=== PATIENT | female | born 1945 | race Caucasian/White ===

== ENCOUNTER 2019-02-18 03:45 | Emergency (ER) | payer MEDICARE, BC ==
[2019-02-18 03:54] VITALS: RESP 18; TEMP 97.7
[2019-02-18] MEDS ORDERED: DIAZEPAM 5 MG/ML 2 ML INJ IM ONE (04:18)
--- NOTE | 2019-02-18 04:30 | ED ---
Back Pain HPI - General Chief Complaint: Back Pain/Injury Stated Complaint: back pain Source: patient, family Limitations: no limitations - History of Present Illness Initial Comments: Anai is a 73-year-old female with a history of chronic back pain for which she is following with neurology. Patient reports that last week she had a cough which seemed to worsen on the spasms in her back. Patient reports that she has seen her primary care physician and was given a shot of anti-inflammatories with no improvement in her back pain. Patient reports she's been unable to sleep tonight due to feeling like her entire back is spasming. Patient reports this is similar to previous episodes of back pain but worse. Patient's been taking anti-inflammatories with no relief. She has a normal gait she denies any weakness in her legs, constipation, L or bladder incontinence. MD Complaint: back pain -: days(s) Place: home Radiation: none Severity: severe Quality: other (spasm) Consistency: constant Improves With: none Worsens With: movement, deep breaths/cough Treatments Prior to Arrival: cold therapy, heat therapy, NSAIDS - Related Data Allergies Allergy/AdvReac Type Severity Reaction Status Date / Time epinephrine Allergy Rash/Hives Verified 02/18/19 03:54 meperidine [From Demerol] Allergy Rash/Hives Verified 02/18/19 03:54 Sulfa (Sulfonamide Allergy Rash/Hives Verified 02/18/19 03:54 Antibiotics) vancomycin Allergy Rash/Hives Verified 02/18/19 03:54 Review of Systems ROS Statement: Those systems with pertinent positive or pertinent negative responses have been documented in the HPI. ROS Other: All systems not noted in ROS Statement are negative. Past Medical History Past Medical History: Hypertension Additional Past Medical History / Comment(s): sciatica History of Any Multi-Drug Resistant Organisms: None Reported Past Surgical History: Appendectomy, Back Surgery, Heart Catheterization, Hysterectomy, Joint Replacement, Orthopedic Surgery, Pacemaker, Tonsillectomy, Tubal Ligation Additional Past Surgical History / Comment(s): carpal tunnel, cataracts, cornea transplant Past Psychological History: No Psychological Hx Reported Smoking Status: Never smoker Past Alcohol Use History: None Reported Past Drug Use History: None Reported General Exam - General Exam Comments Initial Comments: Physical Exam GENERAL: Patient sitting up in bed crying HENT: Normocephalic, Atraumatic. EYES: PERRL, EOMI PULMONARY: Unlabored respirations. CARDIOVASCULAR: RRR ABDOMEN: Soft and nontender with normal bowel sounds. SKIN: Skin is clear with no lesions or rashes and otherwise unremarkable. : Deferred NEUROLOGIC: Patient is alert and oriented x3. Moving all extremities spontaneously MUSCULOSKELETAL: Tenderness to any palpation of the entire back. No focal tenderness. No skin abnormalities. PSYCHIATRIC: Normal psychiatric evaluation Limitations: no limitations Course Vital Signs 02/18/19 02/18/19 03:47 05:08 Temperature 97.7 F Pulse Rate 89 77 Respiratory 18 18 Rate Blood Pressure 146/86 158/86 O2 Sat by Pulse 98 100 Oximetry - Reevaluation(s) Reevaluation #1: I returned to the patients room, she was laying in bed, upon my entry into the room she sat up and again began moaning and stating that the medication isnt working 02/18/19 04:57 Medical Decision Making - Medical Decision Making Patient was seen and evaluated history is obtained from the patient and at bedside Patient with a history of chronic back pain and "throwing her back out" patient reports she has thrown her back out from coughing in the past week she has tried NSAIDs rest, heat, ice with no improvement. This morning it became intolerable a she's not been able to sleep all night. Patient is crying inconsolably. Valium will be ordered for muscle spasm. She was reevaluated after Valium, she appeared to be resting comfortably upon my entering but then began complaining of swelling. At this time IM morphine I'll be ordered. Patient received medications, she was observed to be sleeping comfortably. She reports feeling much better and is comfortable with plan for discharge home she will follow up outpatient with her primary care physician and neurologist to discuss further pain management. All questions pertaining care were answered return parameters were discussed the patient was discharged home in stable condition. Disposition Clinical Impression: Mechanical back pain Disposition: ADMITTED IP TO THIS HOSP Condition: Stable Instructions (If sedation given, give patient instructions): Acute Low Back Pain (ED) Is patient prescribed a controlled substance at d/c from ED?: No Referrals: Quita Ly DO [Primary Care Provider] - 1-2 days
[2019-02-18] MEDS ORDERED: LIDOCAINE 5% PATCH TOPICAL STA (04:57)
[2019-02-18] MEDS ORDERED: MORPHINE SULFATE 4 MG/ML SYRINGE IM STA (04:57)
[2019-02-18 05:09] VITALS: BP 158/86; PULSE 77
== END 2019-02-18 05:40 | disposition other institution (70) ==
LOC: EC 03:45
DX: M54.9 Dorsalgia, unspecified (principal); G89.29 Other chronic pain; M62.830 Muscle spasm of back; R45.83 Excessive crying of child, adolescent or adult; Z88.1 Allergy status to other antibiotic agents; Z88.2 Allergy status to sulfonamides; Z88.5 Allergy status to narcotic agent; Z88.6 Allergy status to analgesic agent; Z95.0 Presence of cardiac pacemaker; Z95.5 Presence of coronary angioplasty implant and graft
CPT/HCPCS: 99283; 96372 ×2; J2270; J3360

== ENCOUNTER → 2019-02-27 | Outpatient (CLI) | payer MEDICARE, BC ==
--- NOTE | 2019-03-13 10:35 | MM ---
Reason for exam: screening (asymptomatic). Last mammogram was performed 1 year and 3 months ago. History: Patient had first child at age 34. Family history of breast cancer in maternal aunt and breast cancer in maternal cousin. Physical Findings: A clinical breast exam by your physician is recommended on an annual basis and results should be correlated with mammographic findings. MG 3D Screening Mammo W/Cad Bilateral CC and MLO view(s) were taken. Prior study comparison: November 22, 2017, mammogram. November 14, 2016, mammogram. The breast tissue is heterogeneously dense. This may lower the sensitivity of mammography. There is no discrete abnormality. No significant changes when compared with prior studies. ASSESSMENT: Negative, BI-RAD 1 RECOMMENDATION: Routine screening mammogram of both breasts in 1 year.
== END | disposition home or self-care (01) ==
LOC: RADMAMWWP 08:27
PROVIDERS: ATTEND Family Medicine
DX: Z12.31 Encounter for screening mammogram for malignant neoplasm of breast (principal)
CPT/HCPCS: 77063; 77067

== ENCOUNTER 2019-06-23 12:11 | Emergency (ER) | payer BC, MEDICARE ==
[2019-06-23 12:22] VITALS: RESP 18
[2019-06-23] MEDS: SODIUM CHLORIDE 0.9% 500 ML 500 ML IV SCH (13:20)
--- NOTE | 2019-06-23 13:20 | ED ---
General Adult HPI - General Chief complaint: Extremity Problem,Nontraumatic Stated complaint: knee pain Time Seen by Provider: 06/23/19 12:51 Source: patient, RN notes reviewed Mode of arrival: wheelchair Limitations: physical limitation - History of Present Illness Initial comments: 73-year-old female with a past medical history of CAD, hypertension, total knee presents to the emergency department for a chief complaint of left knee pain. Patient states this started hurting yesterday and she is unable to walk on it. States that she had a total knee done in 2015. States that in February 2018 it became infected and had to be replaced. States all this was done in [place]. Denies any fevers or chills at this time. States that she sees Dr. Hdez for other orthopedic issues and states that if she were has a problem with the knee she could see Dr. Hunt.Patient has no other complaints at this time including shortness of breath, chest pain, abdominal pain, nausea or vomiting, headache, or visual changes. - Related Data Allergies Allergy/AdvReac Type Severity Reaction Status Date / Time epinephrine Allergy Rash/Hives Verified 06/23/19 12:21 meperidine [From Demerol] Allergy Rash/Hives Verified 06/23/19 12:21 Sulfa (Sulfonamide Allergy Rash/Hives Verified 06/23/19 12:21 Antibiotics) vancomycin Allergy Rash/Hives Verified 06/23/19 12:21 Review of Systems ROS Statement: Those systems with pertinent positive or pertinent negative responses have been documented in the HPI. ROS Other: All systems not noted in ROS Statement are negative. Past Medical History Past Medical History: Coronary Artery Disease (CAD), Hypertension, Myocardial Infarction (IA) Additional Past Medical History / Comment(s): sciatica History of Any Multi-Drug Resistant Organisms: None Reported Past Surgical History: Appendectomy, Back Surgery, Heart Catheterization, Hysterectomy, Joint Replacement, Orthopedic Surgery, Pacemaker, Tonsillectomy, Tubal Ligation Additional Past Surgical History / Comment(s): carpal tunnel, cataracts, cornea transplant Past Psychological History: No Psychological Hx Reported Smoking Status: Never smoker Past Alcohol Use History: None Reported Past Drug Use History: None Reported General Exam Limitations: physical limitation General appearance: alert, in no apparent distress Head exam: Present: atraumatic, normocephalic, normal inspection Eye exam: Present: normal appearance, PERRL, EOMI. Absent: scleral icterus, conjunctival injection, periorbital swelling ENT exam: Present: normal exam, mucous membranes moist Neck exam: Present: normal inspection, full ROM. Absent: tenderness, meni ngismus Respiratory exam: Present: normal lung sounds bilaterally. Absent: respiratory distress, wheezes, rales, rhonchi, stridor Cardiovascular Exam: Present: regular rate, normal rhythm, normal heart sounds. Absent: systolic murmur, diastolic murmur, rubs, gallop, clicks Extremities exam: Present: tenderness (Generalized tenderness of the left knee), normal capillary refill (cap refill less than 2 seconds, DP pulse 2+ in the left lower extremity), joint swelling (She does have edema with erythema noted of the left knee. There is an old surgical scar), other (Mild erythema is noted of the calf as well.). Absent: full ROM (Patient has about 10 flexion of the left knee which is limited by pain), pedal edema, calf tenderness (She does have calf tenderness) Course Vital Signs 06/23/19 06/23/19 06/23/19 12:19 13:01 15:35 Temperature 99.2 F 100.0 F H 100.9 F H Pulse Rate 109 H 104 H Respiratory 18 18 Rate Blood Pressure 132/67 161/81 O2 Sat by Pulse 97 97 Oximetry Procedures - Joint Aspiration/Injection Consent Obtained: verbal consent Indications: R/O septic arthritis Side of Body: left Joint Aspirated: knee Ultrasound Guidance: No Skin Prep: sterile prep and drape Local Anesthesia Used: Lidocaine 1% Amount of Anesthesia Used (mLs): 2 Needle Size Used: 18G Syringe Size Used: 10cc Fluid Obtained: purulent Total Fluid Obtained (mls): 40 Patient Tolerated Procedure: well, no complications Complications: none Medical Decision Making - Medical Decision Making She was evaluated. HPI and physical exam as documented. Patient has edema and erythema noted to the left knee with tenderness flexion. CBC was obtained which shows a white count of 15.5 with a left shift. CMP unremarkable. ESR of 40. CRP of 246. X-ray of the left knee shows arthroplasty. Prosthetic elements appearing good position. Ultrasound was obtained that showed no evidence of DVT in the left leg. I did tap the left knee and got 40 mL of cloudy yellow fluid. These results are pending. Patient was started on Rocephin. Patient is ALLERGIC to vancomycin with symptoms of angioedema. I spoke with Dr. Connell regarding this patient. He does not feel comfortable revising a hinged stem replacement. He spoke with Dr. Hdez and Dr Benavidez who also do not feel comfortable managing this revision. Dr. Connell recommended Located [facility] given advanced Joint replacement program. Dr. Mendez did accept the patient. Abbe from transfer team called back and recommended not starting antibiotics in this patient unless she is septic. I did relay to him that she is febrile and I did give 1 dose of Rocephin. I discussed with him that vancomycin was not given as patient is ALLERGIC and he will alert Dr. Mendez. - Lab Data Result diagrams: 06/23/19 13:25 06/23/19 13:25 Lab Results 06/23/19 06/23/19 06/23/19 Range/Units 13:25 13:25 13:25 WBC 15.5 H (3.8-10.6) k/uL RBC 4.66 (3.80-5.40) m/uL Hgb 13.5 (11.4-16.0) gm/dL Hct 39.7 (34.0-46.0) % MCV 85.2 (80.0-100.0) fL MCH 29.0 (25.0-35.0) pg MCHC 34.0 (31.0-37.0) g/dL RDW 12.8 (11.5-15.5) % Plt Count 386 (150-450) k/uL Neutrophils % 86 % Lymphocytes % 4 % Monocytes % 7 % Eosinophils % 1 % Basophils % 1 % Neutrophils # 13.3 H (1.3-7.7) k/uL Lymphocytes # 0.6 L (1.0-4.8) k/uL Monocytes # 1.0 (0-1.0) k/uL Eosinophils # 0.1 (0-0.7) k/uL Basophils # 0.2 (0-0.2) k/uL ESR 40 H (0-20) mm/hr PT (9.0-12.0) sec INR (<1.2) APTT (22.0-30.0) sec Sodium 134 L (137-145) mmol/L Potassium 3.8 (3.5-5.1) mmol/L Chloride 100 (98-107) mmol/L Carbon Dioxide 25 (22-30) mmol/L Anion Gap 9 mmol/L BUN 15 (7-17) mg/dL Creatinine 0.71 (0.52-1.04) mg/dL Est GFR (CKD-EPI)AfAm >90 (>60 ml/min/1.73 sqM) Est GFR (CKD-EPI)NonAf 86 (>60 ml/min/1.73 sqM) Glucose 113 H (74-99) mg/dL Plasma Lactic Acid Maycol 0.6 L (0.7-2.0) mmol/L Calcium 9.4 (8.4-10.2) mg/dL Total Bilirubin 0.5 (0.2-1.3) mg/dL AST 19 (14-36) U/L ALT 16 (9-52) U/L Alkaline Phosphatase 74 (38-126) U/L C-Reactive Protein 246.6 H (<10.0) mg/L Total Protein 6.9 (6.3-8.2) g/dL Albumin 3.9 (3.5-5.0) g/dL Fluid Source Fluid Color Fluid Appearance Fluid RBC /uL Fluid Nucleated Cells /uL Fluid Polynuclear WBCs % Fluid Mononuclear WBCs % 06/23/19 06/23/19 Range/Units 13:25 15:00 WBC (3.8-10.6) k/uL RBC (3.80-5.40) m/uL Hgb (11.4-16.0) gm/dL Hct (34.0-46.0) % MCV (80.0-100.0) fL MCH (25.0-35.0) pg MCHC (31.0-37.0) g/dL RDW (11.5-15.5) % Plt Count (150-450) k/uL Neutrophils % % Lymphocytes % % Monocytes % % Eosinophils % % Basophils % % Neutrophils # (1.3-7.7) k/uL Lymphocytes # (1.0-4.8) k/uL Monocytes # (0-1.0) k/uL Eosinophils # (0-0.7) k/uL Basophils # (0-0.2) k/uL ESR (0-20) mm/hr PT 9.8 (9.0-12.0) sec INR 0.9 (<1.2) APTT 24.4 (22.0-30.0) sec Sodium (137-145) mmol/L Potassium (3.5-5.1) mmol/L Chloride (98-107) mmol/L Carbon Dioxide (22-30) mmol/L Anion Gap mmol/L BUN (7-17) mg/dL Creatinine (0.52-1.04) mg/dL Est GFR (CKD-EPI)AfAm (>60 ml/min/1.73 sqM) Est GFR (CKD-EPI)NonAf (>60 ml/min/1.73 sqM) Glucose (74-99) mg/dL Plasma Lactic Acid Maycol (0.7-2.0) mmol/L Calcium (8.4-10.2) mg/dL Total Bilirubin (0.2-1.3) mg/dL AST (14-36) U/L ALT (9-52) U/L Alkaline Phosphatase (38-126) U/L C-Reactive Protein (<10.0) mg/L Total Protein (6.3-8.2) g/dL Albumin (3.5-5.0) g/dL Fluid Source Synovial Fluid Color Yellow Fluid Appearance Cloudy Fluid RBC 1250 /uL Fluid Nucleated Cells 82909 /uL Fluid Polynuclear WBCs 85 % Fluid Mononuclear WBCs 15 % Disposition Clinical Impression: Septic joint of left knee joint Disposition: OTHER INSTITUTION NOT DEFINED Condition: Good Is patient prescribed a controlled substance at d/c from ED?: No Referrals: Quita Ly DO [Primary Care Provider] - 1-2 days Time of Disposition: 16:19 - Out of Hospital Transfer - Req. Specs Out of Hospital Transfer - Requested Specifics: Other Emergency Center (Located Within [facility])
[2019-06-23 13:40] LABS: Basophils # (A) 0.2 k/uL (0-0.2); Basophils % (A) 1 %; Eosinophils # (A) 0.1 k/uL (0-0.7); Eosinophils % (A) 1 %; HCT 39.7 % (34.0-46.0); HGB 13.5 gm/dL (11.4-16.0); Lymphocytes # (A) 0.6 k/uL (1.0-4.8); Lymphocytes % (A) 4 %; MCV 85.2 fL (80.0-100.0); Mean Platelet Volume 5.7; Monocytes % (A) 7 %; Neutrophils # (A) 13.3 k/uL (1.3-7.7); Neutrophils % (A) 86 %; Platelet Count 386 k/uL (150-450); RBC 4.66 m/uL (3.80-5.40); RDW 12.8 % (11.5-15.5); WBC 15.5 k/uL (3.8-10.6)
[2019-06-23 13:50] LABS: INR 0.9 (<1.2); Partial Thromboplastin Time 24.4 sec (22.0-30.0); Prothrombin Time 9.8 sec (9.0-12.0)
[2019-06-23 13:52] LABS: ALT 16 U/L (9-52); AST 19 U/L (14-36); African American GFR (CKD) >90 (>60 ml/min/1.73 sqM); Albumin 3.9 g/dL (3.5-5.0); Alkaline Phosphatase 74 U/L (38-126); Anion Gap 9 mmol/L; Blood Urea Nitrogen 15 mg/dL (7-17); Calcium 9.4 mg/dL (8.4-10.2); Carbon Dioxide 25 mmol/L (22-30); Chloride 100 mmol/L (98-107); Glucose 113 mg/dL (74-99); Potassium 3.8 mmol/L (3.5-5.1); Sodium 134 mmol/L (137-145); Total Bilirubin 0.5 mg/dL (0.2-1.3); Total Protein 6.9 g/dL (6.3-8.2)
[2019-06-23 14:06] LABS: C Reactive Protein 246.6 mg/L (<10.0)
--- NOTE | 2019-06-23 14:16 | US ---
EXAMINATION TYPE: US venous doppler duplex LE LT DATE OF EXAM: 06/23/2019 2:08 PM COMPARISON: NONE CLINICAL HISTORY: swelling. Left leg swelling for more than 1 year, left leg pain x 2 days SIDE PERFORMED: Left TECHNIQUE: The lower extremity deep venous system is examined utilizing real time linear array sonog bebeto with graded compression, doppler sonography and color-flow sonography. VESSELS IMAGED: External Iliac Vein (EIV) Common Femoral Vein Deep Femoral Vein Greater Saphenous Vein * Femoral Vein Popliteal Vein Small Saphenous Vein * Proximal Calf Veins (* superficial vessels) Left Leg: Appears negative for DVT IMPRESSION: No evidence of deep venous thrombosis in the left leg.
[2019-06-23 14:17] LABS: Erythrocyte Sedimentation Rate 40 mm/hr (0-20)
--- NOTE | 2019-06-23 14:17 | XR ---
EXAMINATION TYPE: XR knee complete LT , 3 VIEWS DATE OF EXAM ORDERED: 06/23/2019 HISTORY: pain, total knee 1 yr ago. COMPARISON: None. FINDINGS: A longstem knee prosthesis is in place. Prosthetic elements appear in good position. No fr acture or dislocation is seen. IMPRESSION: STATUS POST LEFT KNEE ARTHROPLASTY.
[2019-06-23 15:37] LABS: Appearance,BF Cloudy; Color,BF Yellow; Nucleated Cells, Body Fluid 44900 /uL; RBC, Body Fluid 1250 /uL
[2019-06-23 15:42] LABS: Mononuclear WBC,Body Fluid 15 %; Polynuclear WBC,Body Fluid 85 %; Total Cells Counted,Body Fluid 100
[2019-06-23] MEDS ORDERED: ACETAMINOPHEN TAB 325 MG TAB PO STA (16:01)
[2019-06-23] MEDS ORDERED: cefTRIAXone IN SWFI 1,000 MG/10 ML SYRINGE IVP STA ×2 (16:04→16:10)
[2019-06-23 16:54] VITALS: BP 157/81; PULSE 102; TEMP 99.4
[2019-06-24 10:24] LABS: Glucose, BF Source Body Fluid; Glucose, Body Fluid <4 mg/dL; LDH, Body Fluid Source Body Fluid
[2019-06-24 10:35] LABS: Total Protein, Body Fluid 5200 mg/dL
== END 2019-06-23 17:01 | disposition short-term general hospital (02) ==
LOC: EC 12:11
DX: M00.862 Arthritis due to other bacteria, left knee (principal); Z88.1 Allergy status to other antibiotic agents; Z88.2 Allergy status to sulfonamides; Z88.5 Allergy status to narcotic agent; Z88.8 Allergy status to other drugs, medicaments and biological substances
CPT/HCPCS: 36415; 89060; 80053; 85652; 89050; 83605; 85025; 85610; 85730; 86140; 87040; 87070; 87205; 82945; 83615; 84157; 73562; 93971; 99285; 20610; 96365; 96361; J0696

== ENCOUNTER → 2020-03-17 | Outpatient (CLI) | payer MEDICARE ==
--- NOTE | 2020-03-18 08:38 | MM ---
Reason for exam: screening (asymptomatic). Last mammogram was performed 1 year and 1 month ago. History: Patient had first child at age 34. Family history of breast cancer in maternal aunt and breast cancer in maternal cousin. Physical Findings: A clinical breast exam by your physician is recommended on an annual basis and results should be correlated with mammographic findings. MG 3D Screening Mammo W/Cad Bilateral CC and MLO view(s) were taken. Prior study comparison: February 27, 2019, bilateral MG 3d screening mammo w/cad. November 22, 2017, mammogram. There are scattered fibroglandular densities. There are benign appearing round calcifications bilaterally. There is no discrete abnormality. Left axillary pacemaker. ASSESSMENT: Benign, BI-RAD 2 RECOMMENDATION: Routine screening mammogram of both breasts in 1 year.
== END | disposition home or self-care (01) ==
LOC: RADMAMWWP 09:15
PROVIDERS: ATTEND Family Medicine
DX: Z12.31 Encounter for screening mammogram for malignant neoplasm of breast (principal)
CPT/HCPCS: 77063; 77067

== ENCOUNTER → 2020-04-16 | Outpatient (CLI) | payer MEDICARE ==
[2020-04-16 14:25] LABS: Basophils # (A) 0.1 k/uL (0-0.2); Basophils % (A) 1 %; Eosinophils # (A) 0.3 k/uL (0-0.7); Eosinophils % (A) 4 %; HCT 38.2 % (34.0-46.0); HGB 12.1 gm/dL (11.4-16.0); Lymphocytes % (A) 12 %; MCH 26.8 pg (25.0-35.0); MCHC 31.7 g/dL (31.0-37.0); MCV 84.3 fL (80.0-100.0); Mean Platelet Volume 7.6; Monocytes # (A) 0.4 k/uL (0-1.0); Monocytes % (A) 5 %; Neutrophils # (A) 5.8 k/uL (1.3-7.7); Neutrophils % (A) 75 %; Platelet Count 293 k/uL (150-450); RBC 4.53 m/uL (3.80-5.40); RDW 14.1 % (11.5-15.5); WBC 7.7 k/uL (3.8-10.6)
[2020-04-16 15:01] LABS: Total Eosinophil Count 339 #EOS/uL (150-300)
[2020-04-16 20:10] LABS: Cat Epith & Dander IgE <0.10 kU/L; Dermato. farinae IgE <0.10 kU/L; Dog Dander IgE <0.10 kU/L
[2020-04-16 20:11] LABS: Cladosporian herbarum IgE <0.10 kU/L; Cockroach IgE <0.10 kU/L
[2020-04-16 20:12] LABS: Alternaria alternata IgE <0.10 kU/L; Aspergillus fumagatus IgE <0.10 kU/L; Maple (Box Elder) IgE <0.10 kU/L
[2020-04-16 20:13] LABS: Birch IgE <0.10 kU/L; Elm IgE <0.10 kU/L; Oak IgE <0.10 kU/L; Ragweed,Common IgE <0.10 kU/L
[2020-04-16 20:14] LABS: Red Top (Bentgrass) IgE <0.10 kU/L
== END | disposition home or self-care (01) ==
LOC: LABWHC1 13:53
PROVIDERS: ATTEND Internal Medicine
DX: J45.909 Unspecified asthma, uncomplicated (principal); R05 Cough
CPT/HCPCS: 36415; 82164; 82785; 85008; 85025; 86003

== ENCOUNTER → 2020-07-13 | Outpatient (CLI) | payer MEDICARE ==
--- NOTE | 2020-07-13 16:17 | CT ---
EXAMINATION TYPE: CT chest w con DATE OF EXAM: 07/13/2020 COMPARISON: HISTORY: cough CT DLP: 238.2 mGycm Automated exposure control for dose reduction was used. CONTRAST: CT scan of the chest is performed with IV Contrast, patient injected with 80cc mL of Isovue 300. FINDINGS: LUNGS: 6 mm groundglass nodular density within the lingula is nonspecific. No additional nodules are seen. There is no evidence for focal consolidation. No mass or volume loss. No evidence for free flui d. There is no pleural effusion or pneumothorax seen. The tracheobronchial tree is patent. MEDIASTINUM: There are no greater than 1 cm hilar or mediastinal lymph nodes. No pericardial effusi on is seen. Thoracic aorta is of normal caliber. The heart is not enlarged. UPPER ABDOMEN: No significant abnormality appreciated. OTHER: No additional significant abnormality is seen. IMPRESSION: 6 mm groundglass nodular density within the lingula is nonspecific. Follow-up CT of the chest is cleve mmended in 12 months.
== END | disposition home or self-care (01) ==
LOC: RADCTMAIN 14:58
PROVIDERS: ATTEND Internal Medicine Critical Care Medicine
DX: J98.4 Other disorders of lung (principal)
CPT/HCPCS: 82565; 84520; 71260; 36415; Q9967

== ENCOUNTER → 2020-09-29 | Outpatient (CLI) | payer MEDICARE ==
--- NOTE | 2020-09-29 14:39 | CT ---
EXAMINATION TYPE: CT lumbar spine wo con DATE OF EXAM: 09/29/2020 COMPARISON: 02/20/2019 HISTORY: lumbago CT DLP: 901 mGycm CONTRAST: None TECHNIQUE: CT of the lumbar spine is performed on a spiral scan at 3 mm thick sections. Reconstructed images are performed in the coronal and sagittal planes. FINDINGS: T11-T12: No focal disc herniation or significant disc bulge is evident. No spinal canal stenosis or neural foraminal stenosis is present. T12-L1: No focal disc herniation or significant disc bulge is evident. No spinal canal stenosis or neural foraminal stenosis is present. L1-L2: No focal disc herniation or significant disc bulge is evident. No spinal canal stenosis or n eural foraminal stenosis is present L2-L3: Broad-based disc bulge has mild anterior thecal sac compression. Facet hypertrophy and ligamen nii flavum laxity has posterior lateral thecal sac compression. No stenosis is present. Moderate righ t and mild left foraminal narrowing is present. Loss of disc height and vacuum disc phenomenon is pre sent. L3-L4: Broad-based disc bulge has moderate anterior thecal sac compression. Facet hypertrophy and lig amentum flavum laxity has posterior lateral thecal sac compression. Mild canal narrowing is present. No stenosis is present. Moderate right and mild to moderate left foraminal narrowing is present. L4-L5: There is loss of disc height and vacuum disc phenomenon present at this level. Broad-based dis c bulge is moderate thecal sac compression. Ligamentum flavum laxity is present with posterior latera l thecal sac compression contributing to lateral canal stenosis. Severe right and left foraminal sten osis is present L5-S1: Mild disc bulge is present. No AP spinal canal stenosis present. Some ligament calcification i s not excluded. No spinal canal stenosis or neural foraminal stenosis is present. Vertebral alignment appears normal. Vertebral body heights are preserved. There is loss of disc heigh t L2-3 through L4-5 present. IMPRESSION: 1. Advanced degenerative disc changes L4-5. 2. Severe foraminal narrowing L4-5 with moderate foraminal narrowing in the upper lumbar spine discus sed above. 3. Spinal canal narrowing, predominantly in the lateral direction, due to disc bulging and ligamentum flavum laxity L4-L5. Milder spinal canal narrowing may be present L3-4.
== END | disposition home or self-care (01) ==
LOC: RADCTMAIN 13:14
PROVIDERS: ATTEND Psychiatry & Neurology Neurology
DX: M48.061 Spinal stenosis, lumbar region without neurogenic claudication (principal); M51.26 Other intervertebral disc displacement, lumbar region; M47.816 Spondylosis without myelopathy or radiculopathy, lumbar region; M50.20 Other cervical disc displacement, unspecified cervical region; M51.27 Other intervertebral disc displacement, lumbosacral region; M96.1 Postlaminectomy syndrome, not elsewhere classified
CPT/HCPCS: 72131

== ENCOUNTER → 2020-12-02 | Outpatient (CLI) | payer MEDICARE ==
--- NOTE | 2020-12-02 10:29 | BD ---
EXAMINATION TYPE: Axial Bone Density DATE OF EXAM: 12/02/2020 COMPARISON: NONE CLINICAL HISTORY: Height: 62.5 Weight: 156.2 FRAX RISK QUESTIONS: Alcohol (3 or more units per day): no Family History (Parent hip fracture): no Glucocorticoids (More than 3mos): no (Ex: prednisone, prednisolone, methylprednisolone, dexamethasone, and hydrocortisone). History of Fracture in Adulthood: yes Secondary Osteoporosis: 1. Type 1 Diabetes: no 2. Hyperthyroidism: no 3. Menopause before 45: yes 4. Malnutrition: no 5. Chronic liver disease: no Rheumatoid Arthritis: yes Current Tobacco Use: no RISK FACTORS HISTORY OF: Surgery to Spine/Hip(right/left)/Wrist (right/left): c-spine fusion Family History of Osteoporosis: yes Active: no Diet low in dairy products/other sources of calcium: no Postmenopausal woman: age 45 Lost more than 2 inches in height since high school: no MEDICATIONS: list scanned into pacs Thyroid Medications: levothyroxine How Lon years Additional History: EXAM MEASUREMENTS: Bone mineral densitometry was performed using the [employer] System. Bone mineral density as measured about the Lumbar spine is: ----- L1-L4(G/cm2): 0.921 T Score Values are as follows: ----- L2: -3.1 ----- L3: -1.9 ----- L4: -1.2 ----- L1-L4: -2.2 Bone mineral density : baseline Bone mineral density about the R hip (g/cm2): 0.702 Bone mineral density about the L hip (g/cm2): 0.677 T Score values are as follows: -----R Neck: -2.4 -----L Neck: -2.6 -----R Total: -1.9 -----L Total: -2.6 Bone mineral density : baseline IMPRESSION: osteoporosis NOTE: T-SCORE=SD OF THE YOUNG ADULT MEAN.
== END | disposition home or self-care (01) ==
LOC: RADBDWWP 08:41
PROVIDERS: ATTEND Family Medicine
DX: M81.0 Age-related osteoporosis without current pathological fracture (principal); Z78.0 Asymptomatic menopausal state
CPT/HCPCS: 77080

== ENCOUNTER → 2021-03-18 | Outpatient (CLI) | payer MEDICARE ==
--- NOTE | 2021-03-19 11:56 | MM ---
Reason for exam: screening (asymptomatic). Last mammogram was performed 1 year ago. History: Patient had first child at age 34. Family history of breast cancer in maternal aunt and breast cancer in maternal cousin. Benign excisional biopsy of the left breast, 1971. Took estrogen beginning at age 44. Physical Findings: A clinical breast exam by your physician is recommended on an annual basis and results should be correlated with mammographic findings. MG 3D Screening Mammo W/Cad Bilateral CC and MLO view(s) were taken. Prior study comparison: March 17, 2020, bilateral MG 3d screening mammo w/cad. February 27, 2019, bilateral MG 3d screening mammo w/cad. There are scattered fibroglandular densities. Finding: There are stable from 2020 segmental fine calcifications in the right breast. New finding since March 17, 2020 and February 27, 2019. ASSESSMENT: Incomplete: need additional imaging evaluation, BI-RAD 0 RECOMMENDATION: Special view mammogram of the right breast. [facility] will attempt to contact patient to return for supplemental views.
== END | disposition home or self-care (01) ==
LOC: RADMAMWWP 11:07
PROVIDERS: ATTEND Family Medicine
DX: Z12.31 Encounter for screening mammogram for malignant neoplasm of breast (principal); Z80.3 Family history of malignant neoplasm of breast; Z79.818 Long term (current) use of other agents affecting estrogen receptors and estrogen levels
CPT/HCPCS: 77063; 77067

== ENCOUNTER → 2021-03-22 | Outpatient (CLI) | payer MEDICARE ==
--- NOTE | 2021-03-26 11:38 | MM ---
Reason for exam: additional evaluation requested from abnormal screening. Last mammogram was performed less than 1 month ago. History: Family history of breast cancer in maternal aunt and breast cancer in maternal cousin. Benign excisional biopsy of the left breast, 1970. Took estrogen beginning at age 44. Physical Findings: Nurse did not find any significant physical abnormalities on exam. MG 3D Work Up W/Cad RT CC with magnification, LM with magnification, and LM view(s) were taken of the right breast. Prior study comparison: March 18, 2021, bilateral MG 3d screening mammo w/cad. March 17, 2020, bilateral MG 3d screening mammo w/cad. There are scattered fibroglandular densities. 12 o'clock anterior grouped calcifications. some of the images suggest that these may be vascular. 6 month follow up recommended. These results were verbally communicated with the patient and result sheet given to the patient on 03/22/21. ASSESSMENT: Probably benign, BI-RAD 3 RECOMMENDATION: Follow-up diagnostic mammogram of the right breast in 6 months.
== END | disposition home or self-care (01) ==
LOC: RADMAMWWP 08:56
PROVIDERS: ATTEND Family Medicine
DX: N64.89 Other specified disorders of breast (principal); R92.1 Mammographic calcification found on diagnostic imaging of breast; Z80.3 Family history of malignant neoplasm of breast
CPT/HCPCS: 77065; G0279; 77061

== ENCOUNTER 2021-03-26 16:21 | Observation (INO) | payer MEDICARE ==
[2021-03-26] MEDS ORDERED: MORPHINE SULFATE 4 MG/ML SYRINGE IVP STA (16:37)
[2021-03-26] MEDS ORDERED: SODIUM CHLORIDE 0.9% 1,000 ML IV STA (16:37)
[2021-03-26] MEDS ORDERED: PANTOPRAZOLE 40 MG/10 ML VIAL IVP STA (16:37)
[2021-03-26] MEDS ORDERED: ONDANSETRON 4 MG/2 ML VIAL IVP STA (17:04)
[2021-03-26 17:06] LABS: Basophils % (A) 0 %; Eosinophils # (A) 0.3 k/uL (0-0.7); Eosinophils % (A) 2 %; HCT 40.4 % (34.0-46.0); HGB 13.8 gm/dL (11.4-16.0); Lymphocytes # (A) 0.8 k/uL (1.0-4.8); Lymphocytes % (A) 6 %; MCH 28.3 pg (25.0-35.0); MCHC 34.1 g/dL (31.0-37.0); MCV 83.2 fL (80.0-100.0); Monocytes # (A) 0.6 k/uL (0-1.0); Monocytes % (A) 5 %; Neutrophils % (A) 86 %; Platelet Count 256 k/uL (150-450); RBC 4.86 m/uL (3.80-5.40); RDW 15.3 % (11.5-15.5); WBC 12.8 k/uL (3.8-10.6)
[2021-03-26 17:15] LABS: ALT 18 U/L (4-34); AST 24 U/L (14-36); African American GFR (CKD) >90 (>60 ml/min/1.73 sqM); Albumin 3.9 g/dL (3.5-5.0); Alkaline Phosphatase 96 U/L (38-126); Anion Gap 9 mmol/L; Blood Urea Nitrogen 14 mg/dL (7-17); Calcium 8.8 mg/dL (8.4-10.2); Carbon Dioxide 22 mmol/L (22-30); Chloride 102 mmol/L (98-107); Glucose 106 mg/dL (74-99); Non-African American GFR(CKD) 79 (>60 ml/min/1.73 sqM); Potassium 4.1 mmol/L (3.5-5.1); Sodium 133 mmol/L (137-145); Total Bilirubin 0.6 mg/dL (0.2-1.3); Total Protein 6.5 g/dL (6.3-8.2)
--- NOTE | 2021-03-26 17:48 | CT ---
EXAMINATION TYPE: CT abdomen pelvis w con DATE OF EXAM: 03/26/2021 COMPARISON: None available. HISTORY: Lower abdominal pain and bright red rectal bleeding. CT DLP: 796.4 mGycm Automated exposure control for dose reduction was used. TECHNIQUE: Helical acquisition of images was performed from the lung bases through the pelvis. CONTRAST: Performed without Oral Contrast and with IV Contrast, patient injected with 100ml mL of Isovue 300. FINDINGS: LUNG BASES: No significant abnormality is appreciated. LIVER/GB: No acute abnormality is appreciated. Hepatic steatosis. PANCREAS: No significant abnormality is seen. SPLEEN: No significant abnormality is seen. ADRENALS: No significant abnormality is seen. KIDNEYS: No significant abnormality is seen. FREE AIR: No free air is visualized. RETROPERITONEAL ADENOPATHY: None visualized REPRODUCTIVE ORGANS: No significant abnormality is seen URINARY BLADDER: No significant abnormality is seen. PELVIC ADENOPATHY: None visualized. OSSEOUS STRUCTURES: No acute abnormality is seen. Moderate L4-L5 spondylosis. BOWEL: Diffuse moderate wall thickening of the distal transverse colon through the distal descending colon. Associated mild fat stranding. No bowel obstruction, free air or fluid. Mild colonic divertic ulosis. Small hiatal hernia. OTHER: Moderate atherosclerotic disease. IMPRESSION: DIFFUSE LEFT-SIDED COLONIC WALL THICKENING WITH SURROUNDING INFLAMMATORY CHANGES. FINDINGS MAY RELATE TO COLITIS. MALIGNANCY CANNOT BE EXCLUDED. RECOMMEND COLONOSCOPY CORRELATION. NO BOWEL OBSTRUCTION, FREE AIR OR FLUID.
--- NOTE | 2021-03-26 17:52 | ED ---
GI Bleed HPI - General Chief complaint: GI Bleed Stated complaint: Rectal Bleeding Time Seen by Provider: 03/26/21 16:25 Source: patient, RN notes reviewed Mode of arrival: ambulatory Limitations: no limitations - History of Present Illness Initial comments: Patient is a 75-year-old female that presents to the emergency department complaining of lower abdominal pain with bright red blood per rectum for the past several days. She notes that it got increasingly worse today so she came in to get evaluated. She noted that her pain was approximately 6-7 out of 10 with no relief from at home medications. She noted that she did not try to take anything as she did not want to complicate the issue. She was otherwise a well- appearing 75-year-old female. She denied any history of Crohn's ulcerative colitis diverticulitis or other abdominal issues. She denied any chest pain shortness of breath headache nausea vomiting diarrhea constipation fever fatigue chills. - Related Data Home Medications Medication Instructions Recorded Confirmed Albuterol Sulfate [Proair Hfa] 2 puff INHALATION RT-QID PRN 03/26/21 03/26/21 Ascorbic Acid [Vitamin C] 500 mg PO BID 03/26/21 03/26/21 Atorvastatin Calcium [Lipitor] 40 mg PO HS 03/26/21 03/26/21 Calcium 600-Vit D3 1 tab PO BID 03/26/21 03/26/21 Candesartan Cilexetil 4 mg PO HS 03/26/21 03/26/21 Cetirizine HCl [Zyrtec] 10 mg PO DAILY 03/26/21 03/26/21 Curcumin 750mg 1 tab PO DAILY 03/26/21 03/26/21 Cyclobenzaprine [Flexeril] 10 mg PO TID PRN 03/26/21 03/26/21 Denosumab [Prolia] 1 dose SQ Q180D 03/26/21 03/26/21 Diltiazem HCl [Diltiazem HCl 24Hr 360 mg PO DAILY 03/26/21 03/26/21 ER ([place])] Docusate [Colace] 100 mg PO DAILY PRN 03/26/21 03/26/21 Doxycycline Hyclate [Vibramycin] 100 mg PO BID 03/26/21 03/26/21 Ezetimibe [Zetia] 10 mg PO HS 03/26/21 03/26/21 Fluticasone Nasal [place] [Flonase 2 spr EA NOSTRIL BID PRN 03/26/21 03/26/21 Nasal [place]] Gabapentin [Neurontin] 300 mg PO HS 03/26/21 03/26/21 Ketotifen Fumarate [Alaway] 1 drop BOTH EYES DAILY 03/26/21 03/26/21 L.acidoph,Paracasei, B.lactis 1 cap PO DAILY 03/26/21 03/26/21 [Probiotic] Levothyroxine Sodium [Synthroid] 25 mcg PO DAILY 03/26/21 03/26/21 Mometasone/Formoterol [Dulera 200 2 puff PO RT-BID 03/26/21 03/26/21 Mcg-5 Mcg Inhaler] Montelukast Sodium [Singulair] 10 mg PO HS 03/26/21 03/26/21 Nitroglycerin Sl Tabs [Nitrostat] 0.4 mg SUBLINGUAL Q5M PRN 03/26/21 03/26/21 Omeprazole 40 mg PO BID 03/26/21 03/26/21 Tiotropium 2.5 Mcg/Puff [Spiriva 2 puff INHALATION RT-DAILY 03/26/21 03/26/21 Respimat 2.5 Mcg] Ubidecarenone [Co Q-10] 100 mg PO DAILY 03/26/21 03/26/21 Vitamin B Complex 1 cap PO DAILY 03/26/21 03/26/21 Allergies Allergy/AdvReac Type Severity Reaction Status Date / Time ceftriaxone [From Rocephin] Allergy Rash/Hives Verified 03/26/21 17:01 epinephrine Allergy Rash/Hives Verified 03/26/21 17:01 meperidine [From Demerol] Allergy Rash/Hives Verified 03/26/21 17:01 Sulfa (Sulfonamide Allergy Rash/Hives Verified 03/26/21 17:01 Antibiotics) vancomycin Allergy Rash/Hives Verified 03/26/21 17:01 Review of Systems ROS Statement: Those systems with pertinent positive or pertinent negative responses have been documented in the HPI. ROS Other: All systems not noted in ROS Statement are negative. Past Medical History Past Medical History: Coronary Artery Disease (CAD), Hypertension, Myocardial Infarction ([place]) Additional Past Medical History / Comment(s): sciatica History of Any Multi-Drug Resistant Organisms: None Reported Past Surgical History: Appendectomy, Back Surgery, Heart Catheterization, Hysterectomy, Joint Replacement, Orthopedic Surgery, Pacemaker, Tonsillectomy, Tubal Ligation Additional Past Surgical History / Comment(s): carpal tunnel, cataracts, cornea transplant Past Psychological History: No Psychological Hx Reported Smoking Status: Never smoker Past Alcohol Use History: None Reported Past Drug Use History: None Reported General Exam Limitations: no limitations General appearance: alert, in no apparent distress Head exam: Present: atraumatic, normocephalic, normal inspection Eye exam: Present: normal appearance, PERRL, EOMI. Absent: scleral icterus, conjunctival injection, periorbital swelling Neck exam: Present: normal inspection Respiratory exam: Present: normal lung sounds bilaterally. Absent: respiratory distress, wheezes, rales, rhonchi, stridor Cardiovascular Exam: Present: regular rate, normal rhythm, normal heart sounds. Absent: systolic murmur, diastolic murmur, rubs, gallop, clicks GI/Abdominal exam: Present: soft, tenderness (Left lower quadrant), normal bowel sounds. Absent: distended, guarding, rebound, rigid Extremities exam: Present: normal inspection, full ROM, normal capillary refill. Absent: tenderness, pedal edema, joint swelling, calf tenderness Neurological exam: Present: alert, oriented X3 Psychiatric exam: Present: normal affect, normal mood Skin exam: Present: warm, dry, intact, normal color. Absent: rash Course Vital Signs 03/26/21 03/26/21 16:22 17:49 Temperature 98.0 F Pulse Rate 115 H 81 Respiratory 20 18 Rate Blood Pressure 128/81 153/84 O2 Sat by Pulse 98 95 Oximetry Medical Decision Making - Medical Decision Making 75-year-old male complaining of bright red blood per rectum for the past several days. Labs, 1 L normal saline, CT of the abdomen and pelvis, 4 g of morphine, 4 mg Zofran, 40 mg of Protonix ordered. Labs: Elevated white count at 12.8, rest unremarkable. CT shows diffuse colonic wall thickening cannot rule out malignancy. Case discussed with Dr. Hill, patient will be admitted inpatient. Se Rodriguez was consulted for [facility] and accepted the admit with GI on consult for colonoscopy. Broad-spectrum antibiotics were initiated. - Lab Data Result diagrams: 03/26/21 16:57 03/26/21 16:57 Lab Results 03/26/21 03/26/21 03/26/21 Range/Units 16:57 16:57 16:57 WBC 12.8 H (3.8-10.6) k/uL RBC 4.86 (3.80-5.40) m/uL Hgb 13.8 (11.4-16.0) gm/dL Hct 40.4 (34.0-46.0) % MCV 83.2 (80.0-100.0) fL MCH 28.3 (25.0-35.0) pg MCHC 34.1 (31.0-37.0) g/dL RDW 15.3 (11.5-15.5) % Plt Count 256 (150-450) k/uL MPV 8.0 Neutrophils % 86 % Lymphocytes % 6 % Monocytes % 5 % Eosinophils % 2 % Basophils % 0 % Neutrophils # 11.0 H (1.3-7.7) k/uL Lymphocytes # 0.8 L (1.0-4.8) k/uL Monocytes # 0.6 (0-1.0) k/uL Eosinophils # 0.3 (0-0.7) k/uL Basophils # 0.0 (0-0.2) k/uL APTT 23.1 (22.0-30.0) sec Sodium 133 L (137-145) mmol/L Potassium 4.1 (3.5-5.1) mmol/L Chloride 102 (98-107) mmol/L Carbon Dioxide 22 (22-30) mmol/L Anion Gap 9 mmol/L BUN 14 (7-17) mg/dL Creatinine 0.75 (0.52-1.04) mg/dL Est GFR (CKD-EPI)AfAm >90 (>60 ml/min/1.73 sqM) Est GFR (CKD-EPI)NonAf 79 (>60 ml/min/1.73 sqM) Glucose 106 H (74-99) mg/dL Plasma Lactic Acid [place] (0.7-2.0) mmol/L Calcium 8.8 (8.4-10.2) mg/dL Total Bilirubin 0.6 (0.2-1.3) mg/dL AST 24 (14-36) U/L ALT 18 (4-34) U/L Alkaline Phosphatase 96 (38-126) U/L Troponin I (0.000-0.034) ng/mL Total Protein 6.5 (6.3-8.2) g/dL Albumin 3.9 (3.5-5.0) g/dL 03/26/21 03/26/21 Range/Units 16:57 16:57 WBC (3.8-10.6) k/uL RBC (3.80-5.40) m/uL Hgb (11.4-16.0) gm/dL Hct (34.0-46.0) % MCV (80.0-100.0) fL MCH (25.0-35.0) pg MCHC (31.0-37.0) g/dL RDW (11.5-15.5) % Plt Count (150-450) k/uL MPV Neutrophils % % Lymphocytes % % Monocytes % % Eosinophils % % Basophils % % Neutrophils # (1.3-7.7) k/uL Lymphocytes # (1.0-4.8) k/uL Monocytes # (0-1.0) k/uL Eosinophils # (0-0.7) k/uL Basophils # (0-0.2) k/uL APTT (22.0-30.0) sec Sodium (137-145) mmol/L Potassium (3.5-5.1) mmol/L Chloride (98-107) mmol/L Carbon Dioxide (22-30) mmol/L Anion Gap mmol/L BUN (7-17) mg/dL Creatinine (0.52-1.04) mg/dL Est GFR (CKD-EPI)AfAm (>60 ml/min/1.73 sqM) Est GFR (CKD-EPI)NonAf (>60 ml/min/1.73 sqM) Glucose (74-99) mg/dL Plasma Lactic Acid [place] 0.8 (0.7-2.0) mmol/L Calcium (8.4-10.2) mg/dL Total Bilirubin (0.2-1.3) mg/dL AST (14-36) U/L ALT (4-34) U/L Alkaline Phosphatase (38-126) U/L Troponin I <0.012 (0.000-0.034) ng/mL Total Protein (6.3-8.2) g/dL Albumin (3.5-5.0) g/dL - Radiology Data Radiology results: report reviewed, image reviewed CT of the abdomen and pelvis: Diffuse left-sided colonic wall thickening with surrounding inflammatory changes. Findings may relate to colitis. malignancy cannot be excluded recommend colonoscopy. No bowel obstruction or free fluid or air. Disposition Clinical Impression: Hematochezia Disposition: ADMITTED IP TO THIS [facility] Condition: Stable Is patient prescribed a controlled substance at d/c from ED?: No Referrals: Quita Ly DO [Primary Care Provider] - 1-2 days Time of Disposition: 18:37
[2021-03-26] MEDS ORDERED: MORPHINE SULFATE 4 MG/ML SYRINGE IV PRN (18:31)
[2021-03-26] MEDS ORDERED: ONDANSETRON 4 MG/2 ML VIAL IVP PRN (18:31)
[2021-03-26] MEDS ORDERED: NALOXONE 0.4 MG/ML 1 ML VIAL IV PRN (18:31)
[2021-03-26] MEDS ORDERED: metroNIDAZOLE-NS PMX 500 MG in SALINE 1 100ML.BAG IVPB STA (18:31)
[2021-03-26] MEDS ORDERED: LEVOFLOXACIN 750MG-D5W PMX 750 MG in DEXTROSE/WATER 1 150ML.BAG IVPB STA (18:31)
[2021-03-26] MEDS: SODIUM CHLORIDE 0.9% 1,000 ML IV SCH (19:00)
[2021-03-27] MEDS: SODIUM CHLORIDE 0.9% 1,000 ML IV SCH ×3 (05:19→18:06)
--- NOTE | 2021-03-27 10:35 | CONS ---
CONSULTATION DATE OF CONSULTATION: March 27, 2021. REASON FOR CONSULTATION: Abdominal pain and bloody diarrhea of one day duration. HISTORY OF PRESENT ILLNESS: The patient is a 75-year-old pleasant white female came to the emergency room complaining of severe lower abdominal pain that started on evening. The pain was mostly in the left lower quadrant area and suprapubic area and subsequently had multiple episodes of loose watery bowel movements followed by bright red blood per rectum. She had at least 10 or 15 of these episodes starting from night until yesterday night. Came to the emergency room. She had a CT of the abdomen and pelvis done in the ER that showed thickening of the left colon with surrounding inflammatory changes consistent with acute colitis and possibility of malignancy could not be excluded. The patient was started on empiric antibiotics in the ER. This morning she is feeling better. The abdominal pain has significantly improved. She had only 1 bloody bowel movement this morning. She did not have any through the night. She never had these symptoms in the past. Her last colonoscopy was about 3 and half years ago and according to the patient it was within normal limits. She denies any antibiotic use. No recent travel history. No fever, chills, or night sweats. PAST MEDICAL HISTORY: Significant for hypertension, hyperlipidemia, anxiety, coronary artery disease and [place] in the past, chronic back pain. PAST SURGICAL HISTORY: Appendectomy, back surgery, cardiac catheterization, hysterectomy, joint replacement, pacemaker implantation, tonsillectomy, tubal ligation, bilateral cataract surgeries and corneal transplant. MEDICATIONS: Medications at home include: ProAir, vitamin C, Lipitor, Flexeril, Zyrtec, diltiazem, Vibramycin, Zetia, Neurontin, Synthroid, Singulair, Nitrostat, omeprazole, vitamin B. ALLERGIES: ROCEPHIN, DEMEROL, SULFA, VANCOMYCIN. SOCIAL HISTORY: No smoking. No alcohol use. FAMILY HISTORY: Unremarkable. REVIEW OF SYSTEMS: CARDIOPULMONARY: No chest pain or shortness of breath. GENITOURINARY: No dysuria, no hematuria. MUSCULOSKELETAL unremarkable. SKIN unremarkable. ENDOCRINE unremarkable. PSYCHIATRIC unremarkable. NEUROLOGY: Unremarkable. ENT/VISION: Unremarkable. CONSTITUTIONAL: No recent weight loss. No fever, chills, night sweats. PHYSICAL EXAMINATION: She appears comfortable. No apparent distress Vital signs are stable. Blood pressure is 125/73, pulse rate 81, temperature 98. HEENT examination unremarkable. Conjunctivae pink. Sclerae anicteric. Oral cavity no lesions. NECK: No JVD or lymph node enlargement. CHEST was clear auscultation. HEART: Regular rate and rhythm. ABDOMEN: Soft. Mild tenderness in the left lower quadrant area. Rest of the abdomen benign. EXTREMITIES: No pedal edema. SKIN no rashes. NEURO: She is alert and oriented x3. No focal deficits. LABS: Labs done at the time of admission to the hospital: WBC 12.8, hemoglobin 13.8, platelets normal. Basic metabolic panel is within normal limits. IMPRESSION: 1. This is a lady who presented to the hospital with acute onset of lower abdominal pain followed by multiple episodes of loose bowel movements followed by rectal bleeding for the last [address] of the abdomen showed thickening of the left colon consistent with acute colitis. Possibility of neoplasm could not be excluded. Last colonoscopy 3 and half years ago was within normal limits. Most likely we are dealing with acute ischemic colitis versus infectious colitis. 2. History of hypertension. 3. History of hyperlipidemia. 4. History of coronary artery disease status post myocardial infarction in the past. RECOMMENDATIONS: 1. Start on a clear liquid diet. 2. Continue with empiric antibiotics with Flagyl and Levaquin. 3. Obtain stool cultures. 4. If the patient is doing well, she can be discharged home in the next 24 to 48 hours. 5. We will plan a colonoscopy in 3-4 weeks following discharge from the hospital. Thank you for this consultation. We will follow with you closely. MMODL / IJN: [id number] /
[2021-03-27] MEDS: LEVOFLOXACIN 500MG-D5W PMX 500 MG in DEXTROSE/WATER 1 100ML.BAG IVPB SCH (11:23)
[2021-03-27] MEDS: metroNIDAZOLE-NS PMX 500 MG in SALINE 1 100ML.BAG IVPB SCH ×2 (12:43→21:02)
[2021-03-27] MEDS ORDERED: CYCLOBENZAPRINE 10 MG TAB PO PRN (17:16)
[2021-03-27] MEDS ORDERED: DOCUSATE 100 MG CAP PO PRN (17:16)
[2021-03-27] MEDS ORDERED: ALBUTEROL NEBULIZED 2.5 MG/3 ML INHALATION PRN (17:16)
[2021-03-27] MEDS: PANTOPRAZOLE 40 MG TABLET PO SCH (18:06)
[2021-03-27] MEDS: SYMBICORT 160-4.5 MCG INHALER INHALATION SCH (19:55)
[2021-03-27] MEDS: EZETIMIBE 10 MG TAB PO SCH (21:02)
[2021-03-27] MEDS: LOSARTAN 25 MG TAB PO SCH (21:02)
[2021-03-27] MEDS: ATORVASTATIN 40 MG TAB PO SCH (21:02)
[2021-03-27] MEDS: MONTELUKAST 10 MG TAB PO SCH (21:02)
[2021-03-27] MEDS: GABAPENTIN 300 MG CAP PO SCH (21:03)
--- NOTE | 2021-03-27 23:34 | P.HPIM ---
History of Present Illness H&P Date: 03/27/21 Chief Complaint: Abdominal pain. Patient is a 75-year-old female with a known history of coronary artery disease, history MD, hypertension and other medical problems presents to ER with the complaints of lower abdominal pain with bright red blood per rectum started 1 day prior to admission. Patient is also having left lower quadrant abdominal pain and had multiple episodes of watery bowel movements followed by bright red blood until yesterday. Patient presents to ER on night. No complaints of fever or chills. No nausea or vomiting. No prior history of inflammatory bowel disease. No chest pain or shortness of breath. CT of the abdomen pelvis in the ER showed diffuse left-sided colonic wall thickening with surrounding inflammatory changes. Findings may relate to colitis. Malignancy cannot be excluded. Recommend colonoscopy correlation. Laboratory data showed WBC 12.8 hemoglobin 13.8 and platelets 256 Sodium 133 potassium 4.1 chloride 102 BUN 14 and creatinine 0.75 and troponin 0 0.012 Review of Systems Constitutional: Patient denies any fever or chills . No generalized weakness or weight loss. Abdomen: Left-sided abdominal pain with diarrhea and bloody bowel movement. Cardiovascular: Patient denies any chest pain or short of breath no palpitations. Respiratory: patient denied any cough or sputum production. No shortness of breath Neurologic: Patient denied any numbness or tingling headache. Musculoskeletal: Patient denies any complaints of joint swelling or deformity. Skin: Negative Psychiatric: Negative Endocrine: No heat or cold intolerance. No recent weight gain. Genitourinary: No dysuria or hematuria. All other 14 point ROS negative except the above Past Medical History Past Medical History: Coronary Artery Disease (CAD), Hypertension, Myocardial Infarction ([place]) Additional Past Medical History / Comment(s): sciatica Last Myocardial Infarction Date:: 1999 History of Any Multi-Drug Resistant Organisms: None Reported Past Surgical History: Appendectomy, Back Surgery, Heart Catheterization, Hysterectomy, Joint Replacement, Orthopedic Surgery, Pacemaker, Tonsillectomy, Tubal Ligation Additional Past Surgical History / Comment(s): carpal tunnel, cataracts, cornea transplant, Left knee replacements x 2 Type of Cardiac Device: Unknown Device Placement Date:: 2011 Past Psychological History: No Psychological Hx Reported Smoking Status: Never smoker Past Alcohol Use History: None Reported Past Drug Use History: None Reported Medications and Allergies Home Medications Medication Instructions Recorded Confirmed Type Albuterol Sulfate [Proair Hfa] 2 puff INHALATION RT-QID PRN 03/26/21 03/26/21 History Ascorbic Acid [Vitamin C] 500 mg PO BID 03/26/21 03/26/21 History Atorvastatin Calcium [Lipitor] 40 mg PO HS 03/26/21 03/26/21 History Calcium 600-Vit D3 1 tab PO BID 03/26/21 03/26/21 History Candesartan Cilexetil 4 mg PO HS 03/26/21 03/26/21 History Cetirizine HCl [Zyrtec] 10 mg PO DAILY 03/26/21 03/26/21 History Curcumin 750mg 1 tab PO DAILY 03/26/21 03/26/21 History Cyclobenzaprine [Flexeril] 10 mg PO TID PRN 03/26/21 03/26/21 History Denosumab [Prolia] 1 dose SQ Q180D 03/26/21 03/26/21 History Diltiazem HCl [Diltiazem HCl 24Hr 360 mg PO DAILY 03/26/21 03/26/21 History ER ([place])] Docusate [Colace] 100 mg PO DAILY PRN 03/26/21 03/26/21 History Doxycycline Hyclate [Vibramycin] 100 mg PO BID 03/26/21 03/26/21 History Ezetimibe [Zetia] 10 mg PO HS 03/26/21 03/26/21 History Fluticasone Nasal [place] [Flonase 2 spr EA NOSTRIL BID PRN 03/26/21 03/26/21 History Nasal [place]] Gabapentin [Neurontin] 300 mg PO HS 03/26/21 03/26/21 History Ketotifen Fumarate [Alaway] 1 drop BOTH EYES DAILY 03/26/21 03/26/21 History L.acidoph,Paracasei, B.lactis 1 cap PO DAILY 03/26/21 03/26/21 History [Probiotic] Levothyroxine Sodium [Synthroid] 25 mcg PO DAILY 03/26/21 03/26/21 History Mometasone/Formoterol [Dulera 200 2 puff PO RT-BID 03/26/21 03/26/21 History Mcg-5 Mcg Inhaler] Montelukast Sodium [Singulair] 10 mg PO HS 03/26/21 03/26/21 History Nitroglycerin Sl Tabs [Nitrostat] 0.4 mg SUBLINGUAL Q5M PRN 03/26/21 03/26/21 History Omeprazole 40 mg PO BID 03/26/21 03/26/21 History Tiotropium 2.5 Mcg/Puff [Spiriva 2 puff INHALATION RT-DAILY 03/26/21 03/26/21 History Respimat 2.5 Mcg] Ubidecarenone [Co Q-10] 100 mg PO DAILY 03/26/21 03/26/21 History Vitamin B Complex 1 cap PO DAILY 03/26/21 03/26/21 History Allergies Allergy/AdvReac Type Severity Reaction Status Date / Time ceftriaxone [From Rocephin] Allergy Rash/Hives Verified 03/26/21 17:01 epinephrine Allergy Rash/Hives Verified 03/26/21 17:01 meperidine [From Demerol] Allergy Rash/Hives Verified 03/26/21 17:01 Sulfa (Sulfonamide Allergy Rash/Hives Verified 03/26/21 17:01 Antibiotics) vancomycin Allergy Rash/Hives Verified 03/26/21 17:01 Physical Exam Vitals: Vital Signs Temp Pulse Pulse Resp BP BP Pulse Ox 03/27/21 07:56 81 16 03/27/21 07:00 98.3 F 81 16 125/73 95 03/27/21 01:36 98.2 F 89 16 119/72 97 03/26/21 20:00 98.5 F 94 16 119/65 96 03/26/21 17:49 81 18 153/84 95 03/26/21 16:22 98.0 F 115 H 20 128/81 98 Intake and Output 03/26/21 03/27/21 03/27/21 22:59 06:59 14:59 Intake Total 1040 Balance 1040 Intake: Intake, IV Titration 1040 Amount Sodium Chloride 0.9% 1, 1040 000 ml @ 130 mls/hr IV . Q7H42M [facility] Rx#:[id number] Other: Voiding Method Toilet Toilet # Voids 1 Weight 69.853 kg PHYSICAL EXAMINATION: Patient is lying in the bed comfortably, no acute distress, awake alert and oriented.. HEENT: Normocephalic. Neck is supple. Pupils reactive. Nostrils clear. Oral cavity is moist. Neck reveals no JVD, carotid bruits, or thyromegaly. CHEST EXAMINATION: Trachea is central. Symmetrical expansion. Lung [place] clear to auscultation and percussion. CARDIAC: Normal S1, S2 with no gallops. No murmurs ABDOMEN: Soft. Bowel sounds normal. No organomegaly. No abdominal bruits. Extremities: reveal no edema. No clubbing or cyanosis Neurologically awake, alert, oriented x3 with well-coordinated movements. No focal deficits noted Skin: No rash or skin lesions. Psychiatric: Coperative. Nonsuicidal Musculoskeletal: No joint swelling or deformity. Normal range of motion. Results CBC & Chem 7: 03/26/21 16:57 03/26/21 16:57 Labs: Abnormal Lab Results - Last 24 Hours (Table) 03/26/21 03/26/21 Range/Units 16:57 16:57 WBC 12.8 H (3.8-10.6) k/uL Neutrophils # 11.0 H (1.3-7.7) k/uL Lymphocytes # 0.8 L (1.0-4.8) k/uL Sodium 133 L (137-145) mmol/L Glucose 106 H (74-99) mg/dL Thrombosis Risk Factor Assmnt - DVT/VTE Prophylaxis DVT/VTE Prophylaxis: Mechanical Prophylaxis ordered - Choose All That Apply Any of the Below Risk Factors Present?: Yes Each Factor Represents 1 point: Acute MD Each Risk Factor Represents 2 Points: Age 61-74 years Thrombosis Risk Factor Assessment Total Risk Factor Score: 3 Thrombosis Risk Factor Assessment Level: Moderate Risk Assessment and Plan Assessment: Acute left-sided colitis Possible infectious. Malignancy cannot be excluded. Left lower quadrant abdominal pain secondary to colitis with bloody bowel movement. Hypertension Coronary disease history of MD. No PCI. Hyperlipidemia DVT prophylaxis SCDs Plan: Patient will be continued on IV hydration and antibiotics in the form of Levaquin and Flagyl. Follow-up culture reports. Stool studies will be sent. Gastroenterology was consulted. Continue with conservative management and follow-up closely.
[2021-03-28] MEDS: metroNIDAZOLE-NS PMX 500 MG in SALINE 1 100ML.BAG IVPB SCH ×3 (03:20→20:20)
[2021-03-28] MEDS: SODIUM CHLORIDE 0.9% 1,000 ML IV SCH ×4 (03:26→22:12)
[2021-03-28] MEDS: LEVOTHYROXINE 25 MCG TAB PO SCH (05:54)
[2021-03-28] MEDS: SYMBICORT 160-4.5 MCG INHALER INHALATION SCH ×2 (07:14→20:03)
[2021-03-28] MEDS: PANTOPRAZOLE 40 MG TABLET PO SCH ×2 (08:40→18:01)
[2021-03-28] MEDS: DILTIAZEM CD 180 MG CAP.ER.24H PO SCH (08:41)
[2021-03-28] MEDS: LACTOBACILLUS ACIDOPH & BULGAR 1 EACH PACKET PO SCH (08:41)
[2021-03-28 10:22] LABS: Basophils # (A) 0.03 X 10*3/uL (0.00-0.10); Basophils % (A) 0.5 %; Eosinophils # (A) 0.21 X 10*3/uL (0.04-0.35); Eosinophils % (A) 3.5 %; HCT 35.5 % (37.2-46.3); HGB 10.9 g/dL (12.0-15.0); Lymphocytes # (A) 0.68 X 10*3/uL (0.90-5.00); Lymphocytes % (A) 11.2 %; MCH 26.7 pg (27.0-32.0); MCHC 30.7 g/dL (32.0-37.0); Mean Platelet Volume 10.4 fL (9.5-12.2); Monocytes # (A) 0.53 X 10*3/uL (0.20-1.00); Monocytes % (A) 8.7 %; Neutrophils # (A) 4.61 X 10*3/uL (1.80-7.70); Neutrophils % (A) 75.8 %; Platelet Count 218 X 10*3/uL (140-440); RBC 4.08 X 10*6/uL (4.10-5.20); RDW 15.9 % (11.5-14.5); WBC 6.08 X 10*3/uL (4.50-10.00)
[2021-03-28 10:54] LABS: African American GFR (CKD) 104.8 (60.0-200.0); Anion Gap 6.1 mmol/L (4.00-12.00); BUN/Creat Ratio 8.33 Ratio (12.00-20.00); Calcium 7.8 mg/dL (8.7-10.3); Carbon Dioxide 24.9 mmol/L (21.6-31.8); Non-African American GFR(CKD) 90.4 (60.0-200.0); Potassium 3.8 mmol/L (3.5-5.5)
[2021-03-28] MEDS: LEVOFLOXACIN 500MG-D5W PMX 500 MG in DEXTROSE/WATER 1 100ML.BAG IVPB SCH (12:06)
--- NOTE | 2021-03-28 12:24 | PN ---
PROGRESS NOTE DATE OF SERVICE: 03/28/2021. HISTORY: Patient is a 75-year-old pleasant white female admitted to the hospital with acute onset of severe lower abdominal pain followed by bloody diarrhea of 2 days duration. She is feeling much better today. She only had 1 bowel movement all day yesterday and 1 this morning which was dark with old blood. Abdominal pain has improved. No nausea no vomiting. PHYSICAL EXAMINATION: GENERAL: She appears comfortable. VITAL SIGNS: Stable, blood pressure 138/76, pulse rate 86, temperature 98.2. HEENT: Examination unremarkable. Conjunctivae pink. Sclerae anicteric. Oral cavity no lesions. NECK: No JVD. No lymph node enlargement. CHEST: Clear to auscultation. HEART: Regular rate and rhythm. ABDOMEN: Soft, bowel sounds are positive. No organomegaly. EXTREMITIES: No pedal edema. SKIN: No rashes. NEUROLOGIC: Alert and oriented x3. No focal deficits. LABS: From today are still pending at the time of this dictation. IMPRESSION: Acute onset of lower abdominal pain followed by bloody diarrhea of 2 days duration. Her symptoms are very consistent with acute ischemic colitis versus infectious colitis. She is clinically doing better, remains on empiric antibiotics with Flagyl and Levaquin. Hemoglobin at presentation was 13.8. Today CBC is still pending. RECOMMENDATIONS: 1. Continue with empiric antibiotics. 2. Advance to a soft diet. 3. Await labs from today. 4. She can be discharged home later today or tomorrow with outpatient colonoscopy in 3- 4 weeks. MMODL / IJN: [id number] /
[2021-03-28] MEDS: LOSARTAN 25 MG TAB PO SCH (20:21)
[2021-03-28] MEDS: MONTELUKAST 10 MG TAB PO SCH (20:21)
[2021-03-28] MEDS: ATORVASTATIN 40 MG TAB PO SCH (20:21)
[2021-03-28] MEDS: GABAPENTIN 300 MG CAP PO SCH (20:21)
[2021-03-28] MEDS: EZETIMIBE 10 MG TAB PO SCH (20:22)
--- NOTE | 2021-03-29 01:20 | P.PN ---
Subjective Progress Note Date: 03/28/21 Principal diagnosis: Acute left-sided colitis Possible infectious. Malignancy cannot be excluded. Patient is a 75-year-old female with a known history of coronary artery disease, history [place], hypertension and other medical problems presents to ER with the complaints of lower abdominal pain with bright red blood per rectum started 1 day prior to admission. Patient is also having left lower quadrant abdominal pain and had multiple episodes of watery bowel movements followed by bright red blood until yesterday. Patient presents to ER on night. No complaints of fever or chills. No nausea or vomiting. No prior history of inflammatory bowel disease. No chest pain or shortness of breath. CT of the abdomen pelvis in the ER showed diffuse left-sided colonic wall thickening with surrounding inflammatory changes. Findings may relate to colitis. Malignancy cannot be excluded. Recommend colonoscopy correlation. Laboratory data showed WBC 12.8 hemoglobin 13.8 and platelets 256 Sodium 133 potassium 4.1 chloride 102 BUN 14 and creatinine 0.75 and troponin 0 0.012 03/28/2021 Patient is resting in the bed comfortably. Did have a brown-colored stool. No bright red blood noted. No complaints of chest pain or shortness breath. No nausea vomiting or abdominal pain. Patient is tolerating oral diet. no diarrhea. Currently being continued on antibiotics with all Levaquin and Flagyl. Laboratory data showed WBC trending down to 6.08 and hemoglobin 10.9 platelets 214, sodium 141 potassium 3.8 and chloride 110 BUN 5 creatinine 0.6 GI is following. Current medications reviewed.. Objective - Vital Signs Vital signs: Vital Signs Temp 98.6 F 03/28/21 20:00 Pulse 83 03/28/21 20:00 Resp 17 03/28/21 20:00 BP 131/74 03/28/21 20:00 Pulse Ox 97 03/28/21 20:00 Intake & Output 03/28/21 03/28/21 03/29/21 06:59 18:59 06:59 Intake Total 200 700 Balance 200 700 Intake: Intake, IV Titration 200 Amount metroNIDAZOLE-NS PMX 500 200 mg In Saline 1 100ml.bag @ 100 mls/hr IVPB Q8H TASHA Rx#:[id number] Oral 700 Other: Voiding Method Toilet Toilet # Voids 1 1 - Exam PHYSICAL EXAMINATION: Patient is lying in the bed comfortably, no acute distress, awake alert and oriented.. HEENT: Normocephalic. Neck is supple. Pupils reactive. Nostrils clear. Oral cavity is moist. Neck reveals no JVD, carotid bruits, or thyromegaly. CHEST EXAMINATION: Trachea is central. Symmetrical expansion. Lung medina clear to auscultation and percussion. CARDIAC: Normal S1, S2 with no gallops. No murmurs ABDOMEN: Soft. Bowel sounds normal. No organomegaly. No abdominal bruits. Extremities: reveal no edema. No clubbing or cyanosis Neurologically awake, alert, oriented x3 with well-coordinated movements. No focal deficits noted Skin: No rash or skin lesions. Psychiatric: Coperative. Nonsuicidal Musculoskeletal: No joint swelling or deformity. Normal range of motion. - Labs CBC & Chem 7: 03/28/21 06:44 03/28/21 06:44 Labs: Abnormal Lab Results - Last 24 Hours (Table) 03/28/21 03/28/21 Range/Units 06:44 06:44 RBC 4.08 L (4.10-5.20) X 10*6/uL Hgb 10.9 L (12.0-15.0) g/dL Hct 35.5 L (37.2-46.3) % MCH 26.7 L (27.0-32.0) pg MCHC 30.7 L (32.0-37.0) g/dL RDW 15.9 H (11.5-14.5) % Lymphocytes # 0.68 L (0.90-5.00) X 10*3/uL Chloride 110 H (96-109) mmol/L BUN 5.0 L (9.0-27.0) mg/dL BUN/Creatinine Ratio 8.33 L (12.00-20.00) Ratio Calcium 7.8 L (8.7-10.3) mg/dL Assessment and Plan Assessment: Acute left-sided colitis Possible infectious. Malignancy cannot be excluded. Left lower quadrant abdominal pain secondary to colitis with bloody bowel movement. Hypertension Coronary disease history of [place]. No PCI. Hyperlipidemia DVT prophylaxis SCDs Plan: Patient will be continued on IV hydration and antibiotics in the form of Levaquin and Flagyl. Follow-up culture reports. . Gastroenterology is on board. Continue with conservative management and follow-up closely.
[2021-03-29] MEDS: metroNIDAZOLE-NS PMX 500 MG in SALINE 1 100ML.BAG IVPB SCH (03:59)
[2021-03-29] MEDS: SODIUM CHLORIDE 0.9% 1,000 ML IV SCH (04:05)
[2021-03-29] MEDS: LEVOTHYROXINE 25 MCG TAB PO SCH (05:46)
[2021-03-29 07:49] VITALS: BP 132/77; PULSE 72; RESP 18; TEMP 98
[2021-03-29] MEDS: SYMBICORT 160-4.5 MCG INHALER INHALATION SCH (08:18)
[2021-03-29] MEDS: DILTIAZEM CD 180 MG CAP.ER.24H PO SCH (08:50)
[2021-03-29] MEDS: EZETIMIBE 10 MG TAB PO SCH (08:50)
[2021-03-29] MEDS: PANTOPRAZOLE 40 MG TABLET PO SCH (08:50)
[2021-03-29] MEDS: LACTOBACILLUS ACIDOPH & BULGAR 1 EACH PACKET PO SCH (08:51)
[2021-03-29 09:04] LABS: Basophils # (A) 0.03 X 10*3/uL (0.00-0.10); Basophils % (A) 0.5 %; Eosinophils # (A) 0.28 X 10*3/uL (0.04-0.35); Eosinophils % (A) 5.1 %; HCT 33.6 % (37.2-46.3); HGB 10.6 g/dL (12.0-15.0); Lymphocytes # (A) 0.74 X 10*3/uL (0.90-5.00); Lymphocytes % (A) 13.5 %; MCHC 31.5 g/dL (32.0-37.0); MCV 85.7 fL (80.0-97.0); Mean Platelet Volume 10.2 fL (9.5-12.2); Neutrophils # (A) 3.79 X 10*3/uL (1.80-7.70); Neutrophils % (A) 69.4 %; Platelet Count 215 X 10*3/uL (140-440); RBC 3.92 X 10*6/uL (4.10-5.20); WBC 5.47 X 10*3/uL (4.50-10.00)
[2021-03-29 09:39] LABS: African American GFR (CKD) 104.8 (60.0-200.0); Calcium 7.8 mg/dL (8.7-10.3); Non-African American GFR(CKD) 90.4 (60.0-200.0); Potassium 3.6 mmol/L (3.5-5.5)
--- NOTE | 2021-03-29 13:52 | P.DS ---
Providers Date of admission: 03/26/21 19:21 Expected date of discharge: 03/29/21 Attending physician: Carleen Case Consults: 03/26/21 18:31 Consult Physician Stat Consulting Provider: Melvina Pena Consult Reason/Comments: gi bleed, colonoscopy Do you want consulting provider notified?: Yes Primary care physician: Quita Ly Hospital Course: Final diagnosis Acute left-sided colitis Possible infectious. Malignancy cannot be excluded. Left lower quadrant abdominal pain secondary to colitis with bloody bowel movement. Hypertension Coronary disease history of [place]. No PCI. Hyperlipidemia DVT prophylaxis SCDs Discharge Disposition Patient is being discharged in a stable condition with gaurded prognosis to home. Patient will follow up with Dr. Dawson Pena in 3 to 4 weeks to schedule colonoscopy as well as PCP. Total time take is greater than 35 minutes. Hospital Course This is a pleasant 75-year-old female who presented to the emergency center on 03/26/2021 with complaints of left lower quadrant abdominal pain with multiple episodes of watery bowel movements followed by bright red blood that ended on March 26. Patient denies nausea vomiting, no prior history of inflammatory bowel disease. Patient denies chest pain denies shortness of breath. Patient has a known history of coronary artery disease, history of [place] hypertension and other medical problems. CT of the abdomen and pelvis in the ER showed a diffuse left-sided colonic wall thickening and surrounding inflammatory changes. A colonoscopy was recommended to correlate. Today 03/28 Patient is evaluated bedside comfortable but does Report of mild left lower abdominal pain much improved since admission. Patient has denied any diarrhea, is passing gas and tolerating oral diet. Patient was evaluated in consultation by Dr. Pena for GI services and was ultimately placed on an antibiotic therapy with Levaquin and Flagyl for an acute ischemic colitis versus infectious colitis. Hemoglobin is stable today at 10.6, CBC will be repeated outpatient. Patient will continue antibiotics for 7 days, patient can advance diet as tolerated and will follow up with Dr. Pena to schedule a colonoscopy in the next 3-4 weeks. Patient is evaluated today on 03/29 at bedside no complaints of nausea vomiting diarrhea, no complaints of chest pain or shortness of breath. Patient states she is feeling well and ready to be discharged home and is aware of her follow- up and diet recommendations. Vital signs are stable patient remains afebrile, and on room air. Ultimately patient is discharged on a course of antiemetic therapy and will follow up with Dr. Pena. Please Refer to medication reconciliation for current medications. Patient Condition at Discharge: Stable Plan - Discharge Summary Discharge Rx Participant: No New Discharge Prescriptions: New metroNIDAZOLE [Flagyl] 500 mg PO Q8H 7 Days #21 tab Levofloxacin [Levaquin] 500 mg PO DAILY 7 Days #7 tab Continue Vitamin B Complex 1 cap PO DAILY Calcium 600-Vit D3 1 tab PO BID Ascorbic Acid [Vitamin C] 500 mg PO BID Doxycycline Hyclate [Vibramycin] 100 mg PO BID Omeprazole 40 mg PO BID Levothyroxine Sodium [Synthroid] 25 mcg PO DAILY Cyclobenzaprine [Flexeril] 10 mg PO TID PRN PRN Reason: Muscle Pain Atorvastatin Calcium [Lipitor] 40 mg PO HS Tiotropium 2.5 Mcg/Puff [Spiriva Respimat 2.5 Mcg] 2 puff INHALATION RT-DAILY Ketotifen Fumarate [Alaway] 1 drop BOTH EYES DAILY Ezetimibe [Zetia] 10 mg PO HS Fluticasone Nasal [place] [Flonase Nasal [place]] 2 spr EA NOSTRIL BID PRN PRN Reason: Allergy Symptoms Cetirizine HCl [Zyrtec] 10 mg PO DAILY Curcumin 750mg 1 tab PO DAILY Docusate [Colace] 100 mg PO DAILY PRN PRN Reason: Constipation Ubidecarenone [Co Q-10] 100 mg PO DAILY L.acidoph,Paracasei, B.lactis [Probiotic] 1 cap PO DAILY Denosumab [Prolia] 1 dose SQ Q180D Gabapentin [Neurontin] 300 mg PO HS Diltiazem HCl [Diltiazem HCl 24Hr ER (LA)] 360 mg PO DAILY Candesartan Cilexetil 4 mg PO HS Nitroglycerin Sl Tabs [Nitrostat] 0.4 mg SUBLINGUAL Q5M PRN PRN Reason: Chest Pain Mometasone/Formoterol [Dulera 200 Mcg-5 Mcg Inhaler] 2 puff PO RT-BID Montelukast Sodium [Singulair] 10 mg PO HS Albuterol Sulfate [Proair Hfa] 2 puff INHALATION RT-QID PRN PRN Reason: Shortness Of Breath Discharge Medication List Albuterol Sulfate [Proair Hfa] 2 puff INHALATION RT-QID PRN 03/26/21 [History] Ascorbic Acid [Vitamin C] 500 mg PO BID 03/26/21 [History] Atorvastatin Calcium [Lipitor] 40 mg PO HS 03/26/21 [History] Calcium 600-Vit D3 1 tab PO BID 03/26/21 [History] Candesartan Cilexetil 4 mg PO HS 03/26/21 [History] Cetirizine HCl [Zyrtec] 10 mg PO DAILY 03/26/21 [History] Curcumin 750mg 1 tab PO DAILY 03/26/21 [History] Cyclobenzaprine [Flexeril] 10 mg PO TID PRN 03/26/21 [History] Denosumab [Prolia] 1 dose SQ Q180D 03/26/21 [History] Diltiazem HCl [Diltiazem HCl 24Hr ER (LA)] 360 mg PO DAILY 03/26/21 [History] Docusate [Colace] 100 mg PO DAILY PRN 03/26/21 [History] Doxycycline Hyclate [Vibramycin] 100 mg PO BID 03/26/21 [History] Ezetimibe [Zetia] 10 mg PO HS 03/26/21 [History] Fluticasone Nasal [place] [Flonase Nasal [place]] 2 spr EA NOSTRIL BID PRN 03/26/21 [History] Gabapentin [Neurontin] 300 mg PO HS 03/26/21 [History] Ketotifen Fumarate [Alaway] 1 drop BOTH EYES DAILY 03/26/21 [History] L.acidoph,Paracasei, B.lactis [Probiotic] 1 cap PO DAILY 03/26/21 [History] Levothyroxine Sodium [Synthroid] 25 mcg PO DAILY 03/26/21 [History] Mometasone/Formoterol [Dulera 200 Mcg-5 Mcg Inhaler] 2 puff PO RT-BID 03/26/21 [History] Montelukast Sodium [Singulair] 10 mg PO HS 03/26/21 [History] Nitroglycerin Sl Tabs [Nitrostat] 0.4 mg SUBLINGUAL Q5M PRN 03/26/21 [History] Omeprazole 40 mg PO BID 03/26/21 [History] Tiotropium 2.5 Mcg/Puff [Spiriva Respimat 2.5 Mcg] 2 puff INHALATION RT-DAILY 03/26/21 [History] Ubidecarenone [Co Q-10] 100 mg PO DAILY 03/26/21 [History] Vitamin B Complex 1 cap PO DAILY 03/26/21 [History] Levofloxacin [Levaquin] 500 mg PO DAILY 7 Days #7 tab 03/29/21 [Rx] metroNIDAZOLE [Flagyl] 500 mg PO Q8H 7 Days #21 tab 03/29/21 [Rx] Follow up Appointment(s)/Referral(s): Melvina Pena MD [STAFF PHYSICIAN] - 04/20/21 4:00 pm (Please show up @ 3:30pm for paperwork.) Quita Ly DO [Primary Care Provider] - 1-2 days Ambulatory/Diagnostic Orders: Complete Blood Count w/diff [LAB.AMB] Time Frame: 3 Days, Location: None Selected Patient Instructions/Handouts: Infectious Colitis (GEN) Activity/Diet/Wound Care/Special Instructions: Activity Limited until follow-up Follow-up with GI outpatient in 3-4 weeks for possible colonoscopy Continue with antibiotics for 1 week Continue current diet and slowly advance as tolerated Discharge Disposition: HOME SELF-CARE
[2021-03-29] MEDS ORDERED: metroNIDAZOLE 500 MG TAB PO SCH (20:00)
== END 2021-03-29 12:17 | disposition home or self-care (01) ==
LOC: EC 16:21 → 6NMEDSUR 19:21
PROVIDERS: ADMIT Hospitalist; ATTEND Hospitalist
DX: K51.50 Left sided colitis without complications (principal); I10 Essential (primary) hypertension; I25.2 Old myocardial infarction; E78.5 Hyperlipidemia, unspecified; I25.10 Atherosclerotic heart disease of native coronary artery without angina pectoris; F41.9 Anxiety disorder, unspecified; G89.29 Other chronic pain; M54.9 Dorsalgia, unspecified; M54.30 Sciatica, unspecified side; Z79.51 Long term (current) use of inhaled steroids; Z79.890 Hormone replacement therapy; Z79.899 Other long term (current) drug therapy; Z88.2 Allergy status to sulfonamides; Z88.1 Allergy status to other antibiotic agents; Z88.5 Allergy status to narcotic agent; Z90.710 Acquired absence of both cervix and uterus; Z96.1 Presence of intraocular lens; Z98.41 Cataract extraction status, right eye; Z98.42 Cataract extraction status, left eye; Z94.7 Corneal transplant status; Z90.49 Acquired absence of other specified parts of digestive tract; Z87.39 Personal history of other diseases of the musculoskeletal system and connective tissue; Z95.0 Presence of cardiac pacemaker; Z88.8 Allergy status to other drugs, medicaments and biological substances; Z79.2 Long term (current) use of antibiotics
CPT/HCPCS: 96361 ×4; 96366 ×3; 96367; 96365; 96375; 99285; 36415; 80053; 80048 ×2; 83605; 84484; 85025 ×3; 85730; 74177; G0378 ×4; J2270; J2405; J1956 ×3; C9113; Q9967; 96368

== ENCOUNTER → 2021-06-22 | Outpatient (CLI) | payer MEDICARE ==
--- NOTE | 2021-06-22 09:27 | CT ---
EXAMINATION TYPE: CT chest wo con DATE OF EXAM: 06/22/2021 COMPARISON: 07/13/2020 HISTORY: 75-year-old female R91.8 Abnormal findings of lung, R42 Dizziness/Giddiness TECHNIQUE: Contiguous axial scanning of the chest without IV contrast. Coronal and sagittal reconstru ctions performed. CT DLP: 172.50 mGycm Automated exposure control for dose reduction was used. FINDINGS: Left anterior chest wall pacemaker generator with right atrial and right ventricular leads. Heart upper limits of normal in size without pericardial effusion. Proximal LAD coronary artery calci fications are noted. Ectatic ascending aorta 3.7 cm. Mild atherosclerotic arch calcifications. Conventional arch vessel br anching anatomy. Calcified left hilar lymph nodes compatible with prior granulomatous disease. Otherwise, no thoracic lymphadenopathy by CT size criteria. The previous 6 mm groundglass density at the periphery of the left base has resolved. There is some m inimal strandy atelectasis or scarring in the inferior lingula. No consolidation or pleural effusion. There is a small hiatal hernia. Hilar splenule. Bones: No osseous destructive process. IMPRESSION: 1. EVIDENCE OF PRIOR GRANULOMATOUS DISEASE WITH CALCIFIED LEFT HILAR LYMPH NODES. 2. THE PREVIOUS 6 MM GROUNDGLASS FOCUS HAS RESOLVED. NO ACUTE PULMONARY PROCESS. 3. SMALL HIATAL HERNIA.
== END | disposition home or self-care (01) ==
LOC: RADCTMAIN 07:33
PROVIDERS: ATTEND Family Medicine
DX: J84.10 Pulmonary fibrosis, unspecified (principal); K44.9 Diaphragmatic hernia without obstruction or gangrene
CPT/HCPCS: 71250

== ENCOUNTER → 2021-06-29 | Outpatient (CLI) | payer MEDICARE ==
--- NOTE | 2021-06-29 09:05 | CT ---
EXAMINATION TYPE: CT sinus wo con DATE OF EXAM: 06/29/2021 COMPARISON: NONE HISTORY: Chronic sinusitis per order. Headaches, dizziness, and double vision for years per patient. CT DLP: 643.10 mGycm. Automated Exposure Control for Dose Reduction was Utilized. TECHNIQUE: CT scan of the sinuses is performed without contrast, axial images are obtained, coronal r eformatted images are also reviewed. FINDINGS: The paranasal sinuses including the right frontal, ethmoid, sphenoid, and maxillary sinuse s bilaterally are well-aerated without abnormal opacification. There is hypoplastic or nondeformed le ft frontal sinus The ostiomeatal complex is patent on the left coronal image 21. It is occluded on th e right due to antral mucosal thickening and/or web coronal image 20. Nasal septum slightly deviated to right of midline. Visualized portion of mastoid air cells show no abnormal opacification. Scleral calcification right g lobe incidentally noted. Visualized portion of brain parenchyma unremarkable. IMPRESSION: No acute sinusitis currently.
== END | disposition home or self-care (01) ==
LOC: RADCTMAIN 07:04
PROVIDERS: ATTEND Otolaryngology
DX: J32.9 Chronic sinusitis, unspecified (principal); R51.9 Headache, unspecified; R42 Dizziness and giddiness
CPT/HCPCS: 70486

== ENCOUNTER → 2021-07-16 | Outpatient (CLI) | payer MEDICARE ==
--- NOTE | 2021-07-16 11:50 | US ---
EXAMINATION TYPE: US carotid duplex BILAT DATE OF EXAM: 07/16/2021 COMPARISON: NONE CLINICAL HISTORY: 75-year-old female R42 DIZZINESS AND GIDDINESS. TECHNIQUE: Carotid duplex ultrasound examination. Indirect Doppler criteria was utilized. FINDINGS: EXAM MEASUREMENTS: RIGHT: Peak Systolic Velocity (PSV) cm/sec ----- Right CCA: 74.0 ----- Right ICA: 133.5 ----- Right ECA: 89.3 ICA/CCA ratio: 1.8 RIGHT: End Diastole cm/sec ----- Right CCA: 20.3 ----- Right ICA: 40.5 ----- Right ECA: 13.1 LEFT: Peak Systolic Velocity (PSV) cm/sec ----- Left CCA: 77.1 ----- Left ICA: 145.4 ----- Left ECA: 72.9 ICA/CCA ratio: 1.9 LEFT: End Diastole cm/sec ----- Left CCA: 22.8 ----- Left ICA: 38.8 ----- Left ECA: 13.1 VERTEBRALS (direction of flow): Right Vertebral: Antegrade Left Vertebral: Antegrade Rhythm: Normal Spouting Installer notes: Elevated velocities: right prox CCA, right mid ICA and left mid ICA IMPRESSION: Slightly elevated peak systolic velocities bilateral internal carotid arteries. Findings may be on th e basis of turbulence versus a moderate, 50-69% stenosis. Criteria for Assigning % of Stenosis / Diameter reduction (Estimation based on the indirect measurements of the internal carotid artery velocities (ICA PSV). 1. Normal (no stenosis)=ICA PSV < 125 cm/s: ratio < 2.0: ICA EDV<40 cm/s. 2. Less than 50% stenosis=ICA PSV < 125 cm/s: ratio < 2.0: ICA EDV<40 cm/s. 3. 50 to 69% stenosis=ICA PSV of 125 to 230 cm/s: ration 2.0 ? 4.0: ICA EDV 40-100 cm/s. 4. Greater than 70% stenosis to near occlusion= ICA PSV > 230 cm/s: ratio > 4.0: ICA EDV > 100 cm/s. 5. Near occlusion= ICA PSV velocities may be low or undetectable: variable ratio and ICA EDV. 6. Total occlusion=unable to detect flow.
== END | disposition home or self-care (01) ==
LOC: RADUSWWP 10:50
PROVIDERS: ATTEND Family Medicine
DX: I77.89 Other specified disorders of arteries and arterioles (principal)
CPT/HCPCS: 93880

== ENCOUNTER → 2021-09-08 | Outpatient (CLI) | payer MEDICARE ==
[2021-09-08 14:42] LABS: Basophils # (A) 0.03 X 10*3/uL (0.00-0.10); Basophils % (A) 0.4 %; Eosinophils # (A) 0.21 X 10*3/uL (0.04-0.35); Eosinophils % (A) 2.7 %; HCT 36.4 % (37.2-46.3); HGB 10.9 g/dL (12.0-15.0); Lymphocytes # (A) 0.69 X 10*3/uL (0.90-5.00); Lymphocytes % (A) 8.9 %; MCH 25.3 pg (27.0-32.0); MCHC 29.9 g/dL (32.0-37.0); MCV 84.7 fL (80.0-97.0); Mean Platelet Volume 9.8 fL (9.5-12.2); Monocytes # (A) 0.71 X 10*3/uL (0.20-1.00); Monocytes % (A) 9.2 %; Neutrophils # (A) 6.04 X 10*3/uL (1.80-7.70); Neutrophils % (A) 78.4 %; Platelet Count 326 X 10*3/uL (140-440); RDW 16.2 % (11.5-14.5); WBC 7.71 X 10*3/uL (4.50-10.00)
[2021-09-08 15:28] LABS: African American GFR (CKD) 95.3 (60.0-200.0); Anion Gap 11.9 mmol/L (10.00-18.00); BUN/Creat Ratio 17.63 Ratio (12.00-20.00); Blood Urea Nitrogen 12.8 mg/dL (9.0-27.0); C Reactive Protein 2.8 mg/dL (0.00-0.80); Calcium 8.8 mg/dL (8.7-10.3); Carbon Dioxide 24.5 mmol/L (20.0-27.5); Non-African American GFR(CKD) 82.3 (60.0-200.0); Potassium 4.4 mmol/L (3.5-5.5)
[2021-09-08 17:25] LABS: Erythrocyte Sedimentation Rate 51 mm/Hr (0-30)
== END | disposition home or self-care (01) ==
LOC: LABWHC1 10:30
PROVIDERS: ATTEND Internal Medicine Infectious Disease
DX: B99.9 Unspecified infectious disease (principal); B95.61 Methicillin susceptible Staphylococcus aureus infection as the cause of diseases classified elsewhere
CPT/HCPCS: 36415; 80048; 85025; 85652; 86140

== ENCOUNTER → 2021-09-23 | Outpatient (CLI) | payer MEDICARE ==
--- NOTE | 2021-09-23 11:16 | MM ---
Reason for exam: follow-up at short interval from prior study. Last mammogram was performed 6 months ago. History: Family history of breast cancer in maternal aunt and breast cancer in maternal cousin. Benign excisional biopsy of the left breast, 1970. Took estrogen beginning at age 44. Physical Findings: Nurse did not find any significant physical abnormalities on exam. MG 3D Diag Mammo W/Cad RT CC, MLO, CC with magnification, LM with magnification, and LM view(s) were taken of the right breast. Prior study comparison: March 22, 2021, right breast MG 3d work up w/cad RT. March 18, 2021, bilateral MG 3d screening mammo w/cad. There are scattered fibroglandular densities. Finding: There are typically benign vascular, linear arranged calcifications in the upper outer quadrant, anterior position of the right breast. No new calcifications. No significant changes in finding since March 22, 2021 and March 18, 2021. These results were verbally communicated with the patient and result sheet given to the patient on 09/23/21. ASSESSMENT: Probably benign, BI-RAD 3 RECOMMENDATION: Follow-up diagnostic mammogram of both breasts in 6 months. (with magnification views of the right breast)
== END | disposition home or self-care (01) ==
LOC: RADMAMWWP 10:09
PROVIDERS: ATTEND Family Medicine
DX: R92.1 Mammographic calcification found on diagnostic imaging of breast (principal); Z80.3 Family history of malignant neoplasm of breast
CPT/HCPCS: 77065; G0279; 77061

== ENCOUNTER → 2022-04-04 | Outpatient (CLI) | payer MEDICARE ==
--- NOTE | 2022-04-04 09:48 | MM ---
Reason for Exam: Follow-up at short interval from prior study. Last mammogram was performed 1 year(s) and 1 month(s) ago. Patient History: Menarche at age 16. First Full-Term at age 23. Right ovary removed at age 45. Hysterectomy at age 45. Estrogen, from age 44 until age 57. 1971, Benign Excisional Biopsy on the left side. Maternal cousin had breast cancer, age 55. Maternal aunt had breast cancer, age 60. Maternal cousin had breast cancer, age 56. Maternal cousin had breast cancer, age 57. Risk Values: Tania 5 year model risk: 1.7%. NCI Lifetime model risk: 3.9%. Tissue Density: There are scattered fibroglandular densities. Findings: Analyzed By CAD. There is average density parenchymal tissue covering two thirds of the breast. The pattern appears symmetrical and stable. There are stable appearing calcifications in the anterior right breast. Benign vascular calcifications present bilaterally. No suspicious spiculated or lobular masses, clusters of microcalcifications, architectural distortion, or other secondary signs of malignancy are radiographically apparent. Overall Assessment: Benign, BI-RAD 2 Management: Screening Mammogram of both breasts in 1 year. A clinical breast exam by your physician is recommended on an annual basis and results should be correlated with mammographic findings. This exam should not preclude additional follow-up of suspicious palpable abnormalities. Results were given to the patient verbally at the time of exam. Electronically signed and approved by: Hans Pablo D.O. Radiologis
== END | disposition home or self-care (01) ==
LOC: RADMAMWWP 08:47
PROVIDERS: ATTEND Family Medicine
DX: R92.0 Mammographic microcalcification found on diagnostic imaging of breast (principal)
CPT/HCPCS: 77066; G0279; 77062

== ENCOUNTER → 2022-11-25 | Outpatient (CLI) | payer MEDICARE ==
--- NOTE | 2022-11-25 08:57 | CT ---
EXAMINATION TYPE: CT lumbar spine wo con DATE OF EXAM: 11/25/2022 8:35 AM COMPARISON: CT lumbar spine September 29, 2020 HISTORY: Lumbar pain CT DLP: 396.8 mGycm Automated exposure control for dose reduction was used. Unenhanced CT of the lumbar spine was performed. Bone and soft tissue window settings are submitted as well as coronal and sagittal reconstructions. There are 5 lumbar type vertebra are redemonstrated. Slight scoliotic curvature and coronal images is redemonstrated. There is no slight grade 1 anterolisthesis L4 on L5 on sagittal images. Vertebral yoni dy heights are preserved. There is moderate disc space narrowing with vacuum disc phenomenon and mild to moderate anterior spurring at L2-L3 level redemonstrated. There is efmb-ny-eumslpiw disc space na rrowing at L3-L4 level redemonstrated. There is severe disc space narrowing with endplate sclerosis a t L4-L5 level redemonstrated. Axial images show T12-L1 level to remain within normal limits. Axial images at L1-L2 level show mild broad disc bulge minimally effaces the anterior thecal sac. Pat ent bilateral neural foramina. No significant change from prior. Axial images at L2-L3 level redemonstrate mild to moderate broad-based posterior disc protrusion effa cing the anterior thecal sac and mild facet arthropathy bilaterally. There is mild bilateral anterior inferior neural foraminal narrowing. No significant change from prior. Axial images at L3-L4 level show moderate broad disc bulge effacing the anterior thecal sac and mild- to-moderate facet arthropathy and ligamentum flavum hypertrophy with some effacement of the right gre ater than left posterior lateral thecal sac. There is mild to moderate bilateral anterior inferior ne ural foraminal narrowing. No significant change from prior. Axial images L4-L5 level shows spondylolisthesis with advanced facet arthropathy causing some effacem ent of the right posterolateral thecal sac axial image 45 similar to prior. There is broad-based post erior disc protrusion. There is effacement of the anterior thecal sac. There is moderate to severe ri ght greater than left bilateral neural foraminal narrowing. Findings more prominent from prior. Axial images at L5-S1 level redemonstrate mild facet arthropathy bilaterally. There is central disc p rotrusion. Mild bilateral neural foraminal narrowing is present. No significant change from prior. Fejj-to-yemgxait calcified plaque of the overlying aorta is again seen. IMPRESSION: Multilevel degenerative changes as detailed above. Most prominent findings at L4-L5 level with interval degenerative progression from most recent CT noted.
== END | disposition home or self-care (01) ==
LOC: RADCTMAIN 08:02
PROVIDERS: ATTEND Orthopaedic Surgery Orthopaedic Surgery of the Spine
DX: M47.816 Spondylosis without myelopathy or radiculopathy, lumbar region (principal); M43.16 Spondylolisthesis, lumbar region; E66.3 Overweight; M41.86 Other forms of scoliosis, lumbar region
CPT/HCPCS: 72131

== ENCOUNTER 2022-12-13 06:46 | Day surgery (SDC) | payer MEDICARE ==
[2022-12-08 10:49] VITALS: BMI 25.0
[~2022-12-13 06:46] MED LIST: LACTATED RINGERS 1,000 ML IV SCH; LIDOCAINE 1% (10MG/ML) FOR IV START INTRADERMA PRN
[2022-12-13 07:14] VITALS: TEMP 98.1
[2022-12-13] MEDS ORDERED: LIDOCAINE 2% INJ 20 MG/ML (2 ML VIAL) ONE (07:56)
[2022-12-13] MEDS ORDERED: PROPOFOL 10 MG/ML 20 ML VIAL IV ONE (07:56)
--- NOTE | 2022-12-13 08:20 | P.PCN ---
Date of Procedure: 12/13/22 Procedure(s) Performed: Brief history: Patient is a pleasant 77-year-old white female scheduled for an elective upper endoscopy as well as colonoscopy as a part of evaluation of intermittent dysphagia to solids and prior history of colon polyps Procedure performed: Esophagogastroduodenoscopy with biopsy and balloon dilation Colonoscopy Preoperative diagnosis: Intermittent dysphagia to solids History of colon polyps Anesthesia: MAC Procedure: After informed consent was obtained from the patient was brought into the endoscopy unit and IV sedation was administered by anesthesia under continuous monitoring. Initially upper endoscopy was done. The Olympus GF 160 video endoscope was inserted inserted into the mouth and esophagus intubated without any difficulty and was gradually advanced into the stomach and duodenum and carefully examined. The bulb and second part of the duodenum appeared normal. The scope was then withdrawn into the stomach adequately insufflated with air and upon careful examination the antrum and body, cardia and fundus appeared normal. Small gastric polyps noted which were biopsied. The scope was then withdrawn into the esophagus. I hernia noted. The GE junction was located at 36 cm to the incisors. There was a mild patent distal esophageal Schatzki's ring identified that was dilated using 18-20 mm TTS balloon in a sequential fashion for 30 seconds. It appeared regular with no erythema erosions or ulcerations. Rest of the esophagus appeared normal. Patient tolerated the procedure well. At this time the patient continued to remain sedation. Initial digital rectal examination was normal. Olympus CF 160 video colonoscope was then inserted into the rectum and gradually advanced to the cecum without any difficulty. Careful examination was performed as the scope was gradually being withdrawn. The prep was poor in the cecum despite thorough irrigation I could not visualize the entire cecum. The cecum, ascending colon, transverse colon, descending colon, sigmoid colon and rectum appeared normal. At her sigmoid diverticulosis. Retroflexion was performed in the rectum and no lesions were noted. Patient tolerated the procedure well. Impression: 1. Upper endoscopy revealed small hiatal hernia widely patent distal esophageal Schatzki's ring status post balloon dilation with an 18-20 mm TTS balloon and small gastric polyps 2. Colonoscopy revealed scattered sigmoid diverticulosis but no evidence of colorectal neoplasia Recommendations: Findings of this examination were discussed with the patient as well as her family. She was advised to have a repeat screening colonoscopy in 5 years from now because of prior history of colon polyps
[2022-12-13 08:40] VITALS: BP 121/55; PULSE 84; RESP 18
== END 2022-12-13 09:04 | disposition home or self-care (01) ==
LOC: ORWHC2ENDO 06:46
PROVIDERS: ATTEND Internal Medicine Gastroenterology
DX: Z12.11 Encounter for screening for malignant neoplasm of colon (principal); K57.30 Diverticulosis of large intestine without perforation or abscess without bleeding; K21.9 Gastro-esophageal reflux disease without esophagitis; K31.7 Polyp of stomach and duodenum; K22.2 Esophageal obstruction; Z87.19 Personal history of other diseases of the digestive system
CPT/HCPCS: 43249; J2704; J2001; C1726; G0121; 88305

== ENCOUNTER → 2023-01-24 | Outpatient (CLI) | payer MEDICARE ==
--- NOTE | 2023-01-24 09:55 | XR ---
EXAMINATION TYPE: XR chest 2V DATE OF EXAM: 01/24/2023 9:48 AM COMPARISON: Chest radiographs from 06/22/2021 TECHNIQUE: XR chest 2V Frontal and lateral views of the chest. CLINICAL INDICATION:Female, 77 years old with history of Z01.818; FINDINGS: Lungs/Pleura: There is no evidence of pleural effusion, focal consolidation, or pneumothorax. Pulmonary vascularity: Unremarkable. Heart/mediastinum: Cardiomediastinal silhouette is unremarkable. Two lead cardiac conduction device o verlying the left hemithorax with lead tips projecting over the right ventricle and right atrium. Musculoskeletal: No acute osseous pathology. IMPRESSION: No acute cardiopulmonary disease/process.
[2023-01-24 10:07] LABS: INR 0.9 (<1.2); Partial Thromboplastin Time 25.2 sec (22.0-30.0); Prothrombin Time 9.4 sec (9.0-12.0)
[2023-01-24 15:13] LABS: Basophils # (A) 0.05 X 10*3/uL (0.00-0.10); Basophils % (A) 0.8 %; Eosinophils # (A) 0.24 X 10*3/uL (0.04-0.35); Eosinophils % (A) 3.7 %; HCT 40.7 % (37.2-46.3); HGB 12.5 g/dL (12.0-15.0); Immature Grans, Automated 0.5 %; Lymphocytes # (A) 0.74 X 10*3/uL (0.90-5.00); Lymphocytes % (A) 11.4 %; MCH 27.6 pg (27.0-32.0); MCHC 30.7 g/dL (32.0-37.0); MCV 89.8 fL (80.0-97.0); Mean Platelet Volume 9.8 fL (9.5-12.2); Monocytes # (A) 0.63 X 10*3/uL (0.20-1.00); Monocytes % (A) 9.7 %; NRBC Per 100 WBC 0 /100 WBCS (0.0-0.0); Neutrophils # (A) 4.81 X 10*3/uL (1.80-7.70); Neutrophils % (A) 73.9 %; Platelet Count 296 X 10*3/uL (140-440); RBC 4.53 X 10*6/uL (4.10-5.20); RDW 14.2 % (11.5-14.5)
[2023-01-24 15:55] LABS: African American GFR (CKD) 83.6 (60.0-200.0); Anion Gap 10.6 mmol/L (10.00-18.00); Blood Urea Nitrogen 17.6 mg/dL (9.0-27.0); Calcium 9.9 mg/dL (8.7-10.3); Carbon Dioxide 29.4 mmol/L (20.0-27.5); Non-African American GFR(CKD) 72.1 (60.0-200.0)
[2023-01-24 16:28] LABS: Appearance,Urine Clear (Clear); Bilirubin,Urine Negative (Negative); Blood,Urine Negative (Negative); Color,Urine Yellow (Yellow); Ketones,Urine Negative (Negative); Nitrite,Urine Negative (Negative); PH, Urine 6.5 (5.0-8.0); Specific Gravity,Urine 1.021 (1.001-1.030); Urobilinogen,Urine 0.2 (0.2,1.0)
== END | disposition home or self-care (01) ==
LOC: LABPAT 08:35
PROVIDERS: ATTEND Orthopaedic Surgery Orthopaedic Surgery of the Spine
DX: Z01.818 Encounter for other preprocedural examination (principal); I25.2 Old myocardial infarction; M48.061 Spinal stenosis, lumbar region without neurogenic claudication; R94.31 Abnormal electrocardiogram [ECG] [EKG]
CPT/HCPCS: 71046; 80048; 81003; 85025; 85610; 85730; 87070; 93005

== ENCOUNTER 2023-02-01 10:37 | Inpatient (IN) | payer MEDICARE ==
[2023-01-27 13:05] VITALS: BMI 25.6
[~2023-02-01 10:37] MED LIST changes: +DEXAMETHASONE SOD PHOSPHATE 4 MG/ML 1 ML VIAL IV ONE; +HYDROmorphone 0.5 MG/0.5 ML SYRINGE IVP PRN; -LACTATED RINGERS 1,000 ML IV SCH; +ONDANSETRON 4 MG/2 ML VIAL IVP ONE; +ceFAZolin 1,000 MG in SODIUM CHLORIDE 0.9% IRRIGATIO 1,000 ML IRRIGATION PRN
[2023-02-01] MEDS ORDERED: LACTATED RINGERS 1,000 ML IV ONE ×3 (11:00→16:31)
[2023-02-01] MEDS ORDERED: KETAMINE 10 MG/ML 20 ML VIAL ONE (12:27)
[2023-02-01] MEDS ORDERED: NEOSTIGMINE 1 MG/ML 10 ML VIAL ONE (12:27)
[2023-02-01] MEDS ORDERED: GLYCOPYRROLATE 0.2 MG/ML 2 ML VIAL ONE (12:27)
[2023-02-01] MEDS ORDERED: fentaNYL (PF) 50 MCG/ML 2 ML AMP ONE (12:27)
[2023-02-01] MEDS ORDERED: ROCURONIUM 10 MG/ML (5 ML VIAL) IV ONE (12:27)
[2023-02-01] MEDS ORDERED: LIDOCAINE 2% INJ 20 MG/ML (2 ML VIAL) ONE (12:27)
[2023-02-01] MEDS ORDERED: SUCCINYLCHOLINE CHLORIDE 200 MG/10 ML VIAL IV ONE (12:27)
[2023-02-01] MEDS ORDERED: PROPOFOL 10 MG/ML 20 ML VIAL IV ONE (12:27)
[2023-02-01] MEDS ORDERED: MIDAZOLAM 2 MG/2 ML VIAL ONE (12:27)
[2023-02-01] MEDS ORDERED: PHENYLEPHRINE-0.9% NACL SYG 1,000 MCG/10 ML SYRINGE ONE (12:27)
[2023-02-01] MEDS ORDERED: BUPIVACAINE (PF) 0.5% 30 ML VIAL SQ ONE ×2 (13:10)
[2023-02-01] MEDS ORDERED: LIDOCAINE 2%-EPI 1:100,000 20 ML VIAL SQ ONE ×2 (13:10)
[2023-02-01] MEDS ORDERED: THROMBIN (BOVINE) 5,000 UNIT VIAL MISCELLANE ONE (13:18)
[2023-02-01] MEDS ORDERED: GELATIN SPONGE,ABSORB (LARGE) 1 EACH SPONGE MISCELLANE ONE (13:18)
[2023-02-01] MEDS ORDERED: HYDROmorphone 0.5 MG/0.5 ML SYRINGE IVP PRN (15:03)
[2023-02-01] MEDS ORDERED: MAGNESIUM HYDROXIDE 2,400 MG/10 ML CUP PO PRN ×2 (15:03)
[2023-02-01] MEDS ORDERED: BENZOCAINE/MENTHOL LOZENG 1 EACH LOZENGE MUCOUS MEM PRN (15:03)
[2023-02-01] MEDS ORDERED: SENNOSIDES-DOCUSATE SODIUM 1 EACH TAB PO PRN (15:03)
[2023-02-01] MEDS ORDERED: DOCUSATE 100 MG CAP PO PRN (15:07)
[2023-02-01] MEDS ORDERED: diphenhydrAMINE 25 MG CAP PO PRN (15:07)
[2023-02-01] MEDS ORDERED: CYCLOBENZAPRINE 10 MG TAB PO PRN (15:07)
[2023-02-01] MEDS ORDERED: ACETAMINOPHEN TAB 500 MG TAB PO PRN (15:07)
[2023-02-01] MEDS ORDERED: ALBUTEROL NEBULIZED 2.5 MG/3 ML INHALATION PRN (15:07)
[2023-02-01] MEDS ORDERED: FLUTICASONE 50MCG/SPRAY NASAL 16GM EA NOSTRIL PRN (15:07)
--- NOTE | 2023-02-01 15:13 | P.OP ---
Date of Procedure: 02/01/23 Preoperative Diagnosis: Spondylolisthesis, dynamic L4-L5 Spinal stenosis L4 5 Degenerative disc disease Facet arthrosis Lower extremity radiculopathy Neurogenic claudication Postoperative Diagnosis: Same Anesthesia: GETA Pathology: none sent Condition: stable Disposition: PACU Description of Procedure: DESCRIPTION OF PROCEDURE(S): BRIEF OPERATIVE NOTE Preoperative Diagnosis: Spondylolisthesis, dynamic L4-L5 Spinal stenosis L4 5 Degenerative disc disease Facet arthrosis Lower extremity radiculopathy Neurogenic claudication Postoperative Diagnosis: Same Procedure: Laminectomy and decompression L4 [address] navigation aided Minimally invasive Posterior lateral decompression and facet fusion L4 5 Minimally invasive Transforaminal lumbar interbody fusion for a 360 fusion L4 5 Discectomy for decompression L4 5 Placement of interbody graft L4 5 Use of computer navigation for fusion Local autogenous bone grafting Aspiration of bone marrow from the vertebral body pedicle from L4 Use of bone graft extenders Surgeon: Dr. Novoa Visual Merchandiser: Doyle HAHN who is present throughout the entire the case persistence during positioning, dissection, exposure, visualization, and all crucial elements of the case as well as closure. Anesthesia: General anesthesia per Dr. Mccormick Estimated blood loss: Approximately 150 mL Complications: None apparent Components implanted: K2M minimally invasive [place] pedicle screw system withscrews measuring 6.5 mm in diameter to rods one PEEK 6 mm interbody cage with 10 mL of osteo amp bio4 bone graft substitute and 30 mL of the BX bone fibers to supplement the local autogenous bone graft and bone marrow aspirate Disposition: To recovery room in good stable condition. OPERATIVE INDICATIONS The patient has had severe issues at their lower extremity in her lower back over the past several years with significant worsening over the past several months. Over the past few months the patient had pain at their back and their lower extremities. The patient is having severe radicular symptoms at their lower extremity with weakness. The patient is having significant pain in their back. They are unable to obtain any comfort. We did aggressive conservative treatment with medications therapy and interventional pain management however thery were not having any relief. The patient also showed evidence of a listhesis at L4 5 with some dynamic instability with severe disc height loss and degenerative spondylosis with facet arthrosis.. The patient has been through conservative treatment. We discussed various treatment options including surgery, and the patient wishes to proceed with surgery We discussed the risk, patient's alternatives and benefits of surgery including but not limited to, risk of bleeding risk of infection, risk of need for further surgery, risk of decreased, loss of motion, muscle function, malunion nonunion, hardware failure, nerve damage, paralysis, heart attack, blindness and . They understood issues with the current pandemic and the possibility of exposure. OPERATIVE SUMMARY After discussing all the risks, patient alternatives and benefits at length, the patient elected to proceed with surgical intervention, signed informed consent, and presented for their procedure. The patient was seen and examined in the preoperative holding area and the surgical site was marked. The patient was given antibiotics and brought to the operating room. The patient was sedated and intubated by anesthesia in standard fashion. The patient was positioned on to the operating room table in a prone position on the appropriate frame which was well-padded and well molded. We were careful to pad any bony prominences and pressure points. We were careful to maintain the patient's cervical spine and good neutral alignment and position throughout. The patient was prepped and draped in a normal standard fashion. An appropriate timeout and keystone protocol performed. We were able to proceed with the surgery. The local wound area was infiltrated with local anesthetic. Over the right iliac crest I was able to make small stab incisions and establish a guidepin screw fixation to the iliac crest 2. I was able place the computer referencing device over the guidepins to establish an appropriate reference point for the Ziem CT navigation. We then were able to place patient in an appropriate drape and do a navigation spin for visualization and 3-D reconstruction of the lumbar spine. I was able utilize C-arm guidance and navigation to establish appropriate position over the pedicles bilaterally at the appropriate levels at L4 5. With the appropriate levels confirmed was able to make small incisions over the appropriate pedicle sites bilaterally. Utilizing the computer navigation device I was able to establish bony landmarks at the right iliac crest for a bony reference point for the navigation device. I was able to establish a Jamshidi needle over the lateral aspect of the pedicle and advanced the trocar into the pedicle being careful not to breech superiorly inferiorly medially or laterally using computer navigation device. Position was confirmed regularly with AP and lateral images on C-arm and with the computer navigation device at the appropriate levels bilaterally and L4 5. I was able to establish the trocar into the pedicle appropriately into the posterior aspect of the vertebral body bilaterally at the appropriate levels. This was done at each of the pedicle positions and each of the vertebrae. At the superior vertebrae I was able to take approximately 25 mL of bone aspiration for use later in the case to supplement the allograft and autograft bone. I was able place the guidewire into the trocar and into the vertebral body appropriately under C-arm guidance. Dissection was taken down over the wire to the appropriate starting position for the screw placed. The appropriate length screw was chosen, threaded over the guidewire and screwed appropriately into the pedicle and vertebral body under C-arm guidance in excellent alignment and position with good bony purchase. This is done at each of the screw sites at the appropriate levels at L4 5 bilaterally.. With the screws intact I extended the incision to connect the screw hole sites on the most symptomatic side on the left. I dissected down to establish access over the pars and lamina to the base of the spinous process. I was able to expose the facet joint. The capsule the facet was taken down and showed some severe facet arthrosis at the joint with osteophytes. I was able to use a combination of curettes and Kerrison rongeurs and a high-speed drill to take down the facet joint and do a facetectomy. I was able get excellent foraminal decompression and central decompression with undermining across midline to perform a laminectomy centrally and contralaterally. As able get good central decompression. The ligamentum flavum was taken down to further decompress centrally and at bilateral neural foramen. I was able to expose the disc space and visualize the traversing nerve root. Note was made of some disc protrusion and disc herniation that was abutting the traversing nerve root at the level causing further compression of the nerve root. I was able to establish a annulotomy at the appropriate level protecting soft tissue and neural structures. Note was made of some severe disc desiccation at the disc and disc loss. I performed a complete discectomy with accommodation of curettes and rasps and scrapers. I was able get good endplate preparation at the disc space. I sized for the appropriate size interbody spacer protecting the soft tissue and neural structures. The wound was copiously irrigated and suctioned dry. There is no evidence of any dural tear or leak. I was able to pack the disc space with local autogenous bone graft as well as a small amount of bone graft which was also placed into the interbody cage itself. Protecting the soft tissue structures and neural structures I was able place the interbody cage in good alignment and good position with good fit and fill at the interbody space. Position was confirmed with C-arm guidance. Good hemostasis maintained. There is no evidence of any dural tear or leak. The wound was irrigated and suctioned dry. With the hardware intact, intraoperative C-arm imaging was again taken which showed good alignment and position of the hardware at the appropriate levels at L4 5. We were then able to measure, contour and place the rods and appropriate hardware bilaterally. I was able to place capcrews, tighten them down, and torque them with the torque screwdriver appropriately. With this intact I was able to place the local autogenous bone graft with additional bone graft enhancer as necessary into the posterior lateral gutters over the decorticated transverse processes and facet joints on the contralateral side on the right. The remainder of the bone graft was placed over the facet joint on the cont ralateral side after taking down the facet joint capsule. With the bone graft intact, a stable construct, and good decompression at the appropriate levels, we were able to proceed with closure. Good hemostasis was maintained. There is no evidence of dural tear or leak. The fascia was closed for a watertight closure. he subcuticular tissue was closed with absorbable suture. The wound was cleaned and dried and dressed with the appropriate dressing. The drapes were broken down. The patient was gently rolled back onto their hospital bed being careful to maintain their cervical spine and good neutral alignment and position. They were woken up by anesthesia, extubated, and brought to the recovery room in good stable condition. The patient will be admitted to the hospital for appropriate postoperative care, medical management and monitoring. We will continue to follow them closely about the postoperative course.
[2023-02-01] MEDS ORDERED: DENOSUMAB 60 MG/ML 1 ML SYRINGE SQ SCH (15:15)
[2023-02-01] MEDS ORDERED: HYDROmorphone 0.5 MG/0.5 ML SYRINGE IVP ONE ×2 (15:35→16:01)
--- NOTE | 2023-02-01 16:28 | FL ---
EXAMINATION TYPE: FL guidance operating room, XR lumbar spine 2 or 3V DATE OF EXAM: 02/01/2023 CLINICAL HISTORY: Low back pain. TECHNIQUE: Fluoroscopy. Intraoperative 2 views lumbar spine. COMPARISON: CT lumbar spine November 25, 2022. FINDINGS: Fluoroscopic guidance was provided during minimally invasive lumbar fusion procedure perfo rmed by Dr. Novoa. A total of approximate 30 seconds of fluoroscopic time was utilized during the pr ocedure and 6 spot images was acquired. Total dose area product (DAP) in uGy*m?, mGy*cm? (or similar : 1.0. Images acquired show placement of posterior interpedicular rods and screws bilaterally at L4-L5 level . IMPRESSION: As Above.
[2023-02-01] MEDS: HYDROcodone/APAP 5-325MG 1 EACH TAB PO PRN ×2 (17:29→21:55)
[2023-02-01] MEDS: HYDROmorphone 1 MG/ML 1 ML SYRINGE IVP PRN ×2 (18:17→22:50)
[2023-02-01] MEDS: LACTATED RINGERS 1,000 ML IV SCH (19:30)
[2023-02-01] MEDS: PANTOPRAZOLE 40 MG TABLET PO SCH (19:30)
[2023-02-01] MEDS: SODIUM CHLORIDE 0.9% 1,000 ML IV SCH (19:30)
[2023-02-01] MEDS: EZETIMIBE 10 MG TAB PO SCH (21:06)
[2023-02-01] MEDS: ATORVASTATIN 40 MG TAB PO SCH (21:06)
[2023-02-01] MEDS: DOXYCYCLINE 100 MG CAP PO SCH (21:07)
[2023-02-01] MEDS: traMADol 50 MG TAB PO PRN (21:07)
[2023-02-01] MEDS: LOSARTAN 25 MG TAB PO SCH (21:07)
[2023-02-01] MEDS: MONTELUKAST 10 MG TAB PO SCH (21:07)
[2023-02-01] MEDS: ASCORBIC ACID 500 MG TAB PO SCH (21:07)
[2023-02-01] MEDS: CALCIUM CARBONATE 500 MG CHEWABLE PO SCH (21:07)
[2023-02-01] MEDS: ONDANSETRON 4 MG/2 ML VIAL IVP PRN (21:12)
[2023-02-01] MEDS: SYMBICORT 160-4.5 MCG INHALER INHALATION SCH (21:44)
[2023-02-02] MEDS: SODIUM CHLORIDE 0.9% 1,000 ML IV SCH ×2 (06:16→19:00)
[2023-02-02] MEDS: PANTOPRAZOLE 40 MG TABLET PO SCH ×2 (06:16→17:02)
[2023-02-02] MEDS: LEVOTHYROXINE 25 MCG TAB PO SCH (06:16)
[2023-02-02] MEDS: HYDROmorphone 1 MG/ML 1 ML SYRINGE IVP PRN ×3 (06:18→18:05)
[2023-02-02 06:34] LABS: Basophils % (A) 0 %; Eosinophils % (A) 0 %; HCT 35.2 % (34.0-46.0); HGB 11.5 gm/dL (11.4-16.0); Lymphocytes # (A) 0.3 k/uL (1.0-4.8); Lymphocytes % (A) 3 %; MCH 28.8 pg (25.0-35.0); MCHC 32.5 g/dL (31.0-37.0); MCV 88.6 fL (80.0-100.0); Mean Platelet Volume 7.2; Monocytes # (A) 0.7 k/uL (0-1.0); Monocytes % (A) 6 %; Neutrophils # (A) 10.7 k/uL (1.3-7.7); Neutrophils % (A) 90 %; Platelet Count 249 k/uL (150-450); RBC 3.97 m/uL (3.80-5.40); RDW 13.7 % (11.5-15.5); WBC 11.9 k/uL (3.8-10.6)
[2023-02-02 06:49] LABS: Potassium 4.4 mmol/L (3.5-5.1)
[2023-02-02 06:50] LABS: African American GFR (CKD) >90 (>60 ml/min/1.73 sqM); Anion Gap 10 mmol/L; Blood Urea Nitrogen 10 mg/dL (7-17); Calcium 7.4 mg/dL (8.4-10.2); Carbon Dioxide 23 mmol/L (22-30); Chloride 97 mmol/L (98-107); Glucose 96 mg/dL (74-99); Non-African American GFR(CKD) >90 (>60 ml/min/1.73 sqM); Sodium 130 mmol/L (137-145)
--- NOTE | 2023-02-02 08:57 | P.PN ---
Progress Note - Text Progress Note Date: 02/02/23 Postoperative day #1 Patient is seen and examined today at bedside. The patient has some pain around the surgical site as expected. Pain is being controlled with medication. She has not yet been out of bed. She feels her legs are doing well. She denies any nausea or vomiting. Physical Exam Afebrile with stable vital signs Abdomen is soft nontender. Chest has good excursion deep and space expiration The incision site is clean dry and intact. No erythema there is no purulence. Extremities have not had neurologic change from prior to surgery. She has sustained dorsal flexion plantarflexion and EHL hip flexion and extension intact. Calves and thighs were soft nontender without evidence of DVT. Assessment/Plan Postoperative day #1 status post and we basically decompression fusion L4 5 for her spondylolisthesis with spinal stenosis and disc degeneration Patient is progressing as expected from the surgery. We will continue to increase the patient's mobilization with therapy. We will start to get her out of bed this morning and will discontinue her Mak catheter. We will continue pain control with oral or IV medications. We'll continue to follow patient closely.
[2023-02-02] MEDS ORDERED: NON FORMULARY DRUG (Ubidecarenone [Co Q-10] 100 MG Capsule) PO SCH (09:00)
[2023-02-02] MEDS: CYCLOBENZAPRINE 10 MG TAB PO PRN ×2 (09:05→15:39)
[2023-02-02] MEDS: HYDROcodone/APAP 5-325MG 1 EACH TAB PO PRN ×3 (09:05→20:39)
[2023-02-02] MEDS: GABAPENTIN 300 MG CAP PO PRN ×2 (09:05→15:39)
[2023-02-02] MEDS: ONDANSETRON 4 MG/2 ML VIAL IVP PRN (09:08)
[2023-02-02] MEDS: LACTATED RINGERS 1,000 ML IV SCH (09:10)
[2023-02-02] MEDS: CALCIUM CARBONATE 500 MG CHEWABLE PO SCH ×2 (09:19→20:39)
[2023-02-02] MEDS: CHOLECALCIFEROL 25 MCG (1000 IU) TABLET PO SCH (09:21)
[2023-02-02] MEDS: ASCORBIC ACID 500 MG TAB PO SCH ×2 (09:21→20:38)
[2023-02-02] MEDS: SENNOSIDES-DOCUSATE SODIUM 1 EACH TAB PO SCH (09:21)
[2023-02-02] MEDS: SYMBICORT 160-4.5 MCG INHALER INHALATION SCH ×2 (09:45→22:23)
[2023-02-02] MEDS: TIOTROPIUM 2.5 MCG INHALER INHALATION SCH (09:57)
[2023-02-02] MEDS: LACTOBACILLUS ACIDOPH & BULGAR 1 EACH PACKET PO SCH (10:20)
[2023-02-02] MEDS: DILTIAZEM CD 180 MG CAP.ER.24H PO SCH (10:23)
[2023-02-02] MEDS: DOXYCYCLINE 100 MG CAP PO SCH ×2 (10:23→20:39)
[2023-02-02] MEDS: KETOTIFEN 0.025% OPHTH DROPS 5 ML BTL BOTH EYES SCH (10:44)
--- NOTE | 2023-02-02 12:25 | CONS ---
CONSULTATION REASON FOR CONSULTATION: Advice regarding CAD and other multiple medical issues, requested by Dr. Novoa. HISTORY OF PRESENT ILLNESS: This is a 77-year-old woman with a past medical history of CAD, myocardial infarction, and other medical issues, underwent laminectomy and decompression L4-5. The patient complains of some back pain. There is no history of any fever, rigors, or chills at this time. PAST MEDICAL HISTORY: Reviewed, includes asthma, CAD, fibromyalgia, GERD. Rest of the history and rest of the chart are also reviewed. HOME MEDICATIONS: Reviewed, include Ultram, doses and rest of the medications reviewed. ALLERGIES: Reviewed, include . Rest of allergies noted. FAMILY HISTORY: History of skin cancer. SOCIAL HISTORY: No history of smoking or alcohol intake. REVIEW OF SYSTEMS: A 14-point review of systems is negative except as mentioned earlier. PHYSICAL EXAMINATION: VITAL SIGNS: Pulse is 113, blood pressure 135/81, respirations 16. HEENT: Conjunctivae normal. NECK: No jugular vein distention. CARDIOVASCULAR: S1, S2 muffled. RESPIRATORY: at the bases. No rhonchi. No crackles. ABDOMEN: Soft and nontender. LEGS: No edema. NERVOUS SYSTEM: Nonfocal. LABORATORY DATA: Reviewed. ASSESSMENT: 1. Status post laminectomy and decompression, L4-5, for severe degenerative joint disease. 2. Tachycardia, postoperative. 3. Mild . 4. History of asthma. 5. History of coronary artery disease. 6. Hypertension. 7. Hyperlipidemia. 8. History of myocardial infarction. RECOMMENDATIONS AND DISCUSSION: This is a 77-year-old woman, who presented with multiple medical issues. We will monitor the patient closely, continue the current medications and symptomatic treatment. Otherwise, I would recommend resume the home medication and monitor blood pressure closely. I would also recommend a set of troponins and EKG also. Further recommendations to follow. DVT prophylaxis and incentive spirometry. See orders for further details. MMODL / IJN: [id number] /
[2023-02-02 13:55] LABS: Appearance,Urine Clear (Clear); Bilirubin,Urine Negative (Negative); Blood,Urine Negative (Negative); Color,Urine Yellow; Glucose,Urine (UA) Negative (Negative); Ketones,Urine 2+ (Negative); Leukocyte Esterase,Urine Small (Negative); Mucus,Urine Rare /hpf; Nitrite,Urine Negative (Negative); PH, Urine 6.5 (5.0-8.0); Protein,Urine Trace (Negative); RBC,Urine 3 /hpf (0-5); Specific Gravity,Urine 1.018 (1.001-1.035); Urobilinogen,Urine <2.0 mg/dL (<2.0); WBC,Urine 18 /hpf (0-5)
[2023-02-02] MEDS: ATORVASTATIN 40 MG TAB PO SCH (20:38)
[2023-02-02] MEDS: LOSARTAN 25 MG TAB PO SCH (20:39)
[2023-02-02] MEDS: MONTELUKAST 10 MG TAB PO SCH (20:39)
[2023-02-02] MEDS: EZETIMIBE 10 MG TAB PO SCH (20:39)
[2023-02-03] MEDS: HYDROmorphone 1 MG/ML 1 ML SYRINGE IVP PRN ×3 (02:20→20:26)
[2023-02-03] MEDS: CYCLOBENZAPRINE 10 MG TAB PO PRN ×3 (03:55→18:14)
[2023-02-03] MEDS: HYDROcodone/APAP 5-325MG 1 EACH TAB PO PRN ×3 (03:55→16:13)
[2023-02-03] MEDS: LEVOTHYROXINE 25 MCG TAB PO SCH (06:33)
[2023-02-03] MEDS: PANTOPRAZOLE 40 MG TABLET PO SCH ×2 (06:33→18:14)
[2023-02-03] MEDS: SODIUM CHLORIDE 0.9% 1,000 ML IV SCH ×2 (06:34→20:26)
[2023-02-03] MEDS: LACTATED RINGERS 1,000 ML IV SCH (06:35)
[2023-02-03 08:08] LABS: African American GFR (CKD) >90 (>60 ml/min/1.73 sqM); Anion Gap 3 mmol/L; Blood Urea Nitrogen 7 mg/dL (7-17); Calcium 7.3 mg/dL (8.4-10.2); Carbon Dioxide 27 mmol/L (22-30); Chloride 97 mmol/L (98-107); Glucose 124 mg/dL (74-99); Magnesium 2.2 mg/dL (1.6-2.3); Non-African American GFR(CKD) >90 (>60 ml/min/1.73 sqM); Potassium 4.3 mmol/L (3.5-5.1); Sodium 127 mmol/L (137-145)
[2023-02-03 08:46] LABS: Basophils % (A) 0 %; Eosinophils # (A) 0.1 k/uL (0-0.7); Eosinophils % (A) 1 %; HCT 33.4 % (34.0-46.0); HGB 10.7 gm/dL (11.4-16.0); Lymphocytes # (A) 0.5 k/uL (1.0-4.8); Lymphocytes % (A) 5 %; MCH 27.8 pg (25.0-35.0); MCV 86.9 fL (80.0-100.0); Mean Platelet Volume 7.9; Monocytes # (A) 0.6 k/uL (0-1.0); Monocytes % (A) 6 %; Neutrophils # (A) 9.2 k/uL (1.3-7.7); Neutrophils % (A) 87 %; Platelet Count 226 k/uL (150-450); RBC 3.84 m/uL (3.80-5.40); RDW 13.9 % (11.5-15.5); WBC 10.5 k/uL (3.8-10.6)
[2023-02-03] MEDS: DILTIAZEM CD 180 MG CAP.ER.24H PO SCH (08:53)
[2023-02-03] MEDS: CHOLECALCIFEROL 25 MCG (1000 IU) TABLET PO SCH (08:53)
[2023-02-03] MEDS: ASCORBIC ACID 500 MG TAB PO SCH ×2 (08:53→20:25)
[2023-02-03] MEDS: SENNOSIDES-DOCUSATE SODIUM 1 EACH TAB PO SCH (08:53)
[2023-02-03] MEDS: DOXYCYCLINE 100 MG CAP PO SCH ×2 (08:53→20:25)
[2023-02-03] MEDS: CALCIUM CARBONATE 500 MG CHEWABLE PO SCH ×2 (08:53→20:25)
[2023-02-03] MEDS: KETOTIFEN 0.025% OPHTH DROPS 5 ML BTL BOTH EYES SCH (08:54)
--- NOTE | 2023-02-03 09:02 | P.PN ---
Progress Note - Text Progress Note Date: 02/03/23 Orthopedic Spine History of present illness: Patient is a pleasant 77-year-old female who is seen and examined at the bedside following posterior lateral decompression and fusion performed Monday. She has been progressing somewhat slowly postoperatively. Her Mak catheter was discontinued yesterday. She has some urinary retention. She did require straight catheterization. They're currently planned to monitor with bladder scan imaging today. If she continues to have retention we will plan for reinsertion of Mak catheter. Discontinue have significant pain at the surgical sites of her lumbar spine. She is requiring oral and IV medications for pain control. She was able to work on a limited basis with physical therapy yesterday. She is utilizing a walker. She continues be seen and examined by medicine. EKG was performed yesterday with some changes as ordered by medicine following tachycardia postoperatively. Troponins were negative. Patient has been able to eat without significant difficulty but does not have much of an appetite. Physical Exam Lumbar Fusion: Status post surgical day number 1 Patient is awake, alert, and oriented 3 Vital signs stable Good chest excursion with deep inspiration and expiration Dorsiflexion, plantarflexion, and extensor hallucis longus positive sustained bilaterally No signs or symptoms of DVT; no calf pain; pneumatic cuffs intact bilateral lower extremities Optifoam dressings are clean, dry, and intact over the lumbar spine and right iliac crest; no erythema, purulence, or signs of infection Neurovascularly intact bilaterally lower extremities Assessment: Status post L4-5 minimally invasive posterior lateral decompression and fusion with transforaminal lumbar interbody fusion Low back pain Lumbar facet arthrosis Lower degenerative disc disease Lower extremity radiculopathy Neurogenic claudication L4-5 dynamic spondylolisthesis L4-5 spinal stenosis Coronary artery disease Fibromyalgia Hypertension Hyperlipidemia Plan: 1. Ambulate as tolerated; work with Physical Therapy to increase mobilization. Patient may continue utilize walker to aid in ambulation. Patient does have a walker at home. 2. Continue pain control with IV and oral medications; will plan to begin weaning the patient off of IV narcotic medication in anticipation for discharge home in the next 1-2 days; she has continued has significant difficulty with pain control. MAPS has been reviewed today, 02/03/2023, with an Overall Overdose Risk Score of 260. An "Opiod Start Talking" Form has been signed and placed in the patient's chart. A prescription has been written for [place] 5 mg/325 mg, 1 tab every 6 hours as needed for acute pain, dispensed #28. Patient is also given a prescription for baclofen 10 mg 1 tab 3 times a day, as needed for muscle spasm, dispense #90. Medicines are sent to her regular pharmacy request of the patient. 3. Dressings to remain intact with Optifoam; patient may shower with dressings intact 4. Medical management can continue to manage patient for patient's other medical diagnoses 5. Patient has had some difficulty with urinary retention postoperatively following discontinuation of Mak catheter. She didn't require straight catheterization yesterday. The patient continues to have urinary retention we'll plan for reinsertion of Mak catheter. 6. We will continue to follow the patient closely; depending on the patient's progress. Patient has been progressing slowly postoperatively. If she is able to improve, she'll most likely be discharged home as coming 02/05/2023. 7. Patient can follow-up with Doyle Akins PA-C or Dr. Dave Novoa at [facility] in 2-3 weeks following discharge Patient is seen and examined at bedside and I agree with the above. Patient is feeling well without any chest pain or shortness breath. We'll continue to manage her pain and we'll continue to follow her closely. She'll continue to increase her mobilization as well.
[2023-02-03] MEDS: SYMBICORT 160-4.5 MCG INHALER INHALATION SCH ×2 (09:40→20:54)
[2023-02-03] MEDS: TIOTROPIUM 2.5 MCG INHALER INHALATION SCH (09:40)
[2023-02-03] MEDS: LACTOBACILLUS ACIDOPH & BULGAR 1 EACH PACKET PO SCH (11:08)
--- NOTE | 2023-02-03 17:04 | P.PN ---
Subjective Progress Note Date: 02/03/23 77-year-old female who is seen and examined at the bedside following posterior lateral decompression and fusion performed Monday. She has been progressing somewhat slowly postoperatively. Her Mak catheter was discontinued yesterday. She has some urinary retention. She did require straight catheterization. They're currently planned to monitor with bladder scan imaging today. If she continues to have retention we will plan for reinsertion of Mak catheter. Objective - Vital Signs Vital signs: Vital Signs Temp 97.8 F 02/03/23 07:20 Pulse 88 02/03/23 07:20 Resp 15 02/03/23 07:20 BP 129/75 02/03/23 07:20 Pulse Ox 94 L 02/03/23 07:20 FiO2 Intake & Output 02/02/23 02/03/23 02/03/23 18:59 06:59 18:59 Output Total 1100 1250 950 Balance -1100 -1250 -950 Output: Urine 1100 900 950 Uretheral (Mak) 550 Post Void Residual 350 Other: Voiding Method Indwelling Catheter Bedside Commode # Voids 3 - Exam PHYSICAL EXAMINATION: GENERAL: The patient is alert and oriented x3, not in any acute distress. Well developed, well nourished. HEENT: Pupils are round and equally reacting to light. EOMI. No scleral icterus. No conjunctival pallor. Normocephalic, atraumatic. No pharyngeal erythema. No thyromegaly. CARDIOVASCULAR: S1 and S2 present. No murmurs, rubs, or gallops. PULMONARY: Chest is clear to auscultation, no wheezing or crackles. ABDOMEN: Soft, nontender, nondistended, normoactive bowel sounds. No palpable organomegaly. MUSCULOSKELETAL: No joint swelling or deformity. EXTREMITIES: No cyanosis, clubbing, or pedal edema. NEUROLOGICAL: Gross neurological examination did not reveal any focal deficits. SKIN: No rashes. - Labs CBC & Chem 7: 02/03/23 07:35 02/03/23 07:35 Labs: Abnormal Lab Results - Last 24 Hours (Table) 02/02/23 02/03/23 02/03/23 Range/Units 11:47 07:35 07:35 Hgb 10.7 L (11.4-16.0) gm/dL Hct 33.4 L (34.0-46.0) % Neutrophils # 9.2 H (1.3-7.7) k/uL Lymphocytes # 0.5 L (1.0-4.8) k/uL Sodium 127 L (137-145) mmol/L Chloride 97 L (98-107) mmol/L Glucose 124 H (74-99) mg/dL Calcium 7.3 L (8.4-10.2) mg/dL Urine Protein Trace H (Negative) Urine Ketones 2+ H (Negative) Ur Leukocyte Esterase Small H (Negative) Urine WBC 18 H (0-5) /hpf Urine Mucus Rare H (None) /hpf Assessment and Plan Assessment: Status post laminectomy and decompression at L4 5 for severe DJD Postoperative tachycardia Hypertension Hyperlipidemia Asthma History of coronary artery disease/GA -- Plan is to continue with current IV antibiotics - EKG completed reveals sinus tachycardia with frequent PVCs; cardiology is consulted for further recommendations - Continue with current home medications and monitor vital signs closely - Counseling done and need for DVT prophylaxis and incentive spirometry
[2023-02-03] MEDS: LOSARTAN 25 MG TAB PO SCH (20:25)
[2023-02-03] MEDS: EZETIMIBE 10 MG TAB PO SCH (20:25)
[2023-02-03] MEDS: MONTELUKAST 10 MG TAB PO SCH (20:25)
[2023-02-03] MEDS: ATORVASTATIN 40 MG TAB PO SCH (20:25)
[2023-02-04] MEDS: HYDROcodone/APAP 5-325MG 1 EACH TAB PO PRN ×3 (01:17→22:06)
[2023-02-04] MEDS: CYCLOBENZAPRINE 10 MG TAB PO PRN ×3 (01:17→22:08)
[2023-02-04] MEDS: HYDROmorphone 1 MG/ML 1 ML SYRINGE IVP PRN ×2 (03:49→11:11)
[2023-02-04] MEDS: PANTOPRAZOLE 40 MG TABLET PO SCH ×2 (03:49→17:05)
[2023-02-04] MEDS: LEVOTHYROXINE 25 MCG TAB PO SCH (03:50)
--- NOTE | 2023-02-04 07:03 | P.PN ---
Progress Note - Text Progress Note Date: 02/04/23 Postoperative day #3 Patient is seen and examined today at bedside. The patient has some pain around the surgical site as expected. Pain is being controlled with medication. She feels her pain is making progress as his her mobility. She is denies any chest pain shortness breath she did have some tachycardia. She was also able to void about 400 mL but still had about 400 residual and at the straight cath and now has a Mak catheter intact. Physical Exam Afebrile with stable vital signs Abdomen is soft nontender. Chest has good excursion deep and space expiration The incision site is clean dry and intact. No erythema there is no purulence. Extremities have not had neurologic change from prior to surgery. Lower extremities have sustained dorsal flexion plantar flexion and EHL intact Calves and thighs were soft nontender without evidence of DVT. Assessment/Plan Postoperative day #3 status post minimally invasive decompression fusion L4 5 for her severe spinal stenosis with spondylolisthesis and degenerative disc disease with lower extremity radiculopathy Urinary retention Tachycardia negative troponins Patient is progressing somewhat slowly from the surgery in terms of her ability to void on her own. She is able to void but still has significant residual and had to have her catheter replaced. Medicine is managing this issue. Patient did have some tachycardia and medicine S paralysis to see. She has negative troponins and denies any chest pain. We will continue to increase the patient's mobilization with therapy. We will continue pain control with oral or IV medications. We'll continue to follow patient closely.
[2023-02-04] MEDS: SYMBICORT 160-4.5 MCG INHALER INHALATION SCH ×2 (09:00→21:58)
[2023-02-04] MEDS: TIOTROPIUM 2.5 MCG INHALER INHALATION SCH (09:00)
[2023-02-04] MEDS: LACTOBACILLUS ACIDOPH & BULGAR 1 EACH PACKET PO SCH (10:57)
[2023-02-04] MEDS: CALCIUM CARBONATE 500 MG CHEWABLE PO SCH ×2 (10:57→20:26)
[2023-02-04] MEDS: ASCORBIC ACID 500 MG TAB PO SCH ×2 (10:58→20:26)
[2023-02-04] MEDS: DILTIAZEM CD 180 MG CAP.ER.24H PO SCH (10:58)
[2023-02-04] MEDS: KETOTIFEN 0.025% OPHTH DROPS 5 ML BTL BOTH EYES SCH (10:58)
[2023-02-04] MEDS: SENNOSIDES-DOCUSATE SODIUM 1 EACH TAB PO SCH (10:58)
[2023-02-04] MEDS: CHOLECALCIFEROL 25 MCG (1000 IU) TABLET PO SCH (10:58)
[2023-02-04] MEDS: DOXYCYCLINE 100 MG CAP PO SCH ×2 (10:58→20:26)
[2023-02-04] MEDS: SODIUM CHLORIDE 0.9% 1,000 ML IV SCH (10:59)
[2023-02-04] MEDS: ONDANSETRON 4 MG/2 ML VIAL IVP PRN (14:05)
[2023-02-04] MEDS: GABAPENTIN 300 MG CAP PO PRN (17:05)
[2023-02-04] MEDS: EZETIMIBE 10 MG TAB PO SCH (20:25)
[2023-02-04] MEDS: traMADol 50 MG TAB PO PRN (20:25)
[2023-02-04] MEDS: MONTELUKAST 10 MG TAB PO SCH (20:26)
[2023-02-04] MEDS: LOSARTAN 25 MG TAB PO SCH (20:26)
[2023-02-04] MEDS: ATORVASTATIN 40 MG TAB PO SCH (20:26)
[2023-02-05] MEDS: HYDROcodone/APAP 5-325MG 1 EACH TAB PO PRN ×4 (03:09→20:24)
[2023-02-05] MEDS: SODIUM CHLORIDE 0.9% 1,000 ML IV SCH ×2 (03:09→12:01)
[2023-02-05] MEDS: LEVOTHYROXINE 25 MCG TAB PO SCH (06:36)
[2023-02-05] MEDS: CYCLOBENZAPRINE 10 MG TAB PO PRN ×2 (06:36→16:58)
[2023-02-05] MEDS: PANTOPRAZOLE 40 MG TABLET PO SCH ×2 (06:36→16:58)
[2023-02-05] MEDS: traMADol 50 MG TAB PO PRN ×2 (06:36→16:58)
[2023-02-05] MEDS: SYMBICORT 160-4.5 MCG INHALER INHALATION SCH ×2 (08:34→21:14)
[2023-02-05] MEDS: TIOTROPIUM 2.5 MCG INHALER INHALATION SCH (08:35)
[2023-02-05] MEDS: CHOLECALCIFEROL 25 MCG (1000 IU) TABLET PO SCH (09:45)
[2023-02-05] MEDS: ASCORBIC ACID 500 MG TAB PO SCH ×2 (09:45→20:24)
[2023-02-05] MEDS: KETOTIFEN 0.025% OPHTH DROPS 5 ML BTL BOTH EYES SCH (09:46)
[2023-02-05] MEDS: DILTIAZEM CD 180 MG CAP.ER.24H PO SCH (09:46)
[2023-02-05] MEDS: SENNOSIDES-DOCUSATE SODIUM 1 EACH TAB PO SCH (09:46)
[2023-02-05] MEDS: DOXYCYCLINE 100 MG CAP PO SCH ×2 (09:46→20:25)
[2023-02-05] MEDS: LACTOBACILLUS ACIDOPH & BULGAR 1 EACH PACKET PO SCH (09:46)
[2023-02-05] MEDS: CALCIUM CARBONATE 500 MG CHEWABLE PO SCH ×2 (09:47→20:23)
--- NOTE | 2023-02-05 10:06 | P.PN ---
Subjective Progress Note Date: 02/05/23 This is a 77-year-old female who is status post minimally invasive decompression fusion L4 5 for her severe spinal stenosis with spondylolisthesis and degenerative disc disease with lower extremity radiculopathy. This is postoperative day #4. Patient is seen and evaluated at bedside today. Patient states that she is moving better today, but states that physical therapy did not come to work with her yesterday. Patient does complain of some soreness in the lower back today. Patient has a Mak catheter placed and states that they are planning to remove it later today to see if she is able to void. Patient denies any new complaints today. Objective - Vital Signs Vital signs: Vital Signs Temp 98.2 F 02/05/23 06:52 Pulse 85 02/05/23 06:52 Resp 16 02/05/23 06:52 BP 126/69 02/05/23 06:52 Pulse Ox 92 L 02/05/23 08:38 FiO2 21 02/05/23 08:38 Intake & Output 02/04/23 02/05/23 02/05/23 18:59 06:59 18:59 Intake Total 600 400 Output Total 1350 1875 Balance -750 -1475 Intake: Intake, IV Titration 600 Amount Sodium Chloride 0.9% 1, 600 000 ml @ 75 mls/hr IV . [id number] [facility] Rx#:[id number] Oral 400 Output: Urine 1350 1875 Uretheral (Mak) 1875 Other: Voiding Method Indwelling Catheter Indwelling Catheter - Exam On exam dressings are clean, dry and intact. Patient moves bilateral lower extremities freely. Calvies are soft and nontender to palpation bilaterally. - Labs CBC & Chem 7: 02/03/23 07:35 02/03/23 07:35 Labs: Microbiology - Last 24 Hours (Table) 02/02/23 11:47 Urine Culture - Final Urine,Voided Assessment and Plan Assessment: Status post minimally invasive decompression fusion L4 5 for her severe spinal stenosis with spondylolisthesis and degenerative disc disease with lower extremity radiculopathy. Urinary retention Tachycardia Plan: 1. Continue routine postoperative care and pain control. Dressings are to re main intact. 2. Continue mobilization with physical therapy. 3. Appreciate input from internal medicine. 4. Anticipate discharge home in the next 24-48 hours.
--- NOTE | 2023-02-05 15:45 | P.PN ---
Subjective Progress Note Date: 02/04/23 77-year-old female who is seen and examined at the bedside following posterior lateral decompression and fusion performed Monday. She has been progressing somewhat slowly postoperatively. Her Mak catheter was discontinued yesterday. She has some urinary retention. She did require straight catheterization. They're currently planned to monitor with bladder scan imaging today. If she continues to have retention we will plan for reinsertion of Mak catheter. 02/04/2023 Patient is seen and evaluated in room at bedside; continues to complain of pain around surgical site; remains on pain control and reports adequacy; Mak catheter remains in place Patient is POD #3 status post minimally invasive decompression fusion L4 5 for severe spinal stenosis and spondylolisthesis steatosis. DJD with lower extremity radiculopathy -- Patient developed urinary retention postoperatively; Mak catheter in place -- Patient remains on IV pain medications; orthopedic surgery planning to transition as soon as patient is stable Objective - Vital Signs Vital signs: Vital Signs Temp 98.9 F 02/04/23 13:53 Pulse 92 02/04/23 13:53 Resp 16 02/04/23 13:53 BP 145/74 02/04/23 13:53 Pulse Ox 93 L 02/04/23 13:53 FiO2 Intake & Output 02/03/23 02/04/23 02/04/23 18:59 06:59 18:59 Output Total 2250 850 1000 Balance -2250 -850 -1000 Output: Urine 2250 850 1000 Uretheral (Mak) 600 Other: Voiding Method Bedside Commode Indwelling Catheter - Exam PHYSICAL EXAMINATION: GENERAL: The patient is alert and oriented x3, not in any acute distress. Well developed, well nourished. HEENT: Pupils are round and equally reacting to light. EOMI. No scleral icterus. No conjunctival pallor. Normocephalic, atraumatic. No pharyngeal erythema. No thyromegaly. CARDIOVASCULAR: S1 and S2 present. No murmurs, rubs, or gallops. PULMONARY: Chest is clear to auscultation, no wheezing or crackles. ABDOMEN: Soft, nontender, nondistended, normoactive bowel sounds. No palpable organomegaly. MUSCULOSKELETAL: No joint swelling or deformity. EXTREMITIES: No cyanosis, clubbing, or pedal edema. NEUROLOGICAL: Gross neurological examination did not reveal any focal deficits. SKIN: No rashes. - Labs CBC & Chem 7: 02/03/23 07:35 02/03/23 07:35 Assessment and Plan Assessment: Status post laminectomy and decompression at L4 5 for severe DJD Postoperative tachycardia Hypertension Hyperlipidemia Asthma History of coronary artery disease/OR -- Plan is to continue with current IV antibiotics - EKG completed reveals sinus tachycardia with frequent PVCs; cardiology is consulted for further recommendations - Continue with current home medications and monitor vital signs closely - Counseling done and need for DVT prophylaxis and incentive spirometry
--- NOTE | 2023-02-05 15:47 | P.PN ---
Subjective Progress Note Date: 02/05/23 77-year-old female who is seen and examined at the bedside following posterior lateral decompression and fusion performed Monday. She has been progressing somewhat slowly postoperatively. Her Mak catheter was discontinued yesterday. She has some urinary retention. She did require straight catheterization. They're currently planned to monitor with bladder scan imaging today. If she continues to have retention we will plan for reinsertion of Mak catheter. 02/04/2023 Patient is seen and evaluated in room at bedside; continues to complain of pain around surgical site; remains on pain control and reports adequacy; Mak catheter remains in place Patient is POD #3 status post minimally invasive decompression fusion L4 5 for severe spinal stenosis and spondylolisthesis steatosis. DJD with lower extremity radiculopathy -- Patient developed urinary retention postoperatively; Mak catheter in place -- Patient remains on IV pain medications; orthopedic surgery planning to transition as soon as patient is stable 02/05/2023 Patient is seen and evaluated in room at bedside; patient is status post minimally invasive decompression fusion L4 5 for her severe spinal stenosis with spondylolisthesis and degenerative disc disease with lower extremity radiculopathy. This is postoperative day #4. Reports feeling somewhat better today Vital signs are reviewed and remained temperature of 98.2, pulse 85, respiration 16 and blood pressure 126/69 - Patient is recommended to increase mobilization with physical therapy; continue with current pain control -- Orthopedic surgery on board and anticipating discharge home in next 24-48 hours Objective - Vital Signs Vital signs: Vital Signs Temp 98.2 F 02/05/23 06:52 Pulse 85 02/05/23 06:52 Resp 16 02/05/23 06:52 BP 126/69 02/05/23 06:52 Pulse Ox 92 L 02/05/23 08:38 FiO2 21 02/05/23 08:38 Intake & Output 02/04/23 02/05/23 02/05/23 18:59 06:59 18:59 Intake Total 600 400 Output Total 1350 1875 Balance -750 -1475 Intake: Intake, IV Titration 600 Amount Sodium Chloride 0.9% 1, 600 000 ml @ 75 mls/hr IV . [id number] [facility] Rx#:[id number] Oral 400 Output: Urine 1350 1875 Uretheral (Mak) 1875 Other: Voiding Method Indwelling Catheter Indwelling Catheter - Exam PHYSICAL EXAMINATION: GENERAL: The patient is alert and oriented x3, not in any acute distress. Well developed, well nourished. HEENT: Pupils are round and equally reacting to light. EOMI. No scleral icterus. No conjunctival pallor. Normocephalic, atraumatic. No pharyngeal erythema. No th yromegaly. CARDIOVASCULAR: S1 and S2 present. No murmurs, rubs, or gallops. PULMONARY: Chest is clear to auscultation, no wheezing or crackles. ABDOMEN: Soft, nontender, nondistended, normoactive bowel sounds. No palpable organomegaly. MUSCULOSKELETAL: No joint swelling or deformity. EXTREMITIES: No cyanosis, clubbing, or pedal edema. NEUROLOGICAL: Gross neurological examination did not reveal any focal deficits. SKIN: No rashes. - Labs CBC & Chem 7: 02/03/23 07:35 02/03/23 07:35 Labs: Microbiology - Last 24 Hours (Table) 02/02/23 11:47 Urine Culture - Final Urine,Voided Assessment and Plan Assessment: Status post laminectomy and decompression at L4 5 for severe DJD Postoperative tachycardia Hypertension Hyperlipidemia Asthma History of coronary artery disease/[place] -- Plan is to continue with current IV antibiotics - EKG completed reveals sinus tachycardia with frequent PVCs; cardiology is consulted for further recommendations - Continue with current home medications and monitor vital signs closely - Counseling done and need for DVT prophylaxis and incentive spirometry
[2023-02-05] MEDS: ATORVASTATIN 40 MG TAB PO SCH (20:24)
[2023-02-05] MEDS: LOSARTAN 25 MG TAB PO SCH (20:24)
[2023-02-05] MEDS: EZETIMIBE 10 MG TAB PO SCH (20:24)
[2023-02-05] MEDS: MONTELUKAST 10 MG TAB PO SCH (20:24)
[2023-02-06] MEDS: CYCLOBENZAPRINE 10 MG TAB PO PRN ×2 (01:18→07:35)
[2023-02-06] MEDS: HYDROcodone/APAP 5-325MG 1 EACH TAB PO PRN ×2 (01:18→17:37)
[2023-02-06] MEDS: SODIUM CHLORIDE 0.9% 1,000 ML IV SCH (02:53)
[2023-02-06] MEDS: LEVOTHYROXINE 25 MCG TAB PO SCH (05:46)
[2023-02-06] MEDS: traMADol 50 MG TAB PO PRN ×2 (05:46→21:09)
[2023-02-06] MEDS: PANTOPRAZOLE 40 MG TABLET PO SCH ×2 (07:34→17:35)
[2023-02-06] MEDS: CALCIUM CARBONATE 500 MG CHEWABLE PO SCH ×2 (07:34→21:05)
[2023-02-06] MEDS: SENNOSIDES-DOCUSATE SODIUM 1 EACH TAB PO SCH (07:35)
[2023-02-06] MEDS: CHOLECALCIFEROL 25 MCG (1000 IU) TABLET PO SCH (07:35)
[2023-02-06] MEDS: DOXYCYCLINE 100 MG CAP PO SCH ×2 (07:35→21:05)
[2023-02-06] MEDS: ASCORBIC ACID 500 MG TAB PO SCH ×2 (07:35→21:05)
[2023-02-06] MEDS: DILTIAZEM CD 180 MG CAP.ER.24H PO SCH (07:35)
[2023-02-06] MEDS: LACTOBACILLUS ACIDOPH & BULGAR 1 EACH PACKET PO SCH (07:36)
[2023-02-06] MEDS: KETOTIFEN 0.025% OPHTH DROPS 5 ML BTL BOTH EYES SCH (07:40)
--- NOTE | 2023-02-06 08:31 | P.PN ---
Progress Note - Text Progress Note Date: 02/06/23 Orthopedic Spine History of present illness: Patient is a pleasant 77-year-old female who is seen and examined at the bedside following posterior lateral decompression and fusion performed Monday. She continues to progress somewhat slowly postoperatively. Her Mak catheter was previously discontinued she was having some urinary retention. A Mak catheter was reinserted. This has remained intact over the weekend. It was not discontinued to see if she was able to void independently. She continues to have significant difficulty with mobilization with pain at the surgical sites of the lumbar spine. She states she is able to sit at the beds angel but has not been ambulating much. She is unsure if she would be at the discharged home. She is hoping to be discharged home but does not feel she is making adequate progress. She will consider discharge to a rehabilitation facility. She is utilizing a walker. She continues be seen and examined by medicine. Patient has been able to eat without significant difficulty but does not have much of an appetite. Physical Exam Lumbar Fusion: Status post surgical day number 5 Patient is awake, alert, and oriented 3 Vital signs stable Good chest excursion with deep inspiration and expiration Dorsiflexion, plantarflexion, and extensor hallucis longus positive sustained bilaterally No signs or symptoms of DVT; no calf pain; pneumatic cuffs intact bilateral lower extremities Optifoam dressings are clean, dry, and intact over the lumbar spine and right iliac crest; no erythema, purulence, or signs of infection Neurovascularly intact bilaterally lower extremities Assessment: Status post L4-5 minimally invasive posterior lateral decompression and fusion with transforaminal lumbar interbody fusion Low back pain Lumbar facet arthrosis Lower degenerative disc disease Lower extremity radiculopathy Neurogenic claudication L4-5 dynamic spondylolisthesis L4-5 spinal stenosis Coronary artery disease Fibromyalgia Hypertension Hyperlipidemia Postoperative urinary retention with Mak catheter reinserted Plan: 1. Ambulate as tolerated; work with Physical Therapy to increase mobilization. Patient may continue utilize walker to aid in ambulation. Patient does have a walker at home. 2. Continue pain control with oral medications; patient's last dose of IV Dilaudid was on 02/04/2023. We'll try to continue avoiding IV pain medications. MAPS was previously reviewed on 02/03/2023 with an Overall Overdose Risk Score of 260. An "Opiod Start Talking" Form has been signed and placed in the patie nt's chart. A prescription has been written for [place] 5 mg/325 mg, 1 tab every 6 hours as needed for acute pain, dispensed #28. Patient is also given a prescription for baclofen 10 mg 1 tab 3 times a day, as needed for muscle spasm, dispense #90. Medicines are sent to her regular pharmacy request of the patient. Narcotic pain medication may have to be handwritten patient is discharged to a [facility]. 3. Dressings to remain intact with Optifoam; patient may shower with dressings intact 4. Medical management can continue to manage patient for patient's other medical diagnoses 5. Patient has had some difficulty with urinary retention postoperatively following discontinuation of Mak catheter. She required straight catheterization. Mak catheter was placed and has been intact over the weekend. We will plan for this Mak catheter to be discontinued today. If patient is unable to void independently we'll plan for consultation with urology. 6. We will continue to follow the patient closely. Patient has been progressing slowly postoperatively. She states due to her slow progression, she will consider discharge to rehabilitation facility. Consultation has been placed with case management to discuss discharge options including a rehabilitation facility close to home. If patient is able to urinate and she is able to obtain approval for a rehabilitation facility, we may plan for discharge tomorrow, 02/07/2022. 7. Patient can follow-up with Doyle Akins PA-C or Dr. Dave Novoa at [facility] in 2-3 weeks following discharge
[2023-02-06] MEDS: TAMSULOSIN 0.4 MG CAP.ER.24H PO SCH (09:47)
[2023-02-06] MEDS: TIOTROPIUM 2.5 MCG INHALER INHALATION SCH (10:11)
[2023-02-06] MEDS: SYMBICORT 160-4.5 MCG INHALER INHALATION SCH ×2 (10:11→21:22)
[2023-02-06] MEDS ORDERED: bisacodyL 10 MG SUPP RECTAL STA (10:44)
--- NOTE | 2023-02-06 17:03 | P.PN ---
Subjective Progress Note Date: 02/06/23 This is a 77 year old female patient of Dr. Novoa, postoperative lumbar decompression and fusion. Patient is monitored on medical floor, discharge was held due to continued pain and difficulty ambulating and patient has authorization for D/C to subacute rehab that does tomorrow. Patient does want to discharge home if possible. Patient has not had a BM since surgery does have some abdominal distention with dullness to palpation, continues on bowel regimen and will be given a suppository today. If that does not work patient to be given the milk of magnesia. Patient had issues with urinary retention and IDC was reinserted and remained over the weekend. Patient is given flomax today and voiding trial in place. Sodium down to 127 and fluids are KVO now and will repeat labs in AM. 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 Review of Systems Constitutional: Denied any fatigue denied any fever. Cardio vascular: denied any chest pain, palpitations Gastrointestinal: denied any nausea, vomiting, diarrhea reports no BM, passing minimal gas. Pulmonary: Denied any shortness of breath cough Neurologic denied any new focal deficits All inpatient medications were reviewed and appropriate changes in these medications as dictated in the interval history and assessment and plan. PHYSICAL EXAMINATION: GENERAL: The patient is alert and oriented x3, not in any acute distress. Well developed, well nourished. HEENT: Pupils are round and equally reacting to light. EOMI. No scleral icterus. No conjunctival pallor. Normocephalic, atraumatic. No pharyngeal erythema. No thyromegaly. CARDIOVASCULAR: S1 and S2 present. No murmurs, rubs, or gallops. PULMONARY: Chest is clear to auscultation, no wheezing or crackles. ABDOMEN: Soft, nontender, distended dullness to percussion. normoactive bowel sounds. No palpable organomegaly. MUSCULOSKELETAL: No joint swelling or deformity. Postsurgical dressing intact deffered to primary. EXTREMITIES: No cyanosis, clubbing, or pedal edema. NEUROLOGICAL: Gross neurological examination did not reveal any focal deficits. SKIN: No rashes. 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 home with home care, insurance authorization does tomorrow. The impression and plan of care has been dictated by Rochelle Armendariz Nurse Practitioner as directed. Dr. Mamadou MD I have performed a history and physical examination and medical decision making of this patient, discussed the same with the dictator, and agree with the dictators assessment and plan as written, documented as a scribe. Based on total visit time, I have performed more than 50% of this visit. Objective - Vital Signs Vital signs: Vital Signs Temp 97.6 F 02/06/23 14:00 Pulse 79 02/06/23 14:00 Resp 18 02/06/23 14:00 BP 119/66 02/06/23 14:00 Pulse Ox 91 L 02/06/23 14:00 FiO2 21 02/05/23 08:38 Intake & Output 02/05/23 02/06/23 02/06/23 18:59 06:59 18:59 Intake Total 150 Output Total 1500 1800 Balance -1350 -1800 Intake: IV 150 Sodium Chloride 0.9% 1, 150 000 ml @ 75 mls/hr IV . [id number] [facility] Rx#:[id number] Output: Urine 1500 1800 Other: Voiding Method Indwelling Catheter Indwelling Catheter Indwelling Catheter # Voids 1 # Bowel Movements 0 1 - Labs CBC & Chem 7: 02/03/23 07:35 02/03/23 07:35 Assessment and Plan Time with Patient: Less than 30
[2023-02-06] MEDS: LOSARTAN 25 MG TAB PO SCH (21:05)
[2023-02-06] MEDS: EZETIMIBE 10 MG TAB PO SCH (21:05)
[2023-02-06] MEDS: ATORVASTATIN 40 MG TAB PO SCH (21:05)
[2023-02-06] MEDS: MONTELUKAST 10 MG TAB PO SCH (21:05)
[2023-02-07 05:53] LABS: African American GFR (CKD) >90 (>60 ml/min/1.73 sqM); Anion Gap 5 mmol/L; Blood Urea Nitrogen 12 mg/dL (7-17); Calcium 7.7 mg/dL (8.4-10.2); Carbon Dioxide 28 mmol/L (22-30); Chloride 98 mmol/L (98-107); Glucose 102 mg/dL (74-99); Non-African American GFR(CKD) >90 (>60 ml/min/1.73 sqM); Potassium 4.2 mmol/L (3.5-5.1); Sodium 131 mmol/L (137-145)
[2023-02-07] MEDS: LEVOTHYROXINE 25 MCG TAB PO SCH (06:00)
[2023-02-07] MEDS: HYDROcodone/APAP 5-325MG 1 EACH TAB PO PRN (06:00)
[2023-02-07] MEDS: PANTOPRAZOLE 40 MG TABLET PO SCH (06:48)
[2023-02-07 07:53] VITALS: BP 121/63; PULSE 77; RESP 16; TEMP 99.1
--- NOTE | 2023-02-07 08:25 | P.DS ---
Providers Date of admission: 02/06/23 08:01 Expected date of discharge: 02/07/23 Attending physician: Sae Novoa Consults: 02/01/23 17:49 Consult Physician Routine Consulting Provider: Carleen Case Consult Reason/Comments: medical management Do you want consulting provider notified?: Yes Primary care physician: Quita Ly - Discharge Diagnosis(es) (1) S/P lumbar fusion Current Visit: Yes Status: Acute (2) Low back pain Current Visit: Yes Status: Acute (3) Radiculopathy with lower extremity symptoms Current Visit: Yes Status: Acute (4) Lumbar facet arthropathy Current Visit: Yes Status: Acute (5) Neurogenic claudication due to lumbar spinal stenosis Current Visit: Yes Status: Acute (6) Lumbar degenerative disc disease Current Visit: Yes Status: Acute (7) Spondylolisthesis, lumbar region Current Visit: Yes Status: Acute (8) Fibromyalgia Current Visit: Yes Status: Acute (9) Hypertension Current Visit: Yes Status: Acute (10) Hyperlipidemia Current Visit: Yes Status: Acute (11) Coronary artery disease Current Visit: Yes Status: Acute (12) Postoperative urinary retention Current Visit: Yes Status: Acute Hospital Course: This is a pleasant 77-year-old female who presented with L4-5 dynamic spondylolisthesis and spinal stenosis, neurogenic claudication, lumbar degenerative disc disease, lumbar facet arthrosis, and low back pain with lower extremity radiculopathy who failed outpatient conservative therapy. She was admitted for an L4-5 minimally invasive posterior lateral decompression and fusion with transforaminal lumbar interbody fusion. Initially, she was progressing quite slowly. She is making significant improvement over the past 2 days. She is now able to ambulate to the restroom independently. She has better range of motion of her lower extremities. She has increased mobility. She is also having significant difficulty with urinary retention postoperatively. She did require straight catheterization and reinsertion of Mak catheter. Mak catheter was able to be discontinued yesterday. She's been able to void independently without difficulty since that time. She is very happy with her progress over the past 2 days. She so she be ready for discharge home today. She does not feel she needs discharge to rehabilitation facility. Her pain has been well-controlled with oral medications. We will plan to discharge the patient home today. We did discuss patient will need clearance by medicine prior to discharge home. Condition on day of discharge stable. Patient was cleared preoperatively for surgery by Dr. Ly. Patient currently denies any nausea, vomiting, fever, or chills. Patient is eating and voiding freely without difficulty. Dressings have been removed over the surgical sites at the lumbar spine and right iliac crest. Patient may shower without dressing is intact at this time. Patient should refrain from driving until at least after their first follow-up appointment in the office. Patient should avoid excessive bending, lifting, and twisting; no lifting greater than 10 pounds. Patient may utilize a walker to aid in ambulation as needed. Patient has a walker at home. She may also use a shower bench as needed, which she also has at home. MAPS was previously reviewed on 02/03/2023 with an Overall Overdose Risk Score of 260. An "Opiod Start Talking" Form has been signed and placed in the patient's chart. A prescription has been written for [place] 5 mg/325 mg, 1 tab every 6 hours as needed for acute pain, dispensed #28. Patient is also given a prescription for baclofen 10 mg 1 tab 3 times a day, as needed for muscle spasm, dispense #90. Prescriptions were sent to the patient's pharmacy per request of the patient. Patient should avoid tramadol while taking hydrocodone. Physical Exam on day of discharge: Patient is awake, alert, and oriented 3 Vital signs stable Good chest excursion with deep inspiration and expiration No signs or symptoms of DVT; no calf pain Extensor hallucis longus, plantarflexion, and dorsiflexion positive sustained bilateral lower extremities Surgical dressings are removed Incision sites remain clean, dry, and intact; no erythema, purulence, or signs of infection No significant bruising or swelling around the surgical sites No pain with palpation around the surgical sites the lumbar spine and right iliac crest Procedures: L4-5 minimally invasive posterior lateral decompression and fusion with transforaminal lumbar interbody fusion Patient Condition at Discharge: Stable Plan - Discharge Summary Discharge Rx Participant: Yes New Discharge Prescriptions: New HYDROcodone/APAP 5-325MG [Yukon 5] 1 each PO Q6HR PRN #28 tab PRN Reason: Pain Baclofen 10 mg PO TID PRN #90 tab PRN Reason: Spasms No Action Ascorbic Acid [Vitamin C] 500 mg PO BID Doxycycline Hyclate [Vibramycin] 100 mg PO BID Omeprazole 40 mg PO AC-BID Levothyroxine Sodium [Synthroid] 25 mcg PO DAILY Cyclobenzaprine [Flexeril] 10 mg PO TID PRN PRN Reason: Muscle Pain Atorvastatin Calcium [Lipitor] 40 mg PO HS Ketotifen Fumarate [Alaway] 1 drop BOTH EYES DAILY Ezetimibe [Zetia] 10 mg PO HS Fluticasone Nasal Midway [Flonase Nasal Midway] 1 spr EA NOSTRIL DAILY PRN PRN Reason: Allergy Symptoms diphenhydrAMINE [Benadryl] 50 mg PO BID PRN PRN Reason: Allergy Symptoms Tiotropium 18 Mcg/Puff [Spiriva] 2 puff INHALATION DAILY Acetaminophen [Tylenol Extra Strength] 1,000 mg PO DIRECTED PRN PRN Reason: Pain traMADol HCL [Ultram] 50 mg PO Q6HR PRN PRN Reason: Pain Docusate [Colace] 100 mg PO DAILY PRN PRN Reason: Constipation Ubidecarenone [Co Q-10] 100 mg PO DAILY L.acidoph,Paracasei, B.lactis [Probiotic] 1 cap PO DAILY Denosumab [Prolia] 60 mg SQ DIRECTED Gabapentin [Neurontin] 300 mg PO TID PRN PRN Reason: Pain dilTIAZem HCL [dilTIAZem HCL 24Hr ER (LA)] 360 mg PO DAILY Candesartan Cilexetil 4 mg PO HS Mometasone/Formoterol [Dulera 200 Mcg-5 Mcg Inhaler] 2 puff PO RT-BID Montelukast Sodium [Singulair] 10 mg PO HS Albuterol Sulfate [Proair Hfa] 2 puff INHALATION RT-QID PRN PRN Reason: Shortness Of Breath Cholecalciferol [Vitamin D3 (25 Mcg = 1000 Iu)] 25 mcg PO DAILY Calcium Carbonate [Calcium] 600 mg PO BID Discharge Medication List Albuterol Sulfate [Proair Hfa] 2 puff INHALATION RT-QID PRN 03/26/21 [History] Ascorbic Acid [Vitamin C] 500 mg PO BID 03/26/21 [History] Atorvastatin Calcium [Lipitor] 40 mg PO HS 03/26/21 [History] Candesartan Cilexetil 4 mg PO HS 03/26/21 [History] Cyclobenzaprine [Flexeril] 10 mg PO TID PRN 03/26/21 [History] Denosumab [Prolia] 60 mg SQ DIRECTED 03/26/21 [History] Docusate [Colace] 100 mg PO DAILY PRN 03/26/21 [History] Doxycycline Hyclate [Vibramycin] 100 mg PO BID 03/26/21 [History] Ezetimibe [Zetia] 10 mg PO HS 03/26/21 [History] Fluticasone Nasal Midway [Flonase Nasal Midway] 1 spr EA NOSTRIL DAILY PRN 03/26/21 [History] Gabapentin [Neurontin] 300 mg PO TID PRN 03/26/21 [History] Ketotifen Fumarate [Alaway] 1 drop BOTH EYES DAILY 03/26/21 [History] L.acidoph,Paracasei, B.lactis [Probiotic] 1 cap PO DAILY 03/26/21 [History] Levothyroxine Sodium [Synthroid] 25 mcg PO DAILY 03/26/21 [History] Mometasone/Formoterol [Dulera 200 Mcg-5 Mcg Inhaler] 2 puff PO RT-BID 03/26/21 [History] Montelukast Sodium [Singulair] 10 mg PO HS 03/26/21 [History] Omeprazole 40 mg PO AC-BID 03/26/21 [History] Ubidecarenone [Co Q-10] 100 mg PO DAILY 03/26/21 [History] dilTIAZem HCL [dilTIAZem HCL 24Hr ER (LA)] 360 mg PO DAILY 03/26/21 [History] Cholecalciferol [Vitamin D3 (25 Mcg = 1000 Iu)] 25 mcg PO DAILY 12/08/22 [History] diphenhydrAMINE [Benadryl] 50 mg PO BID PRN 12/08/22 [History] Acetaminophen [Tylenol Extra Strength] 1,000 mg PO DIRECTED PRN 01/27/23 [History] Calcium Carbonate [Calcium] 600 mg PO BID 01/27/23 [History] Tiotropium 18 Mcg/Puff [Spiriva] 2 puff INHALATION DAILY 01/27/23 [History] traMADol HCL [Ultram] 50 mg PO Q6HR PRN 01/27/23 [History] Baclofen 10 mg PO TID PRN #90 tab 02/03/23 [Rx] HYDROcodone/APAP 5-325MG [Y[place]on 5] 1 each PO Q6HR PRN #28 tab 02/03/23 [Rx] Follow up Appointment(s)/Referral(s): Doyle Akins PAC [PHYSICIAN INVOICING SPECIALIST] - 02/13/23 1:15 pm (Patient may follow-up with Doyle Akins PA-C or Dr. Dave Novoa at [facility] in 2-3 weeks following discharge. ) Activity/Diet/Wound Care/Special Instructions: 1. Patient may shower without dressings intact at that time. 2. Patient should refrain from driving until at least after their first follow- up appointment in the office. 3. Patient should avoid excessive bending, twisting, lifting; avoid overhead lifting; no lifting greater than 10 pounds 4. Take medications as prescribed 5. Patient may use walker to aid in ambulation as needed 6. Patient may use shower bench as needed to aid in bathing 7. Patient should avoid anti-inflammatory medications over the next 6 weeks postoperatively 8. Do not soak in tub Discharge Disposition: HOME SELF-CARE
[2023-02-07] MEDS: CHOLECALCIFEROL 25 MCG (1000 IU) TABLET PO SCH (08:26)
[2023-02-07] MEDS: DOXYCYCLINE 100 MG CAP PO SCH (08:26)
[2023-02-07] MEDS: LACTOBACILLUS ACIDOPH & BULGAR 1 EACH PACKET PO SCH (08:26)
[2023-02-07] MEDS: DILTIAZEM CD 180 MG CAP.ER.24H PO SCH (08:26)
[2023-02-07] MEDS: KETOTIFEN 0.025% OPHTH DROPS 5 ML BTL BOTH EYES SCH (08:27)
[2023-02-07] MEDS: ASCORBIC ACID 500 MG TAB PO SCH (08:27)
[2023-02-07] MEDS: CALCIUM CARBONATE 500 MG CHEWABLE PO SCH (08:27)
[2023-02-07] MEDS: SENNOSIDES-DOCUSATE SODIUM 1 EACH TAB PO SCH (08:27)
[2023-02-07] MEDS: TAMSULOSIN 0.4 MG CAP.ER.24H PO SCH (08:27)
[2023-02-07] MEDS: TIOTROPIUM 2.5 MCG INHALER INHALATION SCH (08:51)
[2023-02-07] MEDS: SYMBICORT 160-4.5 MCG INHALER INHALATION SCH (08:51)
--- NOTE | 2023-02-07 09:48 | XR ---
EXAMINATION TYPE: XR chest 2V DATE OF EXAM: 02/07/2023 9:40 AM COMPARISON: Chest radiographs from 01/24/2023 TECHNIQUE: XR chest 2V Frontal and lateral views of the chest. CLINICAL INDICATION:Female, 77 years old with history of fever; FINDINGS: Lungs/Pleura: Trace left pleural effusion. No focal consolidation or pneumothorax. Pulmonary vascularity: Unremarkable. Heart/mediastinum: Cardiomediastinal silhouette is unremarkable. Two lead cardiac conduction device o verlying the left hemithorax with lead tips projecting over the right ventricle and right atrium. Musculoskeletal: No acute osseous pathology. Cervical fusion hardware. Left shoulder arthropathy. IMPRESSION: Trace left pleural effusion.
--- NOTE | 2023-02-07 15:18 | P.PN ---
Subjective Progress Note Date: 02/07/23 This is a 77 year old female patient of Dr. Novoa, postoperative lumbar decompression and fusion. Patient is monitored on medical floor, discharge was held due to continued pain and difficulty ambulating and patient has authorization for D/C to subacute rehab that does tomorrow. Patient does want to discharge home if possible. Patient has not had a BM since surgery does have some abdominal distention with dullness to palpation, continues on bowel regimen and will be given a suppository today. If that does not work patient to be given the milk of magnesia. Patient had issues with urinary retention and IDC was reinserted and remained over the weekend. Patient is given flomax today and voiding trial in place. Sodium down to 127 and fluids are KVO now and will repeat labs in AM. 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 02/07/2023 Patient is evaluated today sitting up in bed. Reports improved surgical pain. Patient had BM x 2 and indwelling catheter remains out patient has passed voiding trial. Did have elevated fever overnight likely this is postoperative atelectasis patient is using incentive spirometer a chest xray was done showing trace left pleural effusion. Patients sodium improved to 131 after stopping the IV fluids suspect has some degree of diastolic dysfunction given patients age. Patient is on room and no reports of shortness of breath or chest pain. Tolerating diet and has been increasing activity. Cleared medically for discharge home today. Repeat labs in 2 to 3 days. Review of Systems Constitutional: Denied any fatigue denied any fever. Cardio vascular: denied any chest pain, palpitations Gastrointestinal: denied any nausea, vomiting, Pulmonary: Denied any shortness of breath cough Neurologic denied any new focal deficits All inpatient medications were reviewed and appropriate changes in these medications as dictated in the interval history and assessment and plan. PHYSICAL EXAMINATION: GENERAL: The patient is alert and oriented x3, not in any acute distress. Well developed, well nourished. HEENT: Pupils are round and equally reacting to light. EOMI. No scleral icterus. No conjunctival pallor. Normocephalic, atraumatic. No pharyngeal erythema. No thyromegaly. CARDIOVASCULAR: S1 and S2 present. No murmurs, rubs, or gallops. PULMONARY: Chest is clear to auscultation, no wheezing or crackles. ABDOMEN: Soft, nontender, nondistended . normoactive bowel sounds. No palpable organomegaly. MUSCULOSKELETAL: No joint swelling or deformity. Postsurgical dressing intact deffered to primary. EXTREMITIES: No cyanosis, clubbing, or pedal edema. NEUROLOGICAL: Gross neurological examination did not reveal any focal deficits. SKIN: No rashes. Assessment Status post laminectomy and decompression at L4 5 for severe DJD Postoperative tachycardia resolved Constipation on bowel regimen resolved Urinary retention, postoperative resolved Hyponatremia likely mild volume overload improved off IV fluids with chest xray showing trace left pleural effusion. Hypertension Hyperlipidemia Asthma History of coronary artery disease/UT GI prophylaxis DVT prophylaxis as per primary Full Code Plan Continue on bowel regimen and encourage patient to increase activity level. Recommend to continue doxycycline for 2 days on discharge to complete 7 days of antibiotic therapy empirically. Fluids were stopped and sodium improved from 127 to 131 and patient recommended to repeat BMP in 2 to 3 days Continue incentive spirometer on discharge. Medically cleared to discharge home with home care services and follow up with PCP and orthopedics. The impression and plan of care has been dictated by Rochelle Armendariz, Nurse Practitioner as directed. Dr. Mamadou MD I have performed a history and physical examination and medical decision making of this patient, discussed the same with the dictator, and agree with the dictators assessment and plan as written, documented as a scribe. Based on total visit time, I have performed more than 50% of this visit. Objective - Vital Signs Vital signs: Vital Signs Temp 99.1 F 02/07/23 07:20 Pulse 77 02/07/23 07:20 Resp 16 02/07/23 07:20 BP 121/63 02/07/23 07:20 Pulse Ox 97 02/07/23 08:55 FiO2 21 02/05/23 08:38 Intake & Output 02/06/23 02/07/23 02/07/23 18:59 06:59 18:59 Output Total 2200 Balance -2200 Output: Urine 2200 Other: Voiding Method Indwelling Catheter # Voids 3 1 # Bowel Movements 1 - Labs CBC & Chem 7: 02/03/23 07:35 02/07/23 04:51 Labs: Abnormal Lab Results - Last 24 Hours (Table) 02/07/23 Range/Units 04:51 Sodium 131 L (137-145) mmol/L Creatinine 0.49 L (0.52-1.04) mg/dL Glucose 102 H (74-99) mg/dL Calcium 7.7 L (8.4-10.2) mg/dL Assessment and Plan Time with Patient: Less than 30
--- NOTE | 2023-02-09 16:11 | CDI ---
Documentation Clarification Form Date: 02/09/2023 04:09:04 PM From: Aurea Watts RN, CCDS Email: [email or web address] Admit Date: 02/06/2023 08:01:00 AM Patient Name: Anai Duckworth Visit Number: [id number] Discharge Date: 02/07/2023 10:45:00 AM ATTENTION: The Clinical Documentation Specialists (CDI) and [facility] Coding Staff appreciate your assistance in clarifying documentation. Please respond to the clarification below the line at the bottom and electronically sign. The CDI & [facility] Coding staff will review the response and follow-up if needed. Please note: Queries are made part of the Legal Health Record. If you have any questions, please contact the author of this message via ITS. Dr. Syl Cedillo Postop tachycardia is documented in the progress notes and patient had a spinal fusion. Additional clarification is requested regarding the relationship, if any, that exists between the diagnosis and the procedure. Patients Admitting Diagnosis: DJD, spondylolisthesis and spinal stenosis L4-5 Post-Operative Diagnosis: same Procedure performed: laminectomy, 360 degree fusion, discectomy for decompression L4-5 History/Risk Factors: CAD, asthma, CAD, HTN, HLD, [place] Clinical Indicators: 02/02 IM Consult: "Tachycardia, postoperative." 02/02 Troponins: <0.012 x2 02/01-02/02 HR: [id number] 02/02 EKG: Sinus tachycardia 02/06 IM: "Postoperative tachycardia resolved." Treatment: Monitor troponins, EKG, IM consult as above What relationship, if any, exists between the diagnosis of postop tachycardia and the procedure: [ ] Postop tachycardia is a complication of surgical procedure [ x ] Postop tachycardia is related to patients co-morbid conditions & not a complication of the procedure [ ] Other please specify ____ [ ] Unable to determine MTDD
--- NOTE | 2023-02-09 16:25 | CDI ---
Documentation Clarification Form Date: 02/09/2023 04:12:04 PM From: Aurea Watts RN, CCDS Email: [email or web address] Admit Date: 02/06/2023 08:01:00 AM Patient Name: Anai Duckworth Visit Number: [id number] Discharge Date: 02/07/2023 10:45:00 AM ATTENTION: The Clinical Documentation Specialists (CDI) and [facility] Coding Staff appreciate your assistance in clarifying documentation. Please respond to the clarification below the line at the bottom and electronically sign. The CDI & [facility] Coding staff will review the response and follow-up if needed. Please note: Queries are made part of the Legal Health Record. If you have any questions, please contact the author of this message via ITS. Dr. Syl Cedillo Postop urinary retention is documented in the progress notes and patient had a spinal fusion. Additional clarification is requested regarding the relationship, if any, that exists between the diagnosis and the procedure. Patients Admitting Diagnosis: DJD, spondylolisthesis and spinal stenosis L4-5 Post-Operative Diagnosis: same Procedure performed: laminectomy, 360 degree fusion, discectomy for decompression L4-5 History/Risk Factors: CAD, asthma, CAD, HTN, HLD, [place] Clinical Indicators: 02/02 Nursing Note: " Bladder scan performed and 291 return. She does relay that "Sometimes gabapentin does this to me." Discussed with her avoiding prn gabapentin for the time until able to void. 02/03 Ortho: patient has had some difficulty with urinary retention postoperatively following discontinuation of rao catheter. She did require straight catheterization yesterday. If the patient continues to have urinary retention well plan for reinsertion of Rao catheter. 02/06 IM: "Patient is started on Flomax and voiding trial today. Treatment: Flomax 0.4mg po before breakfast daily, straight cath, indwelling Rao cath was reinserted and remained over the weekend. What relationship, if any, exists between the diagnosis of postop urinary retention and the procedure: [ ] Postop urinary retention is a complication of surgical procedure [ x ] Postop urinary retention is related to patients co-morbid conditions & not a complication of the procedure [ ] Other please specify ____ [ ] Unable to determine MTDD
== END 2023-02-07 10:45 | disposition home health service (06) | DRG 454 ==
LOC: OR 10:37 → 4SSUR 15:15 → OR 02-02 07:24 → OBSVTOIN 02-06 08:01
PROVIDERS: ADMIT Orthopaedic Surgery Orthopaedic Surgery of the Spine; ATTEND Orthopaedic Surgery Orthopaedic Surgery of the Spine
PROC: 01NB0ZZ Release Lumbar Nerve, Open Approach (ICD-10-PCS; principal; 2023-02-01 12:15)
PROC: 8E0WXBG Computer Assisted Procedure of Trunk Region, With Computerized Tomography (ICD-10-PCS; principal; 2023-02-01 12:15)
PROC: 0SG00AJ Fusion of Lumbar Vertebral Joint with Interbody Fusion Device, Posterior Approach, Anterior Column, Open Approach (ICD-10-PCS; principal; 2023-02-01 12:15)
PROC: 0ST20ZZ Resection of Lumbar Vertebral Disc, Open Approach (ICD-10-PCS; principal; 2023-02-01 12:15)
PROC: 0SG0071 Fusion of Lumbar Vertebral Joint with Autologous Tissue Substitute, Posterior Approach, Posterior Column, Open Approach (ICD-10-PCS; principal; 2023-02-01 12:15)
DX: M43.16 Spondylolisthesis, lumbar region (principal); E22.2 Syndrome of inappropriate secretion of antidiuretic hormone; J98.11 Atelectasis; R00.0 Tachycardia, unspecified; M48.062 Spinal stenosis, lumbar region with neurogenic claudication; M51.16 Intervertebral disc disorders with radiculopathy, lumbar region; M79.7 Fibromyalgia; I10 Essential (primary) hypertension; E78.5 Hyperlipidemia, unspecified; G89.18 Other acute postprocedural pain; R33.9 Retention of urine, unspecified; K59.00 Constipation, unspecified; I25.10 Atherosclerotic heart disease of native coronary artery without angina pectoris; K21.9 Gastro-esophageal reflux disease without esophagitis; M47.26 Other spondylosis with radiculopathy, lumbar region; J45.909 Unspecified asthma, uncomplicated; I49.3 Ventricular premature depolarization; I25.2 Old myocardial infarction; Z88.1 Allergy status to other antibiotic agents; Z88.5 Allergy status to narcotic agent; Z88.2 Allergy status to sulfonamides
CPT/HCPCS: 71046; 72100; 80048; 81001; 83735; 84484; 85025; 86850; 86900; 86901; 87086; 94640; 94760

== ENCOUNTER → 2023-08-16 | Outpatient (CLI) | payer MEDICARE ==
[2023-08-16 15:17] LABS: ALT 22 U/L (8-44); AST 20 U/L (13-35); Chol/HDL Ratio 1.75 Ratio; LDL Cholesterol,Calculated 63.5 mg/dL (0.0-131.0)
== END | disposition home or self-care (01) ==
LOC: LABWHC1 08:23
PROVIDERS: ATTEND Internal Medicine Cardiovascular Disease
DX: E78.2 Mixed hyperlipidemia (principal)
CPT/HCPCS: 36415; 80061; 84450; 84460

== ENCOUNTER 2024-01-03 03:59 | Emergency (ER) | payer MEDICARE ==
--- NOTE | 2024-01-03 04:19 | ED ---
Abdominal Pain HPI - General Source: patient, RN notes reviewed, old records reviewed Mode of arrival: ambulatory Limitations: no limitations - History of Present Illness MD Complaint: abdominal pain, other (Blood in the stool) -: days(s) Radiation: LLQ Migration to: suprapubic Severity: moderate Severity scale (1-10): 6 Quality: fullness, sharp Consistency: constant Improves With: nothing <Jarett Sheffield - Last Filed: 01/03/24 04:58> <Sean Hill - Last Filed: 01/03/24 08:15> - General Chief Complaint: Abdominal Pain Stated Complaint: rectal bleeding abd pain left side Time Seen by Provider: 01/03/24 04:18 - History of Present Illness Initial Comments: This is a 78-year-old female to the ER today. This patient presents today for evaluation regards to left-sided left lower quadrant abdominal pain with nausea no vomiting. Severe pain with bloody stools. Bloody diarrhea. Patient has history of colonoscopy about a year ago with no abnormalities. No fevers (Jarett Sheffield) - Related Data Home Medications Medication Instructions Recorded Confirmed Albuterol Sulfate [Proair Hfa] 2 puff INHALATION RT-QID PRN 03/26/21 02/01/23 Ascorbic Acid [Vitamin C] 500 mg PO BID 03/26/21 02/01/23 Atorvastatin Calcium [Lipitor] 40 mg PO HS 03/26/21 02/01/23 Candesartan Cilexetil 4 mg PO HS 03/26/21 02/01/23 Denosumab [Prolia] 60 mg SQ DIRECTED 03/26/21 02/01/23 Docusate [Colace] 100 mg PO DAILY PRN 03/26/21 02/01/23 Ezetimibe [Zetia] 10 mg PO HS 03/26/21 02/01/23 Fluticasone Nasal Hamer [Flonase 1 spr EA NOSTRIL DAILY PRN 03/26/21 02/01/23 Nasal Hamer] Gabapentin [Neurontin] 300 mg PO TID PRN 03/26/21 02/01/23 Ketotifen Fumarate [Alaway] 1 drop BOTH EYES DAILY 03/26/21 02/01/23 L.acidoph,Paracasei, B.lactis 1 cap PO DAILY 03/26/21 02/01/23 [Probiotic] Levothyroxine Sodium [Synthroid] 25 mcg PO DAILY 03/26/21 02/01/23 Mometasone/Formoterol [Dulera 200 2 puff PO RT-BID 03/26/21 02/01/23 Mcg-5 Mcg Inhaler] Montelukast Sodium [Singulair] 10 mg PO HS 03/26/21 02/01/23 Omeprazole 40 mg PO AC-BID 03/26/21 02/01/23 Ubidecarenone [Co Q-10] 100 mg PO DAILY 03/26/21 02/01/23 dilTIAZem HCL [dilTIAZem HCL 24Hr 360 mg PO DAILY 03/26/21 02/01/23 ER ([place])] Cholecalciferol [Vitamin D3 (25 25 mcg PO DAILY 12/08/22 02/01/23 Mcg = 1000 Iu)] diphenhydrAMINE [Benadryl] 50 mg PO BID PRN 12/08/22 02/01/23 Acetaminophen [Tylenol Extra 1,000 mg PO DIRECTED PRN 01/27/23 02/01/23 Strength] Calcium Carbonate [Calcium] 600 mg PO BID 01/27/23 02/01/23 Tiotropium 18 Mcg/Puff [Spiriva] 2 puff INHALATION DAILY 01/27/23 02/01/23 traMADol HCL [Ultram] 50 mg PO Q6HR PRN 01/27/23 02/01/23 Previous Rx's Medication Instructions Recorded Baclofen 10 mg PO TID PRN #90 tab 02/03/23 HYDROcodone/APAP 5-325MG [[place] 5] 1 each PO Q6HR PRN #28 tab 02/03/23 Doxycycline [Vibramycin] 100 mg PO BID 2 Days #4 cap 02/07/23 Sennosides-Docusate Sodium 1 each PO DAILY PRN #20 tab 02/07/23 [Senokot-S] Moxifloxacin HCl [Avelox] 400 mg PO DAILY 10 Days #10 tab 01/03/24 Allergies Allergy/AdvReac Type Severity Reaction Status Date / Time ceftriaxone [From Rocephin] Allergy rash/hives/allergy Verified 01/03/24 04:03 symptoms meperidine [From Demerol] Allergy Rash/Hives/allergy Verified 01/03/24 04:03 symptoms, vomiting Sulfa (Sulfonamide Allergy Rash/Hives/allergy Verified 01/03/24 04:03 Antibiotics) symptoms vancomycin Allergy Swelling Verified 01/03/24 04:03 Review of Systems ROS Other: All systems not noted in ROS Statement are negative. <Jarett Sheffield - Last Filed: 01/03/24 04:58> ROS Other: All systems not noted in ROS Statement are negative. <Sean Hill - Last Filed: 01/03/24 08:15> ROS Statement: Those systems with pertinent positive or pertinent negative responses have been documented in the HPI. Past Medical History Past Medical History: Coronary Artery Disease (CAD), Hypertension, Myocardial Infarction (HI) Additional Past Medical History / Comment(s): sciatica Last Myocardial Infarction Date:: 1999 History of Any Multi-Drug Resistant Organisms: None Reported Past Surgical History: Appendectomy, Back Surgery, Heart Catheterization, Hysterectomy, Joint Replacement, Orthopedic Surgery, Pacemaker, Tonsillectomy, Tubal Ligation Additional Past Surgical History / Comment(s): carpal tunnel, cataracts, cornea transplant, Left knee replacements x 2 Past Anesthesia/Blood Transfusion Reactions: No Reported Reaction, Motion Sickness Additional Past Anesthesia/Blood Transfusion Reaction / Comment(s): hx of blood transfusions-denies reaction Type of Cardiac Device: Unknown Device Placement Date:: 2011 Past Psychological History: No Psychological Hx Reported Smoking Status: Never smoker Past Alcohol Use History: None Reported Past Drug Use History: None Reported - Past Family History Father Family Medical History: Cancer Additional Family Medical History / Comment(s): skin cancer Mother Family Medical History: Coronary Artery Disease (CAD) Additional Family Medical History / Comment(s): skin cancer Brother(s) Family Medical History: Cancer Additional Family Medical History / Comment(s): throat cancer <Jarett Sheffield - Last Filed: 01/03/24 04:58> General Exam Limitations: no limitations General appearance: alert, in no apparent distress Head exam: Present: atraumatic, normocephalic, normal inspection Eye exam: Present: normal appearance, PERRL, EOMI. Absent: scleral icterus, conjunctival injection, periorbital swelling ENT exam: Present: normal exam, mucous membranes moist Neck exam: Present: normal inspection. Absent: tenderness, meningismus, lymphadenopathy Respiratory exam: Present: normal lung sounds bilaterally. Absent: respiratory distress, wheezes, rales, rhonchi, stridor Cardiovascular Exam: Present: regular rate, normal rhythm, normal heart sounds. Absent: systolic murmur, diastolic murmur, rubs, gallop, clicks GI/Abdominal exam: Present: soft, normal bowel sounds. Absent: distended, tenderness, guarding, rebound, rigid Extremities exam: Present: normal inspection, full ROM, normal capillary refill. Absent: tenderness, pedal edema, joint swelling, calf tenderness Back exam: Present: normal inspection Neurological exam: Present: alert, oriented X3, CN II-XII intact Psychiatric exam: Present: normal affect, normal mood Skin exam: Present: warm, dry, intact, normal color. Absent: rash <Jarett Sheffield - Last Filed: 01/03/24 04:58> Course <Jarett Sheffield - Last Filed: 01/03/24 04:58> Vital Signs 01/03/24 01/03/24 01/03/24 04:01 04:46 05:41 Temperature 98.2 F Pulse Rate 107 H 100 94 Respiratory 18 19 16 Rate Blood Pressure 134/81 126/77 142/66 O2 Sat by Pulse 97 98 96 Oximetry 01/03/24 06:59 Temperature Pulse Rate 98 Respiratory 19 Rate Blood Pressure 142/80 O2 Sat by Pulse 95 Oximetry - Reevaluation(s) Reevaluation #1: 01/03/24 04:59 Medical records reviewed (Jarett Sheffield) Reevaluation #2: 01/03/24 05:00 Patient symptoms are improved (Jarett Sheffield) Reevaluation #4: Was pt. sent in by a medical professional or institution (, PA, HISTORIAN RESEARCH ASSISTANT, urgent care, hospital, or shelter...) When possible be specific @ -no Did you speak to anyone other than the patient for history (EMS, parent, family, police, friend...)? What history was obtained from this source @ -no Did you review nursing and triage notes (agree or disagree)? Why? @ -agree Are old charts reviewed (outside hosp., previous admission, EMS record, old EKG, old radiological studies, urgent care reports/EKG's, shelter records)? Report findings @ -yes Differential Diagnosis (chest pain, altered mental status, abdominal pain women, abdominal pain men, vaginal bleeding, weakness, fever, dyspnea, syncope, head ache, dizziness, GI bleed, back pain, seizure, CVA, palpatations, mental health, musculoskeletal)? @ -prior EKG interpreted by me (3pts min.). @ -yes X-rays interpreted by me (1pt min.). @ -yes negative for acute disease CT interpreted by me (1pt min.). @ -no U/S interpreted by me (1pt. min.). @ -no What testing was considered but not performed or refused? (CT, X-rays, U/S, labs)? Why? @ -none What meds were considered but not given or refused? Why? @ -none Did you discuss the management of the patient with other professionals (professionals i.e. , PA, HISTORIAN RESEARCH ASSISTANT, lab, RT, psych nurse, social media community manager, section weaver, teacher, operations officer afloat, trimming caser)? Give summary @ -no Was smoking cessation discussed for >3mins.? @ -no Was critical care preformed (if so, how long)? @ -no Were there social determinants of health that impacted care today? How? (Homelessness, low income, unemployed, alcoholism, drug addiction, transportation, low edu. Level, literacy, decrease access to med. care, shelter, rehab)? @ -none Was there de-escalation of care discussed even if they declined (Discuss DNR or withdrawal of care, Hospice)? DNR status @ -no What co-morbidities impacted this encounter? (DM, HTN, Smoking, COPD, CAD, Cancer, CVA, ARF, Chemo, Hep., AIDS, mental health diagnosis, sleep apnea, mor bid obesity)? @ -none Was patient admitted / discharged? Hospital course, mention meds given and ro [place], prescriptions, significant lab abnormalities, going to OR and other pertinent info. @ - Undiagnosed new problem with uncertain prognosis? @ -no Drug Therapy requiring intensive monitoring for toxicity (Heparin, Nitro, Insulin, Cardizem)? @ -no Were any procedures done? @ -no Diagnosis/symptom? @ - Acute, or Chronic, or Acute on Chronic? @ -Acute Uncomplicated (without systemic symptoms) or Complicated (systemic symptoms)? @ -Complicated Side effects of treatment? @ -no Exacerbation, Progression, or Severe Exacerbation? @ -exacerbation Poses a threat to life or bodily function? How? (Chest pain, [place], HI, pneumonia, PE, COPD, DKA, ARF, appy, cholecystitis, CVA, Diverticulitis, Homicidal, Suicidal, threat to staff... and all critical care pts) @ -yes (Jarett Sheffield) Reevaluation #5: Differential GI Bleed: Esophageal varices, aortoenteric fistula, Nicole-Romo, gastritis, peptic ulcer disease, diverticulosis, inflammatory bowel disease, hemorrhoids, fissure, colitis, malignancy, Meckels diverticulum, this is not meant to be an all- inclusive list. Differential Abdominal Pain Women: Appendicitis, Cholecystitis, diverticulosis, ischemic bowel, pancreatitis, hepatitis, UTI, gastroenteritis, AAA, incarcerated hernia, bowel obstruction, constipation, inflammatory bowel, hepatitis, peptic ulcer disease, splenic infarction, perforated viscus, vulvitis, ovarian torsion, PID, kidney stone, placenta abruption, this is not meant to be an all-inclusive list (Jarett Sheffield) Medical Decision Making - Lab Data Result diagrams: 01/03/24 04:38 01/03/24 04:38 <Sean Hill - Last Filed: 01/03/24 08:15> - Medical Decision Making Patient care signed out to me by previous shift physician, Dr. Bruner. Briefly, patient is a 78-year-old female with history of diverticulitis. Plan at signout was to follow-up with pending imaging studies. Laboratory evaluation obtained found to be within acceptable limits. CT scan of the abdomen pelvis resulted. CT shows colitis there does appear to be some diverticular changes. This point is not entirely clear if radiographically this imaging studies suggest diverticulitis. Nonetheless there is inflammatory and diverticular changes. There is suspicion of diverticulitis. Patient started on antibiotics with discharge. Patient agreeable with discharge. She is well-appearing at the bedside. Advised follow-up with GI. (Sean Hill) - Lab Data Lab Results 01/03/24 01/03/24 01/03/24 Range/Units 04:38 04:38 04:38 WBC 11.3 H (3.8-10.6) k/uL RBC 4.56 (3.80-5.40) m/uL Hgb 13.2 (11.4-16.0) gm/dL Hct 39.3 (34.0-46.0) % MCV 86.2 (80.0-100.0) fL MCH 29.0 (25.0-35.0) pg MCHC 33.7 (31.0-37.0) g/dL RDW 14.4 (11.5-15.5) % Plt Count 291 (150-450) k/uL MPV 7.9 Neutrophils % 82 % Lymphocytes % 7 % Monocytes % 5 % Eosinophils % 5 % Basophils % 0 % Neutrophils # 9.3 H (1.3-7.7) k/uL Lymphocytes # 0.8 L (1.0-4.8) k/uL Monocytes # 0.6 (0-1.0) k/uL Eosinophils # 0.5 (0-0.7) k/uL Basophils # 0.0 (0-0.2) k/uL PT 10.1 (10.0-12.5) sec INR 0.9 (<1.2) APTT 22.2 (22.0-30.0) sec Sodium 130 L (137-145) mmol/L Potassium 3.5 (3.5-5.1) mmol/L Chloride 98 (98-107) mmol/L Carbon Dioxide 24 (22-30) mmol/L Anion Gap 8 mmol/L BUN 12 (7-17) mg/dL Creatinine 0.71 (0.52-1.04) mg/dL Est GFR (CKD-EPI)AfAm >90 (>60 ml/min/1.73 sqM) Est GFR (CKD-EPI)NonAf 83 (>60 ml/min/1.73 sqM) Glucose 105 H (74-99) mg/dL Plasma Lactic Acid Maycol (0.7-2.0) mmol/L Calcium 8.9 (8.4-10.2) mg/dL Total Bilirubin 0.8 (0.2-1.3) mg/dL AST 25 (14-36) U/L ALT 19 (4-34) U/L Alkaline Phosphatase 68 (38-126) U/L Total Protein 6.0 L (6.3-8.2) g/dL Albumin 3.6 (3.5-5.0) g/dL Amylase 62 (30-110) U/L Lipase 46 (23-300) U/L 01/03/24 Range/Units 04:38 WBC (3.8-10.6) k/uL RBC (3.80-5.40) m/uL Hgb (11.4-16.0) gm/dL Hct (34.0-46.0) % MCV (80.0-100.0) fL MCH (25.0-35.0) pg MCHC (31.0-37.0) g/dL RDW (11.5-15.5) % Plt Count (150-450) k/uL MPV Neutrophils % % Lymphocytes % % Monocytes % % Eosinophils % % Basophils % % Neutrophils # (1.3-7.7) k/uL Lymphocytes # (1.0-4.8) k/uL Monocytes # (0-1.0) k/uL Eosinophils # (0-0.7) k/uL Basophils # (0-0.2) k/uL PT (10.0-12.5) sec INR (<1.2) APTT (22.0-30.0) sec Sodium (137-145) mmol/L Potassium (3.5-5.1) mmol/L Chloride (98-107) mmol/L Carbon Dioxide (22-30) mmol/L Anion Gap mmol/L BUN (7-17) mg/dL Creatinine (0.52-1.04) mg/dL Est GFR (CKD-EPI)AfAm (>60 ml/min/1.73 sqM) Est GFR (CKD-EPI)NonAf (>60 ml/min/1.73 sqM) Glucose (74-99) mg/dL Plasma Lactic Acid Maycol 0.8 (0.7-2.0) mmol/L Calcium (8.4-10.2) mg/dL Total Bilirubin (0.2-1.3) mg/dL AST (14-36) U/L ALT (4-34) U/L Alkaline Phosphatase (38-126) U/L Total Protein (6.3-8.2) g/dL Albumin (3.5-5.0) g/dL Amylase (30-110) U/L Lipase (23-300) U/L Disposition <Jarett Sheffield - Last Filed: 01/03/24 04:58> Is patient prescribed a controlled substance at d/c from ED?: No Time of Disposition: 08:15 <Sean Hill - Last Filed: 01/03/24 08:15> Clinical Impression: Colitis Disposition: HOME SELF-CARE Condition: Good Prescriptions: Moxifloxacin HCl [Avelox] 400 mg PO DAILY 10 Days #10 tab Referrals: Quita Ly DO [Primary Care Provider] - 1-2 days Melvina Pena MD [STAFF PHYSICIAN] - 1-2 days
[2024-01-03 04:33] VITALS: TEMP 98.2
[2024-01-03] MEDS: SODIUM CHLORIDE 0.9% 1,000 ML IV STA (04:42)
[2024-01-03 04:50] LABS: Basophils % (A) 0 %; Eosinophils # (A) 0.5 k/uL (0-0.7); Eosinophils % (A) 5 %; HCT 39.3 % (34.0-46.0); HGB 13.2 gm/dL (11.4-16.0); Lymphocytes # (A) 0.8 k/uL (1.0-4.8); Lymphocytes % (A) 7 %; MCHC 33.7 g/dL (31.0-37.0); MCV 86.2 fL (80.0-100.0); Mean Platelet Volume 7.9; Monocytes # (A) 0.6 k/uL (0-1.0); Monocytes % (A) 5 %; Neutrophils # (A) 9.3 k/uL (1.3-7.7); Neutrophils % (A) 82 %; Platelet Count 291 k/uL (150-450); RBC 4.56 m/uL (3.80-5.40); RDW 14.4 % (11.5-15.5); WBC 11.3 k/uL (3.8-10.6)
[2024-01-03 05:02] LABS: ALT 19 U/L (4-34); AST 25 U/L (14-36); African American GFR (CKD) >90 (>60 ml/min/1.73 sqM); Albumin 3.6 g/dL (3.5-5.0); Alkaline Phosphatase 68 U/L (38-126); Amylase 62 U/L (30-110); Anion Gap 8 mmol/L; Blood Urea Nitrogen 12 mg/dL (7-17); Calcium 8.9 mg/dL (8.4-10.2); Carbon Dioxide 24 mmol/L (22-30); Chloride 98 mmol/L (98-107); Glucose 105 mg/dL (74-99); Lipase 46 U/L (23-300); Non-African American GFR(CKD) 83 (>60 ml/min/1.73 sqM); Potassium 3.5 mmol/L (3.5-5.1); Sodium 130 mmol/L (137-145); Total Bilirubin 0.8 mg/dL (0.2-1.3)
[2024-01-03 05:07] LABS: INR 0.9 (<1.2); Partial Thromboplastin Time 22.2 sec (22.0-30.0); Prothrombin Time 10.1 sec (10.0-12.5)
[2024-01-03] MEDS: PANTOPRAZOLE 40 MG/10 ML VIAL IVP STA (06:52)
[2024-01-03] MEDS: MORPHINE SULFATE 4 MG/ML SYRINGE IVP STA (06:52)
[2024-01-03] MEDS: ONDANSETRON 4 MG/2 ML VIAL IVP STA (06:52)
--- NOTE | 2024-01-03 07:51 | CT ---
EXAMINATION TYPE: CT abdomen pelvis w con DATE OF EXAM: 01/03/2024 COMPARISON: 03/26/2021 HISTORY: 78-year-old female Patient states abdominal pain with blood in stool TECHNIQUE: Contiguous axial scanning of the abdomen and pelvis following administration of 100 ml Iso katerine 300 IV contrast. Delayed images through the kidneys and coronal/sagittal reconstructions perform ed. CT DLP: 747.4 mGycm Automated exposure control for dose reduction was used. FINDINGS: Heart is enlarged. Right intraventricular pacer leads noted. No pericardial effusion. Stran dy atelectasis or scarring at the lower lungs. Calcified left hilar lymph node suggests sequela of pr ior granulomatous disease. Some focal fat along the anterior falciform ligament. Tiny 3 mm, oval cyst right liver lobe. No other focal liver lesion. No biliary ductal dilatation. Portal venous system is patent. Redemonstrate a small hiatal hernia. Gallbladder, adrenal glands, kidneys, spleen with hilar splenule, and pancreas within normal limits. Scattered moderate atherosclerotic calcifications abdominal aorta and iliac arteries. No dilated small bowel, free fluid, or free air. No mesenteric or retroperitoneal lymphadenopathy. Moderate to severe circumferential wall thickening extending from the mid descending colon down to th e distal sigmoid colon. There are areas of underlying diverticulosis by inflammation does not appear to be limited to these areas. Associated long segment mild pericolonic fat stranding Bladder partially distended. Uterus surgically absent. Ovaries are visualized. Mildly enlarged 1.1 cm left external iliac chain lymph node probably reactive as is an asymmetrically larger left inguinal lymph node measuring up to 1.5 cm. Bones: Status post L4-L5 posterior and interbody lumbar fusion. Moderate to severe degenerative disc disease above and L2-L3 and L3-L4. IMPRESSION: 1. A MODERATE TO SEVERE NONSPECIFIC LONG SEGMENT COLITIS EXTENDING FROM THE MID DESCENDING COLON TO T HE DISTAL SIGMOID COLON. THERE IS DIVERTICULAR CHANGE ALONG THIS REGION BUT INFLAMMATION IS NOT LIMIT ED TO A PARTICULAR DIVERTICULUM TO SUGGEST DIVERTICULITIS. NO ABSCESS OR FREE AIR. 2. SMALL HIATAL HERNIA.
[2024-01-03 08:18] VITALS: BP 145/83; PULSE 99; RESP 18
== END 2024-01-03 08:22 | disposition home or self-care (01) ==
LOC: EC 03:59
DX: K52.9 Noninfective gastroenteritis and colitis, unspecified (principal); K44.9 Diaphragmatic hernia without obstruction or gangrene; Z88.2 Allergy status to sulfonamides; Z88.6 Allergy status to analgesic agent; Z88.8 Allergy status to other drugs, medicaments and biological substances
CPT/HCPCS: 36415; 80053; 82150; 83605; 83690; 85025; 85610; 85730; 74177; 99284; 96374; 96375; 96361; J2405; C9113; Q9967

== ENCOUNTER → 2024-05-13 | Outpatient (CLI) | payer MEDICARE ==
--- NOTE | 2024-05-13 15:59 | MM ---
Reason for Exam: Screening (asymptomatic). Last screening mammogram was performed 12 month(s) ago. Patient History: Menarche at age 16. First Full-Term at age 23. Right ovary removed at age 45. Hysterectomy at age 45. Estrogen, from age 44 until age 57. 1971, Benign Excisional Biopsy on the left side. Maternal cousin had breast cancer, age 55. Maternal aunt had breast cancer, age 60. Maternal cousin had breast cancer, age 56. Maternal cousin had breast cancer, age 57. Risk Values: Tania 5 year model risk: 1.7%. NCI Lifetime model risk: 3.5%. Prior Study Comparison: 09/23/2021 Right Diagnostic Mammogram, [facility]. 04/04/2022 Bilateral MG 3D diag mammo w/cad [facility], [facility]. 05/11/2023 Bilateral MG 3D screening mammo w/cad, [facility]. Tissue Density: There are scattered areas of fibroglandular density. Findings: Analyzed By CAD. The pattern is symmetrical. Benign vascular calcification is present bilaterally. Pacemaker overlies the left chest. Within the right breast there is a focal area of slight increased density which may contain a few punctate calcifications on the craniocaudal view. This is 5 cm from the nipple in the midportion of the breast. Additional workup recommended. Left breast:No suspicious groups of microcalcifications, spiculated or lobular masses, architectural distortion or other secondary signs of malignancy are mammographically apparent. Overall Assessment: Incomplete: need additional imaging evaluation, BI-RAD 0 Management: Diagnostic Mammogram of the right breast. A negative mammogram report should not preclude additional follow up of suspicious palpable abnormalities. Patient should continue monthly self breast exam. A clinical breast exam by your physician is recommended on an annual basis and results should be correlated with mammographic findings. Note on Tania scores and lifetime risk: 1. A Tania score greater than 3% is considered moderate risk. If this is the case, consider specialist referral to assess eligibility for a risk reducing agent. 2. If overall lifetime risk for the development of breast cancer is 20% or higher, the patient may qualify for future screening with alternating mammogram and breast MRI. [facility], , 05/13/2024 3:56 PM. Electronically signed and approved by: Hans Pablo D.O. Radiologis
== END | disposition home or self-care (01) ==
LOC: RADMAMWWP 08:19
PROVIDERS: ATTEND Family Medicine
DX: Z12.31 Encounter for screening mammogram for malignant neoplasm of breast
CPT/HCPCS: 77063; 77067

== ENCOUNTER → 2024-05-22 | Outpatient (CLI) | payer MEDICARE | END | disposition home or self-care (01) | LOC: LABWHC1 09:06 | PROVIDERS: ATTEND Orthopaedic Surgery | DX: Z01.812 Encounter for preprocedural laboratory examination (principal); Z13.1 Encounter for screening for diabetes mellitus; M12.9 Arthropathy, unspecified; D64.9 Anemia, unspecified; E55.9 Vitamin D deficiency, unspecified; N39.0 Urinary tract infection, site not specified | CPT/HCPCS: 36415; 82040 ==

== ENCOUNTER → 2024-05-22 | Outpatient (CLI) | payer MEDICARE ==
--- NOTE | 2024-05-22 08:56 | MM ---
Reason for Exam: Additional evaluation requested from abnormal screening. Last screening mammogram was performed less than 1 month ago. Patient History: Menarche at age 16. First Full-Term at age 23. Right ovary removed at age 45. Hysterectomy at age 45. Postmenopausal. Estrogen, from age 44 until age 57. 1971, Benign Excisional Biopsy on the left side. Maternal cousin had breast cancer, age 55. Maternal aunt had breast cancer, age 60. Maternal cousin had breast cancer, age 56. Maternal cousin had breast cancer, age 57. Paternal aunt (gr) had breast cancer. Risk Values: Tania 5 year model risk: 1.7%. NCI Lifetime model risk: 3.5%. Prior Study Comparison: 11/14/2016 Screening Mammogram, Unknown. 11/22/2017 Screening Mammogram, Unknown. 02/27/2019 Bilateral Screening Mammogram, [facility]. 03/17/2020 Bilateral Screening Mammogram, [facility]. 03/18/2021 Bilateral Screening Mammogram, [facility]. 03/22/2021 Right Diagnostic Mammogram, [facility]. 09/23/2021 Right Diagnostic Mammogram, [facility]. 04/04/2022 Bilateral MG 3D diag mammo w/cad [facility], [facility]. 05/11/2023 Bilateral MG 3D screening mammo w/cad, [facility]. 05/13/2024 Bilateral MG 3D screening mammo w/cad, [facility]. Tissue Density: Right: There are scattered areas of fibroglandular density. Findings: Analyzed By CAD. Parenchymal pattern appears stable Under compression no suspicious persistent nodularity or lobular mass is evident. No suspicious cluster of microcalcifications evident. No suspicious groups of microcalcifications, spiculated or lobular masses, architectural distortion or other secondary signs of malignancy are mammographically apparent. Overall Assessment: Benign, BI-RAD 2 Management: Screening Mammogram of both breasts in 1 year. A negative mammogram report should not preclude additional follow up of suspicious palpable abnormalities. Patient should continue monthly self breast exam. A clinical breast exam by your physician is recommended on an annual basis and results should be correlated with mammographic findings. Note on Tania scores and lifetime risk: 1. A Tania score greater than 3% is considered moderate risk. If this is the case, consider specialist referral to assess eligibility for a risk reducing agent. 2. If overall lifetime risk for the development of breast cancer is 20% or higher, the patient may qualify for future screening with alternating mammogram and breast MRI. [facility], , 05/22/2024 8:53 AM. Electronically signed and approved by: Hans Pablo D.O. Radiologis
== END | disposition home or self-care (01) ==
LOC: RADMAMWWP 08:15
PROVIDERS: ATTEND Family Medicine
DX: R92.8 Other abnormal and inconclusive findings on diagnostic imaging of breast
CPT/HCPCS: 77061; 77065

== ENCOUNTER 2024-06-13 08:42 | Day surgery (SDC) | payer MEDICARE ==
[2024-06-10 11:16] VITALS: BMI 26.9
[~2024-06-13 08:42] MED LIST changes: -DEXAMETHASONE SOD PHOSPHATE 4 MG/ML 1 ML VIAL IV ONE; -HYDROmorphone 0.5 MG/0.5 ML SYRINGE IVP PRN; -LIDOCAINE 1% (10MG/ML) FOR IV START INTRADERMA PRN; -ONDANSETRON 4 MG/2 ML VIAL IVP ONE; +ceFAZolin 1 GM in SODIUM CHLORIDE 0.9% IRRIG BTL 250 ML IRRIGATION PRN; -ceFAZolin 1,000 MG in SODIUM CHLORIDE 0.9% IRRIGATIO 1,000 ML IRRIGATION PRN
[2024-06-13 09:12] LABS: Basophils % (A) 1 %; Eosinophils # (A) 0.3 k/uL (0-0.7); Eosinophils % (A) 4 %; HCT 37.6 % (34.0-46.0); HGB 12.6 gm/dL (11.4-16.0); Lymphocytes # (A) 0.7 k/uL (1.0-4.8); Lymphocytes % (A) 11 %; MCH 28.5 pg (25.0-35.0); MCHC 33.3 g/dL (31.0-37.0); MCV 85.4 fL (80.0-100.0); Mean Platelet Volume 8.5; Monocytes # (A) 0.4 k/uL (0-1.0); Monocytes % (A) 6 %; Neutrophils # (A) 5.1 k/uL (1.3-7.7); Neutrophils % (A) 77 %; Platelet Count 268 k/uL (150-450); RBC 4.41 m/uL (3.80-5.40); RDW 14.4 % (11.5-15.5); WBC 6.6 k/uL (3.8-10.6)
[2024-06-13] MEDS: SODIUM CHLORIDE 0.9% 1,000 ML IV SCH ×2 (09:20)
[2024-06-13] MEDS: IV FLUID CONTINUATION 1,000 ML IV ONE (09:21)
[2024-06-13 09:30] LABS: African American GFR (CKD) 81 (>60 ml/min/1.73 sqM); Anion Gap 3 mmol/L; Blood Urea Nitrogen 17 mg/dL (7-17); Calcium 9.4 mg/dL (8.4-10.2); Carbon Dioxide 35 mmol/L (22-30); Chloride 97 mmol/L (98-107); Glucose 92 mg/dL (74-99); Non-African American GFR(CKD) 70 (>60 ml/min/1.73 sqM); Potassium 4.1 mmol/L (3.5-5.1); Sodium 135 mmol/L (137-145)
[2024-06-13 09:47] VITALS: TEMP 98.1
[2024-06-13] MEDS: MIDAZOLAM 2 MG/2 ML VIAL IVP ONE ×2 (10:38→10:45)
[2024-06-13] MEDS: ceFAZolin 1,000 MG VIAL IVPB ONE (10:38)
[2024-06-13] MEDS: LIDOCAINE 1% INJ 10MG/ML (20 ML MDV) SQ ONE (10:45)
[2024-06-13] MEDS: ceFAZolin 2 GM in SODIUM CHLORIDE 0.9% 500 ML 500 ML IRRIGATION ONE (11:16)
[2024-06-13] MEDS ORDERED: ACETAMINOPHEN TAB 325 MG TAB PO PRN (11:27)
--- NOTE | 2024-06-13 11:41 | P.PCN ---
Date of Procedure: 06/13/24 Description of Procedure: #1 explantation of old pulse generator #2 implantation of a new pulse generator dual-chamber #3 cardiac fluoroscopy Procedure performed by Dr. Jennifer Jackson Moderate conscious sedation time was 32 minutes. Patient was administered Versed. Oxygen saturation hemodynamic and EKG were monitored closely. Clinical information: This is a 78-year-old lady with a history of hypertension hyperlipidemia sick sinus syndrome with a permanent pacemaker on which she is not dependent. This is a backup pacemaker. The device reached NIX[place] and therefore was advised to be explanted and a new pulse generator implanted and she was brought in for the procedure electively. I discussed with the patient on phone regarding the rationale risks benefits options and saw her today again before the procedure. She understood all details and wished to proceed with the procedure. Procedure note: Under strict aseptic precautions and local anesthesia and fluoroscopy a linear incision was made over the existing pulse generator. Dissection was performed with a cautery and blunt dissection. The existing pulse generator was delivered from the pocket. The leads were disconnected and each lead was checked individually for sensitivities thresholds and impedance. Both the leads had very at much acceptable numbers. The old generator was then taken out. A new generator which was a [employer] generator was connected to the existing leads. The pocket was irrigated copiously with antibiotic solution. Just as the incision was given patient received intravenous antibiotic as well. The device was again checked. The new generator was secured to the underlying muscle with a 0 silk. The wound was then closed in 2 layers. Excellent hemostasis was secured. Patient tolerated the procedure well without complication. Device information: Old generator garage hand was [employer] model number ACC ENT DR 2210 serial #[id number]. The atrial lead garage hand and this was the same existing lead garage hand [employer] model 1888 TC 46 cm serial number [id number]. The ventricular lead was garage hand was [employer] same lead was used model #1888 TC 52 cm serial number [id number]. The right atrial lead interrogation revealed P waves were 3.0 mV. Impedance was 342 ohms. The threshold was 0.875 V at 0.4 ms. The RV lead numbers where R waves 7.8 mV, impedance 589 ohms, threshold 0.75 V at 0.4 ms. The pacemaker was set in a DDDR mode with a lower rate of 55 high rate of 110 paced AV delay of 250 ms and the sensed AV delay of 220 ms. With the settings patient had more of her intrinsic rhythm. Patient tolerated the procedure well without complications.
[2024-06-13] MEDS: ACETAMINOPHEN TAB 500 MG TAB PO STA (12:43)
[2024-06-13 14:35] VITALS: BP 153/72; PULSE 52; RESP 16
== END 2024-06-13 14:28 | disposition home or self-care (01) ==
LOC: CATHEP 08:42
PROVIDERS: ATTEND Internal Medicine Interventional Cardiology
CPT/HCPCS: 33228; 80048; 85025

== ENCOUNTER → 2025-02-10 | Outpatient (CLI) | payer MEDICARE ==
--- NOTE | 2025-02-10 15:21 | US ---
EXAMINATION TYPE: US extremity nonvasculr ltd LT DATE OF EXAM: 02/10/2025 COMPARISON: NONE CLINICAL INDICATION: Female, 79 years old with history of R22.42 LOCALIZED SWELLING, MASS AND LUMP, L EFT LOW; Left calf lump x 3 months with increase in size and redness to skin; Patient denies any sign s, symptoms, or relevant history TECHNIQUE: Grayscale imaging of the left inner calf. FINDINGS: ? Varicose vein at patients AOC , no organizing fluid collection or mass.In the area of co ncern there is possible dilated varicose vein IMPRESSION: In the area of concern there is possible dilated varicose vein. No suspicious masses or l ymphadenopathy identified. [facility], Workstation: [facility], 02/10/2025 3:18 PM
== END | disposition home or self-care (01) ==
LOC: RADUSWWP 14:53
PROVIDERS: ATTEND Family Medicine
DX: R22.42 Localized swelling, mass and lump, left lower limb (principal)